=== PATIENT | female | born 1970 | race American Indian/Alaskan Native ===

== ENCOUNTER 2016-09-15 11:07 | Emergency (ER) | payer SELFPAY ==
[2016-09-15 12:51] LABS: Basophils % (Auto) 0.7 % (0.0-1.8); Hematocrit 40.5 % (30.3-42.9); Hemoglobin 13.5 gm/dl (10.1-14.3); Mean Corpuscular HGB Conc 33 % (30-34); Mean Corpuscular Hemoglobin 30 pg (28-32); Mean Corpuscular Volume 89 fl (79-97); Platelet Count 193 K/mm3 (140-440); Red Blood Count 4.55 M/mm3 (3.65-5.03); Red Cell Distribution Width 13.4 % (13.2-15.2); White Blood Count 6.3 K/mm3 (4.5-11.0)
[2016-09-15 13:06] LABS: Creatine Kinase MB 1.5 ng/mL (0.0-4.0)
[2016-09-15 13:08] LABS: Alanine Aminotransferase 13 units/L (7-56); Albumin 4.3 g/dL (3.9-5); Albumin/Globulin Ratio 1.3 %; Alkaline Phosphatase 90 units/L (35-129); Bilirubin,Total 0.4 mg/dL (0.1-1.2); Blood Urea Nitrogen 12 mg/dL (7-17); Calcium 8.5 mg/dL (8.4-10.2); Carbon Dioxide 28 mmol/L (22-30); Chloride 102.2 mmol/L (98-107); Creatine Kinase 129 units/L (30-135); Glucose 100 mg/dL (65-100); Lipase 18 units/L (13-60); Potassium 3.8 mmol/L (3.6-5.0); Sodium 143 mmol/L (137-145); Total Protein 7.5 g/dL (6.3-8.2)
[2016-09-15 13:15] LABS: Anion Gap 17 mmol/L
[2016-09-15 13:47] LABS: Bilirubin,Urine NEG (Negative); Blood,Urine NEG (Negative); Ketones,Urine NEG (Negative); Leukocyte Esterase,Urine NEG (Negative); Mucus,Urine FEW /HPF; Nitrite,Urine NEG (Negative); Protein,Urine <15 mg/dL mg/dL (Negative); Urobilinogen,Urine < 2.0 mg/dL (<2.0)
[2016-09-15] MEDS ORDERED: CATAPRES PO ONE (14:28)
--- NOTE | 2016-09-15 14:28 | Emergency Department Report ---
Chief Complaint: Chest Pain Stated Complaint: CHEST PAIN/SOB/DIZZINESS/ABD PAIN - HPI History of Present Illness: Patient with hx of HTN, CHF, epilepsy, acid reflux c/o sharp left-sided chest pain and mid-upper abdmonial pain x couple of days. Reports headaches, nausea, vomiting, dizziness, and light-headedness. Reports hysterectomy 2002. - Exam Vital Signs: Vital Signs 09/15/16 11:30 Temperature 97.2 F L Pulse Rate 78 Respiratory 14 Rate Blood Pressure 209/134 O2 Sat by Pulse 97 Oximetry Physical Exam: General: Chronically debilitated-appearing. NAD. MSE screening note: Focused history and physical exam performed. Due to findings the following was ordered: ED Disposition for MSE Condition: Stable
[2016-09-15] MEDS ORDERED: NITROSTAT SL PRN (17:31)
[2016-09-15] MEDS ORDERED: PEPCID IV ONE (17:31)
[2016-09-15] MEDS ORDERED: ALUM-MAG HYDROX-SIMETH 200-200-20MG/5ML PO ONE (17:31)
--- NOTE | 2016-09-15 17:32 | Emergency Department Report ---
[id number] CHEST PAIN/SOB/DIZZINESS/ABD PAIN Time Seen by Provider: 09/15/16 17:09 Source: patient, RN notes reviewed Mode of arrival: Ambulatory Limitations: No Limitations - History of Present Illness Initial comments: This is a 46-year-old female, whom I have evaluated in the past. Her make up girl is Dr. Smith. Past medical history includes nonischemic cardiomyopathy, hypertension, high cholesterol, seizure disorder. Patient had an echocardiogram in November 2015, which demonstrated an ejection fraction of 40-45%, mildly decreased systolic left ventricular function. 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 Of note, patient has had multiple evaluations in this hospital for hypertension , chest pain, shortness of breath and near syncope. The patient presents today with her typical constellation of symptoms. She complains of central and left-sided chest pain, that radiates to the left upper extremity. There is nausea, shortness of breath, and generalized weakness. Symptoms have been present since the morning. She also complains of epigastric and right upper quadrant pain. It is associated with nausea. There is no lower abdominal pain. No irritative and obstructive urinary symptoms. Patient also complains of dizziness which she describes as sensation of room spinning. There is no sudden or severe thunderclap headache. There is no leg pain. There is no leg swelling. No recent trips greater than 4 hours. No recent hospital admissions. Does not take control tablets. -: Gradual Location: chest, abdomen Radiation: extremity Quality: burning, aching Consistency: intermittent Improves with: rest Worsens with: movement Associated Symptoms: chest pain, loss of appetite, malaise, nausea/vomiting, shortness of breath, weakness - Related Data Previous Rx's Medication Instructions Recorded Last Taken Type ALBUTEROL Inhaler [ProAir HFA 2 puff IH QID PRN #1 inhalation 11/17/15 Unknown Rx Inhaler] Aspirin [Aspirin BABY CHEW TAB] 81 mg PO QDAY #30 tab.chew 11/17/15 Unknown Rx Beclomethasone Dipropionate [Qvar 1 inhalation IH BID PRN #1 11/17/15 Unknown Rx 80MCG] aer.w.adap Butalb/Acetamin/Caff 50-325-40 1 tab PO Q8H PRN #20 tablet 11/17/15 Unknown Rx [Fioricet] Divalproex ER [Depakote ER] 1,000 mg PO QDAY #60 tablet 11/17/15 Unknown Rx Rosuvastatin (Nf) [Crestor] 20 mg PO QHS #30 tablet 11/17/15 Unknown Rx Spironolactone [Aldactone] 25 mg PO QDAY #30 tablet 11/17/15 Unknown Rx hydrALAZINE [Apresoline TAB] 100 mg PO Q8HR #90 tablet 11/17/15 Unknown Rx Carvedilol [Coreg] 6.25 mg PO BID #60 tablet 09/15/16 Unknown Rx Famotidine [Pepcid] 20 mg PO QDAY #20 tablet 09/15/16 Unknown Rx Ondansetron [Zofran Odt] 4 mg PO QID PRN #20 tab.rapdis 09/15/16 Unknown Rx Allergies Allergy/AdvReac Type Severity Reaction Status Date / Time Iodinated Contrast Media - Allergy Rash Verified 11/14/15 22:10 IV Dye lisinopril Allergy Swelling Verified 11/14/15 22:10 morphine Allergy Rash Verified 11/14/15 22:10 ED Review of Systems ROS: Stated complaint: CHEST PAIN/SOB/DIZZINESS/ABD PAIN Other details as noted in HPI Constitutional: malaise Eyes: denies: eye discharge ENT: denies: epistaxis Respiratory: see HPI Cardiovascular: chest pain Gastrointestinal: abdominal pain Genitourinary: denies: urgency, dysuria Skin: denies: lesions Neurological: headache Psychiatric: anxiety ED Past Medical Hx - Past Medical History Hx Hypertension: Yes Hx Heart Attack/AMI: No Hx Congestive Heart Failure: Yes Hx Diabetes: No Hx Deep Vein Thrombosis: No Hx Pulmonary Embolism: No Hx GERD: Yes Hx Sickle Cell Disease: No Hx Headaches / Migraines: Yes Hx Seizures: Yes Hx Asthma: Yes Hx COPD: Yes Hx Tuberculosis: No Hx Dementia: No Hx HIV: No - Surgical History Hx Coronary Stent: No Hx Open Heart Surgery: No Hx Pacemaker: No Hx Internal Defibrillator: No Hx Cholecystectomy: No Hx Appendectomy: No Hx Breast Surgery: Yes (Breast reduction) Additional Surgical History: hyst - Social History Smoking Status: Never Smoker Substance Use Type: None - Medications Home Medications: Home Medications Medication Instructions Recorded Confirmed Last Taken Type ALBUTEROL Inhaler [ProAir HFA 2 puff IH QID PRN #1 inhalation 11/17/15 Unknown Rx Inhaler] Aspirin [Aspirin BABY CHEW TAB] 81 mg PO QDAY #30 tab.chew 11/17/15 Unknown Rx Beclomethasone Dipropionate [Qvar 1 inhalation IH BID PRN #1 11/17/15 Unknown Rx 80MCG] aer.w.adap Butalb/Acetamin/Caff 50-325-40 1 tab PO Q8H PRN #20 tablet 11/17/15 Unknown Rx [Fioricet] Divalproex ER [Depakote ER] 1,000 mg PO QDAY #60 tablet 11/17/15 Unknown Rx Rosuvastatin (Nf) [Crestor] 20 mg PO QHS #30 tablet 11/17/15 Unknown Rx Spironolactone [Aldactone] 25 mg PO QDAY #30 tablet 11/17/15 Unknown Rx hydrALAZINE [Apresoline TAB] 100 mg PO Q8HR #90 tablet 11/17/15 Unknown Rx Carvedilol [Coreg] 6.25 mg PO BID #60 tablet 09/15/16 Unknown Rx Famotidine [Pepcid] 20 mg PO QDAY #20 tablet 09/15/16 Unknown Rx Ondansetron [Zofran Odt] 4 mg PO QID PRN #20 tab.rapdis 09/15/16 Unknown Rx ED Physical Exam - General Limitations: No Limitations General appearance: alert, in no apparent distress - Head Head exam: Present: atraumatic, normocephalic - Eye Eye exam: Present: normal appearance, PERRL, EOMI. Absent: nystagmus - ENT ENT exam: Present: normal exam, normal orophraynx, mucous membranes moist, normal external ear exam - Neck Neck exam: Present: normal inspection, full ROM. Absent: tenderness, meningismus - Respiratory Respiratory exam: Present: normal lung sounds bilaterally. Absent: respiratory distress, wheezes, rales, rhonchi, stridor, chest wall tenderness - Cardiovascular Cardiovascular Exam: Present: regular rate, normal rhythm, normal heart sounds. Absent: bradycardia, tachycardia, irregular rhythm, systolic murmur, diastolic murmur, rubs, gallop - GI/Abdominal GI/Abdominal exam: Present: soft, tenderness, normal bowel sounds, other (there is epigastric and right upper quadrant tenderness, there is no rebound, guarding or peritoneal signs.). Absent: distended, guarding, rebound, rigid, pulsatile mass - Extremities Exam Extremities exam: Present: normal inspection, full ROM, normal capillary refill. Absent: tenderness, pedal edema, joint swelling, calf tenderness - Back Exam Back exam: Present: normal inspection, full ROM. Absent: tenderness, CVA tenderness (R), CVA tenderness (L), muscle spasm, paraspinal tenderness, vertebral tenderness - Neurological Exam Neurological exam: Present: alert, oriented X3, normal gait (there is no pass pointing. Normal [id number]. Negative pronator drift. Normal gait.), other (Extraocular movements intact. Tongue midline. No facial droop. Facial sensation intact to light touch in the V1, V2, V3 distribution bilaterally. 5 and 5 strength in 4 extremities.. Sensation is intact to light touch in 4 extremities.). Absent: motor sensory deficit - Psychiatric Psychiatric exam: Present: anxious - Skin Skin exam: Present: warm, dry, intact, normal color. Absent: rash ED Course Vital Signs 09/15/16 09/15/16 09/15/16 11:30 17:39 17:57 Temperature 97.2 F L Pulse Rate 78 87 Respiratory 14 23 20 Rate Blood Pressure 209/134 Blood Pressure [Right] O2 Sat by Pulse 97 98 Oximetry 09/15/16 09/15/16 09/15/16 18:00 18:05 18:09 Temperature Pulse Rate 82 94 H 87 Respiratory 20 Rate Blood Pressure 227/134 227/134 227/134 Blood Pressure [Right] O2 Sat by Pulse 98 Oximetry 09/15/16 09/15/16 19:07 20:11 Temperature 98.2 F 98.1 F Pulse Rate 84 91 H Respiratory 18 16 Rate Blood Pressure 180/111 Blood Pressure 180/111 175/103 [Right] O2 Sat by Pulse 100 100 Oximetry - Reevaluation(s) Reevaluation #1: 09/15/16 18:09 Differential diagnosis: Hypertensive urgency/emergency, peripheral vertigo, intracranial hemorrhage, acute coronary syndrome, noncompliance with medications , GERD, gastritis, biliary colic Assessment and plan: 46-year-old female with known nonischemic cardiomyopathy, negative nuclear stress test in 2014, low probability nuclear medicine study last year when I evaluated her, with her typical constellation of chest pain, nausea, vomiting, dizziness, hypertension. There are no pulmonary embolus or DVT risk factors, the patient is low risk by well's criteria, and she is perc negative. She is actively vomiting, currently her blood pressure is 240 systolic. She will be given Zofran, hydralazine, as he did not to glycerin. Noncontrast CAT scan of the head is ordered. Right upper quadrant ultrasound is ordered. Laboratory studies reviewed and are unremarkable. We will reassess once or imaging studies have resulted, and once her therapies have taken effect. Reevaluation #2: 09/15/16 20:05 I have discussed the case with the covering make up girl for patient's private make up girl, Dr. Claudio. He recommends discharge and outpatient cardiology follow-up. Patient has presented to this hospital multiple times for similar complaints. She's had recent echocardiograms, negative nuclear stress test, negative troponin, low probability nuclear medicine study. Patient's blood pressure is improved, her right upper quadrant ultrasound demonstrates no acute disease that would require emergent surgical intervention , her noncontrast CAT scan of the head is negative, and she is tolerating ice chips. Her carvedilol will be refilled. ED Medical Decision Making - Lab Data Result diagrams: 09/15/16 12:25 09/15/16 12:25 Vital Signs 09/15/16 09/15/16 09/15/16 11:30 17:57 18:05 Temperature 97.2 F L Pulse Rate 78 87 94 H Respiratory 14 20 Rate Blood Pressure 209/134 227/134 O2 Sat by Pulse 97 98 Oximetry 09/15/16 18:09 Temperature Pulse Rate 87 Respiratory Rate Blood Pressure 227/134 O2 Sat by Pulse Oximetry Lab Results 09/15/16 09/15/16 09/15/16 Range/Units 12:25 12:25 12:25 WBC 6.3 (4.5-11.0) K/mm3 RBC 4.55 (3.65-5.03) M/mm3 Hgb 13.5 (10.1-14.3) gm/dl Hct 40.5 (30.3-42.9) % MCV 89 (79-97) fl MCH 30 (28-32) pg MCHC 33 (30-34) % RDW 13.4 (13.2-15.2) % Plt Count 193 (140-440) K/mm3 Lymph % (Auto) 33.9 (13.4-35.0) % [place] % (Auto) 6.2 (0.0-7.3) % Eos % (Auto) 3.0 (0.0-4.3) % Baso % (Auto) 0.7 (0.0-1.8) % Lymph # 2.1 (1.2-5.4) K/mm3 [place] # 0.4 (0.0-0.8) K/mm3 Eos # 0.2 (0.0-0.4) K/mm3 Baso # 0.0 (0.0-0.1) K/mm3 Seg Neutrophils % 56.2 (40.0-70.0) % Seg Neutrophils # 3.5 (1.8-7.7) K/mm3 Sodium 143 (137-145) mmol/L Potassium 3.8 (3.6-5.0) mmol/L Chloride 102.2 (98-107) mmol/L Carbon Dioxide 28 (22-30) mmol/L Anion Gap 17 mmol/L BUN 12 (7-17) mg/dL Creatinine 0.8 (0.7-1.2) mg/dL Estimated GFR > 60 ml/min BUN/Creatinine Ratio 15.00 % Glucose 100 (65-100) mg/dL Calcium 8.5 (8.4-10.2) mg/dL Total Bilirubin 0.4 (0.1-1.2) mg/dL AST 15 (5-40) units/L ALT 13 (7-56) units/L Alkaline Phosphatase 90 (35-129) units/L Total Creatine Kinase 129 (30-135) units/L CK-MB (CK-2) 1.5 (0.0-4.0) ng/mL CK-MB (CK-2) Rel Index 1.1 (0-4) Troponin T < 0.010 (0.00-0.029) ng/mL Total Protein 7.5 (6.3-8.2) g/dL Albumin 4.3 (3.9-5) g/dL Albumin/Globulin Ratio 1.3 % Lipase 18 (13-60) units/L HCG, Qual Negative (Negative) Urine Color (Yellow) Urine Turbidity (Clear) Urine pH (5.0-7.0) Ur Specific [place] (1.003-1.030) Urine Protein (Negative) mg/dL Urine Glucose (UA) (Negative) mg/dL Urine Ketones (Negative) mg/dL Urine Blood (Negative) Urine Nitrite (Negative) Urine Bilirubin (Negative) Urine Urobilinogen (<2.0) mg/dL Ur Leukocyte Esterase (Negative) Urine WBC (Auto) (0.0-6.0) /HPF Urine RBC (Auto) (0.0-6.0) /HPF U Epithel Cells (Auto) (0-13.0) /HPF Urine Mucus /HPF 09/15/16 09/15/16 Range/Units 13:00 16:20 WBC (4.5-11.0) K/mm3 RBC (3.65-5.03) M/mm3 Hgb (10.1-14.3) gm/dl Hct (30.3-42.9) % MCV (79-97) fl MCH (28-32) pg MCHC (30-34) % RDW (13.2-15.2) % Plt Count (140-440) K/mm3 Lymph % (Auto) (13.4-35.0) % [place] % (Auto) (0.0-7.3) % Eos % (Auto) (0.0-4.3) % Baso % (Auto) (0.0-1.8) % Lymph # (1.2-5.4) K/mm3 [place] # (0.0-0.8) K/mm3 Eos # (0.0-0.4) K/mm3 Baso # (0.0-0.1) K/mm3 Seg Neutrophils % (40.0-70.0) % Seg Neutrophils # (1.8-7.7) K/mm3 Sodium (137-145) mmol/L Potassium (3.6-5.0) mmol/L Chloride (98-107) mmol/L Carbon Dioxide (22-30) mmol/L Anion Gap mmol/L BUN (7-17) mg/dL Creatinine (0.7-1.2) mg/dL Estimated GFR ml/min BUN/Creatinine Ratio % Glucose (65-100) mg/dL Calcium (8.4-10.2) mg/dL Total Bilirubin (0.1-1.2) mg/dL AST (5-40) units/L ALT (7-56) units/L Alkaline Phosphatase (35-129) units/L Total Creatine Kinase (30-135) units/L CK-MB (CK-2) (0.0-4.0) ng/mL CK-MB (CK-2) Rel Index (0-4) Troponin T < 0.010 (0.00-0.029) ng/mL Total Protein (6.3-8.2) g/dL Albumin (3.9-5) g/dL Albumin/Globulin Ratio % Lipase (13-60) units/L HCG, Qual (Negative) Urine Color Yellow (Yellow) Urine Turbidity Clear (Clear) Urine pH 8.0 H (5.0-7.0) Ur Specific [place] 1.016 (1.003-1.030) Urine Protein <15 mg/dl (Negative) mg/dL Urine Glucose (UA) Neg (Negative) mg/dL Urine Ketones Neg (Negative) mg/dL Urine Blood Neg (Negative) Urine Nitrite Neg (Negative) Urine Bilirubin Neg (Negative) Urine Urobilinogen < 2.0 (<2.0) mg/dL Ur Leukocyte Esterase Neg (Negative) Urine WBC (Auto) 1.0 (0.0-6.0) /HPF Urine RBC (Auto) 1.0 (0.0-6.0) /HPF U Epithel Cells (Auto) 1.0 (0-13.0) /HPF Urine Mucus Few /HPF - EKG Data 09/15/16 18:12 Normal sinus, 82 bpm, prolonged QTC at 476 ms, borderline left ventricular hypertrophy, T-wave inversion V5 and V6, atrial enlargement, not morphologically consistent with STEMI. When compared to old EKG, appears essentially unchanged. - Radiology Data Radiology results: report reviewed, image reviewed interpreted by me: xr chest: Cardiomegaly, no acute disease. Ultrasound demonstrates no evidence of cholecystitis. Echogenic liver suggests hepatocellular disease, most likely steatosis. Noncontrast CAT scan of the head is negative Critical care attestation.: If time is entered above; I have spent that time in minutes in the direct care of this critically ill patient, excluding procedure time. ED Disposition Clinical Impression: Elevated blood pressure, Abdominal pain Disposition: DISCHARGED TO HOME OR SELFCARE Is pt being admited?: No Does the pt Need Aspirin: No Condition: Good Instructions: Acute Abdominal Pain (ED), Hypertension (ED) Additional Instructions: Continue current outpatient medications. I have given you a refill for your carvedilol. Follow-up with her make up girl within the next 2-3 days. It is very important to closely follow up with her outpatient primary care doctor or make up girl for further management/evaluation/treatment of your hypertension/ elevated blood pressure. Long-term complications of elevated blood pressure include stroke, heart attack, disability, , paralysis, permanent loss of quality of life. I contacted the make up girl covering for your private make up girl, and he reported that he should contact the office in the morning to arrange outpatient follow-up. Return to the ER right away with new pain, worsening pain, migration of pain, fevers or chills, intractable nausea or vomiting, inability to tolerate liquid feeds. Avoid heavy and spicy foods. Prescriptions: Carvedilol [Coreg] 6.25 mg PO BID #60 tablet Famotidine [Pepcid] 20 mg PO QDAY #20 tablet Ondansetron [Zofran Odt] 4 mg PO QID PRN #20 tab.rapdis PRN Reason: Nausea Referrals: KRYSTAL SMITH MD [Primary Care Provider] - 3-5 Days TONI LOUIS MD [Staff Physician] - 3-5 Days
[2016-09-15] MEDS ORDERED: APRESOLINE ONE (18:00)
[2016-09-15] MEDS ORDERED: ZOFRAN IV ONE (18:05)
[2016-09-15] MEDS ORDERED: APRESOLINE IV ONE (18:05)
--- NOTE | 2016-09-15 18:55 | Ultrasound Report ---
FINAL REPORT EXAM: US ABDOMEN LIMITED HISTORY: ruq pain TECHNIQUE: Ultrasound examination of the abdomen PRIORS: None. FINDINGS: The visualized portion of the following structures reveal: Nonspecific increased echogenicity of liver parenchyma may reflect fatty infiltration. No visualized focal liver lesion. No definite liver enlargement on this exam. No evidence of gallbladder calculus or pericholecystic fluid. No evidence of gallbladder wall thickening. Normal diameter CBD. No evidence of pancreas mass in the limited visualized portion. No definite focal abnormality in the right kidney. No hydronephrosis. No evidence of renal calculus. No focal renal lesion. Normal caliber IVC. No evidence of aortic aneurysm. No evidence of ascites. IMPRESSION: Echogenic liver suggesting hepatocellular disease, commonly steatosis
--- NOTE | 2016-09-15 19:29 | Cat Scan Report ---
FINAL REPORT PROCEDURE: CT HEAD/BRAIN WO CON TECHNIQUE: Computerized tomography of the head was performed without contrast material. HISTORY: Dizziness. Hypertension. COMPARISON: No prior studies are available for comparison. FINDINGS: Brain: Brain density appears normal. No evidence of intracranial hemorrhage. No parenchymal hemorrhage, mass lesions or mass effect are seen. No abnormal extraxial fluid collects or masses are seen. Ventricles: Ventricles are normal size and are midline. Bone Windows: No evidence of skull fracture. Paranasal sinuses: Clear Mastoid air cells: Clear IMPRESSION: Negative examination
[2016-09-15 20:15] VITALS: BP 175/103
[2016-09-15] MEDS ORDERED: TYLENOL PO ONE (20:51)
--- NOTE | 2016-09-16 08:02 | XRay Report ---
PORTABLE CHEST: An AP portable view of the chest demonstrates a normal cardiac contour considering the limits of this technique. The lungs are clear with no evidence of infiltrate, fluid or failure. No change compared to the prior study of April 29, 2016. IMPRESSION: Normal portable chest.
== END 2016-09-15 21:00 | disposition home or self-care (01) ==
LOC: ED 11:07
DX: I10 Essential (primary) hypertension (principal); R10.11 Right upper quadrant pain; I50.9 Heart failure, unspecified; K21.9 Gastro-esophageal reflux disease without esophagitis; G43.909 Migraine, unspecified, not intractable, without status migrainosus; R56.9 Unspecified convulsions; J45.909 Unspecified asthma, uncomplicated; J44.9 Chronic obstructive pulmonary disease, unspecified; Z90.710 Acquired absence of both cervix and uterus; Z79.82 Long term (current) use of aspirin; Z88.6 Allergy status to analgesic agent; Z91.041 Radiographic dye allergy status
CPT/HCPCS: 36415; 70450; 71010; 76705; 80053; 81001; 82550; 82553; 83690; 83880; 84484; 84703; 85025; 96374; 96375; 99285; J0360; J2405; 93005; 93010

== ENCOUNTER 2017-02-07 11:47 | Emergency (ER) | payer MEDICAID ==
[2017-02-07 12:08] VITALS: BP 189/133
[2017-02-07] MEDS ORDERED: APRESOLINE PO ONE (12:13)
[2017-02-07] MEDS ORDERED: COREG PO ONE (12:13)
[2017-02-07 12:37] LABS: Basophils % (Auto) 0.7 % (0.0-1.8); Eosinophils % (Auto) 3.1 % (0.0-4.3); Hematocrit 39.3 % (30.3-42.9); Hemoglobin 12.9 gm/dl (10.1-14.3); Mean Corpuscular HGB Conc 33 % (30-34); Mean Corpuscular Hemoglobin 29 pg (28-32); Mean Corpuscular Volume 90 fl (79-97); Platelet Count 165 K/mm3 (140-440); Red Blood Count 4.37 M/mm3 (3.65-5.03); Red Cell Distribution Width 13.5 % (13.2-15.2); White Blood Count 6.8 K/mm3 (4.5-11.0)
[2017-02-07 12:41] LABS: Anion Gap 17 mmol/L; BUN/Creatinine Ratio 18.33; Blood Urea Nitrogen 11 mg/dL (7-17); Calcium 8.4 mg/dL (8.4-10.2); Carbon Dioxide 24 mmol/L (22-30); Chloride 102.5 mmol/L (98-107); Glucose 127 mg/dL (65-100); Potassium 4.2 mmol/L (3.6-5.0); Sodium 139 mmol/L (137-145)
--- NOTE | 2017-02-07 12:49 | XRay Report ---
CHEST 2 VIEWS INDICATION: Shortness of breath, chest pain, cough. COMPARISON: 09/15/2016. FINDINGS: PA and lateral chest radiographs demonstrate normal cardiomediastinal silhouette. Clear lungs. Intact bones. CONCLUSION: No acute disease in the chest. Thank you for the opportunity to participate in this patient's care.
[2017-02-07 15:26] LABS: Bilirubin,Urine NEG (Negative); Blood,Urine NEG (Negative); Ketones,Urine NEG (Negative); Leukocyte Esterase,Urine NEG (Negative); Mucus,Urine FEW /HPF; Nitrite,Urine NEG (Negative); Urobilinogen,Urine < 2.0 mg/dL (<2.0)
== END 2017-02-07 21:00 | disposition left against medical advice (07) ==
LOC: ED 11:47
DX: R07.9 Chest pain, unspecified (principal); Z53.21 Procedure and treatment not carried out due to patient leaving prior to being seen by health care provider
CPT/HCPCS: 36415; 71020; 80048; 81001; 83880; 84484; 85025; 93005; 93010

== ENCOUNTER 2017-11-17 11:03 | Outpatient (CLI) | payer MEDICAID ==
--- NOTE | 2017-11-17 15:40 | Ultrasound Report ---
ULTRASOUND ABDOMEN COMPLETE: TECHNIQUE: Transabdominal ultrasound with color Doppler interrogation. HISTORY: abdominal pain. COMPARISON: none. FINDINGS: LIVER: The liver is echogenic and attenuates the ultrasound beam consistent with fatty infiltration. No focal liver lesion is identified. BILIARY SYSTEM: A small amount of sludge is identified in the gallbladder. No evidence for shadowing gallstones, wall thickening or pericholecystic fluid. The CBD measures 4.8 mm. PANCREAS: Normal. SPLEEN: Normal. KIDNEYS: Normal. AORTA/IVC: Normal. ASCITES: None. IMPRESSION: Fatty infiltration of the liver. Small amount of sludge in the gallbladder. No evidence for acute cholecystitis.
== END 2017-11-17 11:04 | disposition home or self-care (01) ==
LOC: US 11:03
PROVIDERS: ATTEND General Practice
DX: K76.0 Fatty (change of) liver, not elsewhere classified (principal)
CPT/HCPCS: 76700

== ENCOUNTER 2018-11-28 11:19 | Inpatient (IN) | payer MEDICAID ==
[2018-11-28] MEDS ORDERED: ASPIRIN PO ONE (11:44)
--- NOTE | 2018-11-28 11:47 | Emergency Department Report ---
Chief Complaint: Chest Pain Stated Complaint: CHEST PAIN/NAUSEA/LEFT KNEE PAIN Time Seen by Provider: 11/28/18 11:42 - HPI History of Present Illness: This is a 48 y.o. female that presents with chest pain that is radiating to LUE. Patient reports symptoms started 2 weeks ago and she went to her PCP at [facility] and told to f/u in ER if symptoms return. PMH: COPD, CHF, HTN, & Asthma - Exam Vital Signs: Vital Signs 11/28/18 11:22 Temperature 97.1 F L Pulse Rate 71 Respiratory 17 Rate Blood Pressure 182/117 [Left] O2 Sat by Pulse 95 Oximetry MSE screening note: Focused history and physical exam performed. Due to findings the following was ordered: Labs, EKG, & CXR ED Disposition for MSE Condition: Stable
[2018-11-28 12:15] LABS: Basophils % (Auto) 0.9 % (0.0-1.8); Eosinophils # (Auto) 0.2 K/mm3 (0.0-0.4); Eosinophils % (Auto) 4.2 % (0.0-4.3); Hematocrit 38.6 % (30.3-42.9); Hemoglobin 13.2 gm/dl (10.1-14.3); Lymphocytes # (Auto) 1.9 K/mm3 (1.2-5.4); Lymphocytes % (Auto) 36.6 % (13.4-35.0); Mean Corpuscular HGB Conc 34 % (30-34); Mean Corpuscular Volume 90 fl (79-97); Monocytes # (Auto) 0.3 K/mm3 (0.0-0.8); Monocytes % (Auto) 6.3 % (0.0-7.3); Platelet Count 158 K/mm3 (140-440); Red Blood Count 4.28 M/mm3 (3.65-5.03); Red Cell Distribution Width 13.4 % (13.2-15.2)
--- NOTE | 2018-11-28 12:21 | XRay Report ---
AP CHEST: HISTORY: chest pain AP view of the chest demonstrates a normal mediastinal and cardiac contour with clear lungs and normal bony and soft tissue structures. IMPRESSION: Unremarkable AP chest.
[2018-11-28] MEDS ORDERED: PERCOCET 5/325 PO ONE (12:26)
[2018-11-28 12:29] LABS: BUN/Creatinine Ratio 19; Blood Urea Nitrogen 17 mg/dL (7-17); Calcium 9.2 mg/dL (8.4-10.2); Hemolysis Index 66
[2018-11-28] MEDS ORDERED: APRESOLINE IV ONE (12:33)
[2018-11-28] MEDS ORDERED: ZOFRAN IV ONE (12:36)
--- NOTE | 2018-11-28 12:37 | Emergency Department Report ---
ED Chest Pain HPI - General Chief Complaint: Chest Pain Stated Complaint: CHEST PAIN/NAUSEA/LEFT KNEE PAIN Time Seen by Provider: 11/28/18 11:42 Source: patient Mode of arrival: Ambulatory Limitations: No Limitations - History of Present Illness Initial Comments: 48-year-old -[place] female presents to the emergency department with complaint of chest pain, shortness of breath, palpitations, lower extremity swelling, left knee pain. The chest pain is midsternal and nonradiating and feels like a squeezing/fullness sensation. The patient does have bilateral lower extremity swelling which she says has been improving slightly but has been going on for the past week. She also has a large amount of pain to the posterior portion of the left knee but denies any trauma or injury. The chest pain has been going on for the past few weeks but has been getting progressively worse and more intense. She says it lasts for about 2-3 minutes at a time. Patient saw her primary care physician at the [facility] 2 weeks ago for the same chest pain but says that there was no medication or intervention done. She has a past medical history of COPD, CHF, migraine headaches, hypertension, seizures. Her yard stocker is Dr. Low. No recent travel or sick contacts at home. She denies any tobacco or illicit drug use or abuse. Severity scale (0 -10): 7 - Related Data Home Medications Medication Instructions Recorded Confirmed Last Taken Carvedilol [Coreg] 6.25 mg PO BID 09/19/17 11/28/18 09/19/17 Divalproex Sodium [Depakote] 1,000 mg PO TID 09/19/17 11/28/18 Unknown levETIRAcetam [Keppra] 500 mg PO TID 09/19/17 11/28/18 09/19/17 FLUoxetine HCL [FLUoxetine] 20 mg PO DAILY 04/19/18 11/28/18 Unknown Aspirin [Adult Aspirin] 81 mg PO QDAY 07/31/18 11/28/18 Unknown Atenolol/Chlorthalidone 1 each PO QDAY 07/31/18 11/28/18 Unknown [Atenolol-Chlorthalidone 100-25] Furosemide [Lasix] 20 mg PO DAILY 07/31/18 11/28/18 Unknown Potassium Chloride [K-Dur] 20 meq PO QDAY 07/31/18 11/28/18 Unknown Spironolactone [Aldactone] 50 mg PO QDAY 07/31/18 11/28/18 Unknown hydrALAZINE [Apresoline] 25 mg PO TID 07/31/18 11/28/18 Unknown Doxazosin Mesylate [Cardura] 2 mg PO DAILY 11/28/18 11/28/18 Unknown Ferrous Sulfate [Feosol] 325 mg PO QDAY 11/28/18 11/28/18 Unknown Losartan/Hydrochlorothiazide 1 each PO DAILY 11/28/18 11/28/18 Unknown [Losartan-Hctz 100-25 mg Tab] Montelukast [Singulair] 10 mg PO QPM 11/28/18 11/28/18 Unknown NIFEdipine [Nifedipine ER] 90 mg PO DAILY 11/28/18 11/28/18 Unknown clonazePAM [Clonazepam] 0.5 mg PO BID 11/28/18 11/28/18 Unknown Previous Rx's Medication Instructions Recorded Last Taken Type cloNIDine [Catapres] 0.2 mg PO BID #60 tablet 04/20/18 Unknown Rx ALBUTEROL Inhaler (OR & NICU) 2 puff IH Q4HR PRN #1 inhalation 07/31/18 Unknown Rx [ProAir HFA Inhaler] Allergies Allergy/AdvReac Type Severity Reaction Status Date / Time Iodinated Contrast- Oral and Allergy Rash Verified 11/14/15 22:10 IV Dye [Iodinated Contrast Media - IV Dye] lisinopril Allergy Swelling Verified 11/14/15 22:10 morphine Allergy Rash Verified 11/14/15 22:10 Heart Score - HEART Score History: Moderately suspicious EKG: Non-specific Age: 45-65 Risk factors: 1-2 risk factors Troponin: < normal limit HEART Score: 4 - Critical Actions Critical Actions: 4-6 pts:12-16.6% risk of adverse cardiac event. Should be admitted ED Review of Systems ROS: Stated complaint: CHEST PAIN/NAUSEA/LEFT KNEE PAIN Other details as noted in HPI Comment: All other systems reviewed and negative Constitutional: diaphoresis. denies: fever Eyes: denies: eye pain, vision change ENT: denies: ear pain, throat pain Respiratory: shortness of breath. denies: cough Cardiovascular: chest pain, palpitations, edema Gastrointestinal: nausea. denies: abdominal pain, vomiting Genitourinary: denies: dysuria, discharge Musculoskeletal: arthralgia. denies: back pain Skin: denies: rash, lesions Neurological: denies: weakness, numbness ED Past Medical Hx - Past Medical History Hx Hypertension: Yes Hx Heart Attack/AMI: No Hx Congestive Heart Failure: Yes Hx Diabetes: No Hx Deep Vein Thrombosis: No Hx Pulmonary Embolism: No Hx GERD: Yes Hx Sickle Cell Disease: No Hx Headaches / Migraines: Yes Hx Seizures: Yes Hx Asthma: Yes Hx COPD: Yes Hx Tuberculosis: No Hx Dementia: No Hx HIV: No - Surgical History Hx Coronary Stent: No Hx Open Heart Surgery: No Hx Pacemaker: No Hx Internal Defibrillator: No Hx Cholecystectomy: No Hx Appendectomy: No Hx Breast Surgery: Yes (Breast reduction) Additional Surgical History: hyst - Social History Smoking Status: Never Smoker Substance Use Type: None - Medications Home Medications: Home Medications Medication Instructions Recorded Confirmed Last Taken Type Carvedilol [Coreg] 6.25 mg PO BID 09/19/17 11/28/18 09/19/17 History Divalproex Sodium [Depakote] 1,000 mg PO TID 09/19/17 11/28/18 Unknown History levETIRAcetam [Keppra] 500 mg PO TID 09/19/17 11/28/18 09/19/17 History FLUoxetine HCL [FLUoxetine] 20 mg PO DAILY 04/19/18 11/28/18 Unknown History cloNIDine [Catapres] 0.2 mg PO BID #60 tablet 04/20/18 11/28/18 Unknown Rx ALBUTEROL Inhaler (OR & NICU) 2 puff IH Q4HR PRN #1 inhalation 07/31/18 11/28/18 Unknown Rx [ProAir HFA Inhaler] Aspirin [Adult Aspirin] 81 mg PO QDAY 07/31/18 11/28/18 Unknown History Atenolol/Chlorthalidone 1 each PO QDAY 07/31/18 11/28/18 Unknown History [Atenolol-Chlorthalidone 100-25] Furosemide [Lasix] 20 mg PO DAILY 07/31/18 11/28/18 Unknown History Potassium Chloride [K-Dur] 20 meq PO QDAY 07/31/18 11/28/18 Unknown History Spironolactone [Aldactone] 50 mg PO QDAY 07/31/18 11/28/18 Unknown History hydrALAZINE [Apresoline] 25 mg PO TID 07/31/18 11/28/18 Unknown History Doxazosin Mesylate [Cardura] 2 mg PO DAILY 11/28/18 11/28/18 Unknown History Ferrous Sulfate [Feosol] 325 mg PO QDAY 11/28/18 11/28/18 Unknown History Losartan/Hydrochlorothiazide 1 each PO DAILY 11/28/18 11/28/18 Unknown History [Losartan-Hctz 100-25 mg Tab] Montelukast [Singulair] 10 mg PO QPM 11/28/18 11/28/18 Unknown History NIFEdipine [Nifedipine ER] 90 mg PO DAILY 11/28/18 11/28/18 Unknown History clonazePAM [Clonazepam] 0.5 mg PO BID 11/28/18 11/28/18 Unknown History ED Physical Exam - General Limitations: No Limitations - Other Other exam information: GENERAL: The patient is well-developed well-nourished. HEENT: Normocephalic. Atraumatic. Patient has moist mucous membranes. EYES: Extraocular motions are intact. Pupils are equal and reactive to light bilaterally. NECK: Supple. Trachea is midline. CHEST/LUNGS: Clear to auscultation. There is no respiratory distress noted. HEART/CARDIOVASCULAR: Regular. There is no tachycardia. There is no obvious murmur. ABDOMEN: Abdomen is soft, nontender. Patient has normal bowel sounds. Obese habitus. SKIN: Bilateral nonpitting swelling of the lower extremities. NEURO: The patient is awake, alert, and oriented. The patient is cooperative. The patient has no focal neurologic deficits. The patient has normal speech. MUSCULOSKELETAL: There is tenderness to palpation to the medial and posterior left knee but no signs of any deformity. There is no evidence of acute injury. ED Course Vital Signs 11/28/18 11/28/18 11/28/18 11:22 11:42 12:14 Temperature 97.1 F L Pulse Rate 71 Respiratory 17 Rate Blood Pressure 170/107 Blood Pressure 182/117 [Left] O2 Sat by Pulse 95 100 Oximetry 11/28/18 11/28/18 11/28/18 12:15 12:24 12:31 Temperature Pulse Rate 63 Respiratory 16 15 Rate Blood Pressure 171/97 168/92 Blood Pressure [Left] O2 Sat by Pulse 97 98 Oximetry 11/28/18 11/28/18 11/28/18 12:34 12:45 13:00 Temperature 98.8 F Pulse Rate 66 Respiratory 16 18 Rate Blood Pressure 168/92 Blood Pressure [Left] O2 Sat by Pulse 100 Oximetry 11/28/18 11/28/18 11/28/18 13:01 13:15 13:31 Temperature Pulse Rate 62 61 Respiratory 22 17 16 Rate Blood Pressure 168/92 168/92 Blood Pressure [Left] O2 Sat by Pulse 97 99 Oximetry 11/28/18 11/28/18 11/28/18 14:17 14:30 15:01 Temperature Pulse Rate 68 63 64 Respiratory 19 15 13 Rate Blood Pressure 168/92 166/94 128/81 Blood Pressure [Left] O2 Sat by Pulse 98 96 94 Oximetry 11/28/18 11/28/18 11/28/18 15:31 16:00 16:30 Temperature Pulse Rate 66 59 L 61 Respiratory 16 16 Rate Blood Pressure 142/75 154/92 168/99 Blood Pressure [Left] O2 Sat by Pulse 95 96 94 Oximetry 11/28/18 18:03 Temperature Pulse Rate Respiratory Rate Blood Pressure 138/90 Blood Pressure [Left] O2 Sat by Pulse 95 Oximetry DEVIN score - Devin Score Age > 65: (0) No Aspirin use within the Past 7 Days: (1) Yes 3 or more CAD Risk Factors: (0) No 2 or more Angina events in past 24 hrs: (1) Yes Known CAD with more than 50% Stenosis: (0) No Elevated Cardiac Markers: (0) No ST Deviation Greater than 0.5mm: (0) No DEVIN Score: 2 ED Medical Decision Making - Lab Data Result diagrams: 11/28/18 11:53 11/28/18 11:54 - EKG Data -: EKG Interpreted by Me EKG shows normal: sinus rhythm, axis (left axis deviation), intervals, QRS compl exes (LVH), ST-T waves (nonspecific T-wave changes) Rate: normal - EKG Data When compared to previous EKG there are: no significant change Interpretation: unchanged when compared t (04/22/18) - Radiology Data Radiology results: report reviewed, image reviewed interpreted by me: Chest x-ray does not show any pneumothorax, pleural effusion, pneumonia or obvious focal consolidation. PROCEDURE: VL VENOUS DUPLEX LE BILAT TECHNIQUE: Duplex Doppler ultrasound of the veins of the bilateral lower extremities was performed HISTORY: LE swelling, left posterior leg/knee pain COMPARISONS: None. FINDINGS: The veins of the right lower extremity are patent, compressible, and demonstrate normal waveforms and augmentation. The veins of the left lower extremity are patent, compressible, and demonstrate normal waveforms and augmentation. IMPRESSION: No evidence of deep venous thrombosis of the bilateral lower extremities. This document is electronically signed by Lucia Jack MD., November 28 2018 03: 25:58 PM ET Transcribed By: WESTON Dictated By: LUCIA JACK MD Electronically Authenticated By: LUCIA JACK MD Signed Date/Time: 11/28/18 1528 LUNG SCAN, VENTILATION AND PERFUSION: History: Short of breath, elevated d-dimer. Technique: 5mci of Tc99m MAA was infused for the perfusion images. 15mci XE 133 gas was inhaled for the ventilatory images. Correlation is made with a chest x-ray dated 11/28/18. Findings: Inhalation of Xenon gas demonstrates a normal distribution of the activity throughout both lungs. The wash out phases show no focal retention of activity. After injection of Technetium 99m macroaggregated albumin gamma camera imaging of the lungs in multiple projections demonstrates normal pulmonary contours with a homogeneous distribution of activity. No focal areas of perfusion deficiency are identified. IMPRESSION: Low probability for pulmonary embolus. Transcribed By: DONAL Dictated By: JOE CARROLL JR, MD Electronically Authenticated By: JOE CARROLL JR, MD Signed Date/Time: 11/28/18 7320 - Medical Decision Making This patient presents to the emergency department with complaint of some chest pain, shortness of breath, palpitations, lower extremity swelling. EKG does not show any signs of ST elevation UT. Chest x-ray did not show any focal consolidation, pneumothorax, pneumonia, pleural effusions or any other acute process. Labs were mostly unremarkable except for an elevated d-dimer level. For this reason, and secondary to her iodine contrast allergy, a VQ scan was done that did not show any signs of pulmonary embolism. She also had bilateral lower extremity venous Dopplers that did not show any signs of any DVT. Patient says it has been a few years since she had any type of stress test or full cardiac workup and she continues to have some chest discomfort. For this reason the patient will be admitted to hospital for further evaluation and treatment was accepted for admission by the hospitalist, Dr. Arellano. - Differential Diagnosis UT, PE, CHF, Bakers Cyst, DVT Critical Care Time: No Critical care attestation.: If time is entered above; I have spent that time in minutes in the direct care of this critically ill patient, excluding procedure time. ED Disposition Clinical Impression: Acute chest pain, Left knee pain, Lower extremity edema Cardiomyopathy Qualifiers: Cardiomyopathy type: unspecified Qualified Code(s): I42.9 - Cardiomyopathy, unspecified Disposition: OP ADMIT IP TO THIS HOSP Is pt being admited?: Yes Condition: Fair Time of Disposition: 15:28
--- NOTE | 2018-11-28 14:54 | Nuclear Medicine Report ---
LUNG SCAN, VENTILATION AND PERFUSION: History: Short of breath, elevated d-dimer. Technique: 5mci of Tc99m MAA was infused for the perfusion images. 15mci XE 133 gas was inhaled for the ventilatory images. Correlation is made with a chest x-ray dated 11/28/18. Findings: Inhalation of Xenon gas demonstrates a normal distribution of the activity throughout both lungs. The wash out phases show no focal retention of activity. After injection of Technetium 99m macroaggregated albumin gamma camera imaging of the lungs in multiple projections demonstrates normal pulmonary contours with a homogeneous distribution of activity. No focal areas of perfusion deficiency are identified. IMPRESSION: Low probability for pulmonary embolus.
--- NOTE | 2018-11-28 15:28 | Vascular Lab Report ---
PROCEDURE: VL VENOUS DUPLEX LE BILAT TECHNIQUE: Duplex Doppler ultrasound of the veins of the bilateral lower extremities was performed HISTORY: LE swelling, left posterior leg/knee pain COMPARISONS: None. FINDINGS: The veins of the right lower extremity are patent, compressible, and demonstrate normal waveforms and augmentation. The veins of the left lower extremity are patent, compressible, and demonstrate normal waveforms and augmentation. IMPRESSION: No evidence of deep venous thrombosis of the bilateral lower extremities. This document is electronically signed by Lucia Barraza MD., November 28 2018 03:25:58 PM ET
[2018-11-28] MEDS ORDERED: DILAUDID IV ONE (15:31)
[2018-11-28] MEDS ORDERED: DILAUDID ONE (16:04)
[2018-11-28] MEDS ORDERED: BENADRYL IV PRN (18:10)
[2018-11-28] MEDS ORDERED: BENADRYL ONE (18:34)
[2018-11-28] MEDS ORDERED: ZOFRAN IV PRN (21:36)
[2018-11-28] MEDS ORDERED: PROAIR IH PRN (22:56)
[2018-11-28] MEDS ORDERED: TYLENOL PO PRN (23:00)
[2018-11-28] MEDS ORDERED: SODIUM CHLORIDE FLUSH SYRINGE 10 ML IV PRN (23:00)
[2018-11-28] MEDS ORDERED: DILAUDID IV PRN (23:00)
[2018-11-28] MEDS ORDERED: PROVENTIL IH PRN (23:04)
--- NOTE | 2018-11-28 23:15 | History and Physical Report ---
History of Present Illness Date of examination: 11/28/18 Date of admission: 11/28/18 15:29 Chief complaint: Chest pain for 3 weeks History of present illness: 48-year-old -[place] female with multiple medical problems including hypertension, seizure disorder, depression, and anemia and asthma comes to the emergency room for recurrent chest pain which has been going on for last couple of weeks associated with palpitations and shortness of breath. Patient also has bilateral swelling of the lower extremities. No orthopnea. No recent stress test or cardiac catheter done. Chest pain is intermittent and lasts for 2-3 minutes. Pain is dull and about 6 on a scale of 1-10. No diaphoresis. No fever or chills. No recent travel. Past Medical History Hypertension: Yes Congestive Heart Failure: Yes GERD: Yes Headaches / Migraines: Yes Seizures: Yes Asthma: Yes COPD: Yes Surgical History Breast Surgery: Yes (Breast reduction) Hysterectomy Social History Smoking Status: Never Smoker Substance Use Type: None Family history Htn Medications and Allergies Allergies Allergy/AdvReac Type Severity Reaction Status Date / Time Iodinated Contrast- Oral and Allergy Rash Verified 11/14/15 22:10 IV Dye [Iodinated Contrast Media - IV Dye] lisinopril Allergy Swelling Verified 11/14/15 22:10 morphine Allergy Rash Verified 11/14/15 22:10 Home Medications Medication Instructions Recorded Confirmed Last Taken Type Carvedilol [Coreg] 6.25 mg PO BID 09/19/17 11/28/18 09/19/17 History Divalproex Sodium [Depakote] 1,000 mg PO TID 09/19/17 11/28/18 Unknown History levETIRAcetam [Keppra] 500 mg PO TID 09/19/17 11/28/18 09/19/17 History FLUoxetine HCL [FLUoxetine] 20 mg PO DAILY 04/19/18 11/28/18 Unknown History cloNIDine [Catapres] 0.2 mg PO BID #60 tablet 04/20/18 11/28/18 Unknown Rx ALBUTEROL Inhaler (OR & NICU) 2 puff IH Q4HR PRN #1 inhalation 07/31/18 11/28/18 Unknown Rx [ProAir HFA Inhaler] Aspirin [Adult Aspirin] 81 mg PO QDAY 07/31/18 11/28/18 Unknown History Atenolol/Chlorthalidone 1 each PO QDAY 07/31/18 11/28/18 Unknown History [Atenolol-Chlorthalidone 100-25] Furosemide [Lasix] 20 mg PO DAILY 07/31/18 11/28/18 Unknown History Potassium Chloride [K-Dur] 20 meq PO QDAY 07/31/18 11/28/18 Unknown History Spironolactone [Aldactone] 50 mg PO QDAY 07/31/18 11/28/18 Unknown History hydrALAZINE [Apresoline] 25 mg PO TID 07/31/18 11/28/18 Unknown History Doxazosin Mesylate [Cardura] 2 mg PO DAILY 11/28/18 11/28/18 Unknown History Ferrous Sulfate [Feosol] 325 mg PO QDAY 11/28/18 11/28/18 Unknown History Losartan/Hydrochlorothiazide 1 each PO DAILY 11/28/18 11/28/18 Unknown History [Losartan-Hctz 100-25 mg Tab] Montelukast [Singulair] 10 mg PO QPM 11/28/18 11/28/18 Unknown History NIFEdipine [Nifedipine ER] 90 mg PO DAILY 11/28/18 11/28/18 Unknown History clonazePAM [Clonazepam] 0.5 mg PO BID 11/28/18 11/28/18 Unknown History Active Meds: Active Medications Acetaminophen (Tylenol) 650 mg PO Q4H PRN PRN Reason: Pain MILD(1-3)/Fever >100.5/MEZA Albuterol (Proventil) 2.5 mg IH Q4HRT PRN PRN Reason: Shortness Of Breath Aspirin (Halfprin Ec) 81 mg PO QDAY MARYA Carvedilol (Coreg) 6.25 mg PO BID MARYA Clonazepam (Klonopin) 0.5 mg PO BID MARYA Clonidine HCl (Catapres) 0.2 mg PO BID@0800,1700 MARYA Diphenhydramine HCl (Benadryl) 25 mg IV Q6H PRN PRN Reason: Itching Last Admin: 11/28/18 18:39 Dose: 25 mg Documented by: Divalproex Sodium (Depakote Dr) 1,000 mg PO TID MARYA Famotidine (Pepcid) 20 mg PO BID MARYA Ferrous Sulfate (Feosol) 325 mg PO QDAY MARYA Fluoxetine HCl (Prozac) 20 mg PO DAILY MARYA Furosemide (Lasix) 20 mg PO DAILY COUNTS INCLUDE 234 BEDS AT THE [facility] Hydralazine HCl (Apresoline) 25 mg PO TID COUNTS INCLUDE 234 BEDS AT THE [facility] Hydromorphone HCl (Dilaudid) 0.5 mg IV Q3H PRN PRN Reason: Pain , Severe (7-10) Levetiracetam (Keppra) 500 mg PO TID COUNTS INCLUDE 234 BEDS AT THE [facility] Miscellaneous Medication (Atenolol/Chlorthalidone [Atenolol-Chlorthalidone 100- 25]) 1 each PO QDAY COUNTS INCLUDE 234 BEDS AT THE [facility] Miscellaneous Medication (Doxazosin Mesylate [Cardura]) 2 mg PO DAILY COUNTS INCLUDE 234 BEDS AT THE [facility] Miscellaneous Medication (Losartan/Hydrochlorothiazide [Losartan-Hctz 100-25 Mg Tab]) 1 each PO DAILY COUNTS INCLUDE 234 BEDS AT THE [facility] Montelukast Sodium (Singulair) 10 mg PO QPM COUNTS INCLUDE 234 BEDS AT THE [facility] Nifedipine (Procardia Xl) 90 mg PO DAILY COUNTS INCLUDE 234 BEDS AT THE [facility] Ondansetron HCl (Zofran) 4 mg IV Q4H PRN PRN Reason: Nausea And Vomiting Last Admin: 11/28/18 22:08 Dose: 4 mg Documented by: Ondansetron HCl (Zofran) 4 mg IV Q8H PRN PRN Reason: Nausea And Vomiting Oxycodone/Acetaminophen (Percocet 5/325) 1 tab PO Q6H PRN PRN Reason: Pain, Moderate (4-6) Potassium Chloride (K-Dur) 10 meq PO QDAY COUNTS INCLUDE 234 BEDS AT THE [facility] Sodium Chloride (Sodium Chloride Flush Syringe 10 Ml) 10 ml IV BID COUNTS INCLUDE 234 BEDS AT THE [facility] Sodium Chloride (Sodium Chloride Flush Syringe 10 Ml) 10 ml IV PRN PRN PRN Reason: LINE FLUSH Spironolactone (Aldactone) 50 mg PO QDAY COUNTS INCLUDE 234 BEDS AT THE [facility] Exam - Physical Exam Narrative exam: Lying in bed comfortably - Constitutional Vitals: Temp Pulse Resp BP Pulse Ox 97.5 F L 75 16 122/82 99 11/28/18 20:40 11/28/18 20:41 11/28/18 20:40 11/28/18 20:40 11/28/18 20:41 General appearance: Present: no acute distress, well-nourished - EENT Eyes: Present: PERRL ENT: hearing intact, clear oral mucosa - Neck Neck: Present: supple, normal ROM - Respiratory Respiratory effort: normal Respiratory: bilateral: CTA - Cardiovascular Heart rate: 65 Rhythm: regular Heart Sounds: Present: S1 & S2. Absent: rub, click - Extremities Extremities: pulses symmetrical, No edema Extremity abnormal: edema (2+ pedal edema) Peripheral Pulses: within normal limits - Abdominal General gastrointestinal: Present: soft, non-tender, non-distended, normal bowel sounds Female genitourinary: Present: normal - Rectal Rectal Exam: deferred - Integumentary Integumentary: Present: clear, warm, dry - Musculoskeletal Musculoskeletal: gait normal, strength equal bilaterally - Psychiatric Psychiatric: appropriate mood/affect, intact judgment & insight - Neurologic Neurologic: CNII-XII intact, moves all extremities - Allied Health Allied health notes reviewed: nursing, case management Results - Labs CBC & Chem 7: 11/28/18 11:53 11/28/18 11:54 Labs: Laboratory Last Values WBC 5.2 K/mm3 (4.5-11.0) 11/28/18 11:53 RBC 4.28 M/mm3 (3.65-5.03) 11/28/18 11:53 Hgb 13.2 gm/dl (10.1-14.3) 11/28/18 11:53 Hct 38.6 % (30.3-42.9) 11/28/18 11:53 MCV 90 fl (79-97) 11/28/18 11:53 MCH 31 pg (28-32) 11/28/18 11:53 MCHC 34 % (30-34) 11/28/18 11:53 RDW 13.4 % (13.2-15.2) 11/28/18 11:53 Plt Count 158 K/mm3 (140-440) 11/28/18 11:53 Lymph % (Auto) 36.6 % (13.4-35.0) H 11/28/18 11:53 Villalba % (Auto) 6.3 % (0.0-7.3) 11/28/18 11:53 Eos % (Auto) 4.2 % (0.0-4.3) 11/28/18 11:53 Baso % (Auto) 0.9 % (0.0-1.8) 11/28/18 11:53 Lymph # 1.9 K/mm3 (1.2-5.4) 11/28/18 11:53 Villalba # 0.3 K/mm3 (0.0-0.8) 11/28/18 11:53 Eos # 0.2 K/mm3 (0.0-0.4) 11/28/18 11:53 Baso # 0.0 K/mm3 (0.0-0.1) 11/28/18 11:53 Seg Neutrophils % 52.0 % (40.0-70.0) 11/28/18 11:53 Seg Neutrophils # 2.7 K/mm3 (1.8-7.7) 11/28/18 11:53 D-Dimer 275.50 ng/mlDDU (0-234) H 11/28/18 12:10 Sodium 140 mmol/L (137-145) 11/28/18 11:54 Potassium 4.1 mmol/L (3.6-5.0) 11/28/18 11:54 Chloride 97.4 mmol/L (98-107) L 11/28/18 11:54 Carbon Dioxide 29 mmol/L (22-30) 11/28/18 11:54 Anion Gap 18 mmol/L 11/28/18 11:54 BUN 17 mg/dL (7-17) 11/28/18 11:54 Creatinine 0.9 mg/dL (0.7-1.2) 11/28/18 11:54 Estimated GFR > 60 ml/min 11/28/18 11:54 BUN/Creatinine Ratio 19 % 11/28/18 11:54 Glucose 109 mg/dL (65-100) H 11/28/18 11:54 Calcium 9.2 mg/dL (8.4-10.2) 11/28/18 11:54 Troponin T < 0.010 ng/mL (0.00-0.029) 11/28/18 19:17 NT-Pro-B Natriuret Pep 242.9 pg/mL (0-450) 11/28/18 11:54 Valproic Acid 59.6 ug/mL (50-100) 11/28/18 12:27 - Imaging and Cardiology EKG: report reviewed (normal sinus rhythm heart rate of 65 per minute LVH by voltage criteria nonspecific T-wave abnormalities) Imaging and Cardiology: Venous duplex scan Lower extremities IMPRESSION: No evidence of deep venous thrombosis of the bilateral lower extremities. Chest x-ray IMPRESSION: Unremarkable AP chest. Assessment and Plan Advance Directives: Yes (full code) VTE prophylaxis?: Chemical Plan of care discussed with patient/family: Yes - Patient Problems (1) Acute exacerbation of CHF (congestive heart failure) Current Visit: Yes Status: Acute Qualifiers: Heart failure type: combined systolic and diastolic Qualified Code(s): I50.43 - Acute on chronic combined systolic (congestive) and diastolic (congestive) heart failure Plan to address problem: IV Lasix Daily weights Daily intake and output Echocardiogram for ejection fraction (2) Acute chest pain Current Visit: Yes Status: Acute Plan to address problem: Chest pain rule out [place] Chest pain protocol Serial troponins Lexiscan in the morning (3) Lower extremity edema Current Visit: Yes Status: Acute Plan to address problem: DVT ruled out Echocardiogram for pulmonary hypertension Lasix in the meantime (4) Seizure disorder Current Visit: Yes Status: Chronic Plan to address problem: Continue Keppra (5) Hypertension Current Visit: Yes Status: Chronic Qualifiers: Hypertension type: essential hypertension Qualified Code(s): I10 - Essential (primary) hypertension Plan to address problem: Continue antihypertensives (6) Asthma Current Visit: Yes Status: Chronic Qualifiers: Asthma persistence: unspecified Plan to address problem: Continue Singulair (7) Generalized anxiety disorder Current Visit: Yes Status: Chronic Plan to address problem: Continue clonazepam (8) Anemia Current Visit: Yes Status: Chronic Qualifiers: Anemia type: unspecified type Qualified Code(s): D64.9 - Anemia, unspecified Plan to address problem: Continue iron sulfate (9) DVT prophylaxis Current Visit: Yes Status: Acute Plan to address problem: Patient initiated on Lovenox and GI prophylaxis
[2018-11-29] MEDS: COREG PO SCH ×3 (00:34→22:21)
[2018-11-29] MEDS: K-DUR PO SCH ×2 (00:35→12:40)
[2018-11-29] MEDS: PERCOCET 5/325 PO PRN ×3 (00:35→16:57)
[2018-11-29] MEDS: CATAPRES PO SCH ×3 (00:36→16:53)
[2018-11-29] MEDS: LASIX IV SCH ×2 (06:54→18:14)
[2018-11-29 07:15] LABS: Basophils % (Auto) 0.5 % (0.0-1.8); Eosinophils # (Auto) 0.2 K/mm3 (0.0-0.4); Hematocrit 35.5 % (30.3-42.9); Hemoglobin 12.1 gm/dl (10.1-14.3); Lymphocytes # (Auto) 1.9 K/mm3 (1.2-5.4); Lymphocytes % (Auto) 37.9 % (13.4-35.0); Mean Corpuscular HGB Conc 34 % (30-34); Mean Corpuscular Volume 90 fl (79-97); Monocytes # (Auto) 0.4 K/mm3 (0.0-0.8); Platelet Count 149 K/mm3 (140-440); Red Blood Count 3.94 M/mm3 (3.65-5.03); Red Cell Distribution Width 13.4 % (13.2-15.2)
[2018-11-29 07:35] LABS: Alanine Aminotransferase 15 units/L (7-56); Albumin 3.6 g/dL (3.9-5); BUN/Creatinine Ratio 17; Blood Urea Nitrogen 17 mg/dL (7-17); Calcium 8.2 mg/dL (8.4-10.2); Hemolysis Index 44
--- NOTE | 2018-11-29 09:24 | Progress Note ---
Assessment and Plan Assessment and plan: Chest pain. Stress test tomorrow 11/30/18. Stress test done today because recent nuclear medicine test. XR knee Left knee pain Enthessophytes left knee Seizure disorder Cont Keppra hypertension Monitoer BP Cardiomyopathy, Cardiology following Full code status For stress test tomorrow. History Interval history: Chest pain left knee pain Hospitalist Physical - Physical exam Narrative exam: GEN: Not in acute distress, lying in bed, obese HEENT: Normocephalic, atraumatic, Neck: supple, No JVD heart: S1 and S2 reg, no murmurs, rubs or gallop Lungs: Decreased breath sounds bilaterally, rhonchi bilateral, wheeze Abd:soft, non tender, non distended, normal bowel sounds Ext: No edema,no clubbing, no cyanosis, tender left knee Neuro:Awake,alert,oriented X 3, no focal signs, moves all ext Psych: normal mood - Constitutional Vitals: Temp Pulse Resp BP Pulse Ox 98.1 F 71 18 113/72 95 11/29/18 07:54 11/29/18 07:54 11/29/18 07:54 11/29/18 07:54 11/29/18 07:54 General appearance: Present: no acute distress Results - Labs CBC & Chem 7: 11/29/18 06:51 11/29/18 06:51 Labs: Laboratory Last Values WBC 5.1 K/mm3 (4.5-11.0) 11/29/18 06:51 RBC 3.94 M/mm3 (3.65-5.03) 11/29/18 06:51 Hgb 12.1 gm/dl (10.1-14.3) 11/29/18 06:51 Hct 35.5 % (30.3-42.9) 11/29/18 06:51 MCV 90 fl (79-97) 11/29/18 06:51 MCH 31 pg (28-32) 11/29/18 06:51 MCHC 34 % (30-34) 11/29/18 06:51 RDW 13.4 % (13.2-15.2) 11/29/18 06:51 Plt Count 149 K/mm3 (140-440) 11/29/18 06:51 Lymph % (Auto) 37.9 % (13.4-35.0) H 11/29/18 06:51 Faulk % (Auto) 7.0 % (0.0-7.3) 11/29/18 06:51 Eos % (Auto) 4.0 % (0.0-4.3) 11/29/18 06:51 Baso % (Auto) 0.5 % (0.0-1.8) 11/29/18 06:51 Lymph # 1.9 K/mm3 (1.2-5.4) 11/29/18 06:51 Faulk # 0.4 K/mm3 (0.0-0.8) 11/29/18 06:51 Eos # 0.2 K/mm3 (0.0-0.4) 11/29/18 06:51 Baso # 0.0 K/mm3 (0.0-0.1) 11/29/18 06:51 Seg Neutrophils % 50.6 % (40.0-70.0) 11/29/18 06:51 Seg Neutrophils # 2.6 K/mm3 (1.8-7.7) 11/29/18 06:51 D-Dimer 275.50 ng/mlDDU (0-234) H 11/28/18 12:10 Sodium 137 mmol/L (137-145) 11/29/18 06:51 Potassium 3.7 mmol/L (3.6-5.0) 11/29/18 06:51 Chloride 96.5 mmol/L (98-107) L 11/29/18 06:51 Carbon Dioxide 30 mmol/L (22-30) 11/29/18 06:51 Anion Gap 14 mmol/L 11/29/18 06:51 BUN 17 mg/dL (7-17) 11/29/18 06:51 Creatinine 1.0 mg/dL (0.7-1.2) 11/29/18 06:51 Estimated GFR > 60 ml/min 11/29/18 06:51 BUN/Creatinine Ratio 17 % 11/29/18 06:51 Glucose 117 mg/dL (65-100) H 11/29/18 06:51 Hemoglobin A1c 5.8 % (4-6) 11/28/18 23:47 Calcium 8.2 mg/dL (8.4-10.2) L 11/29/18 06:51 Total Bilirubin 0.50 mg/dL (0.1-1.2) 11/29/18 06:51 AST 18 units/L (5-40) 11/29/18 06:51 ALT 15 units/L (7-56) 11/29/18 06:51 Alkaline Phosphatase 50 units/L (35-129) 11/29/18 06:51 Troponin T < 0.010 ng/mL (0.00-0.029) 11/29/18 06:51 NT-Pro-B Natriuret Pep 242.9 pg/mL (0-450) 11/28/18 11:54 Total Protein 6.2 g/dL (6.3-8.2) L 11/29/18 06:51 Albumin 3.6 g/dL (3.9-5) L 11/29/18 06:51 Albumin/Globulin Ratio 1.4 % 11/29/18 06:51 Valproic Acid 59.6 ug/mL (50-100) 11/28/18 12:27 Active Medications - Current Medications Current Medications: Generic Name Dose Route Start Last Admin Trade Name Freq PRN Reason Stop Dose Admin Acetaminophen 650 mg 11/28/18 23:00 Tylenol PO Q4H PRN Pain MILD(1-3)/Fever >100.5/MEZA Albuterol 2.5 mg 11/28/18 23:04 Proventil IH Q4HRT PRN Shortness Of Breath Aspirin 81 mg 11/29/18 10:00 Halfprin Ec PO QDAY MARYA Carvedilol 6.25 mg 11/28/18 23:00 11/29/18 00:34 Coreg PO 6.25 mg BID MARYA Administration Clonazepam 0.5 mg 11/28/18 23:00 11/29/18 00:35 Klonopin PO 0.5 mg BID MARYA Administration Clonidine HCl 0.2 mg 11/28/18 23:00 11/29/18 00:36 Catapres PO 0.2 mg BID@0800,1700 MARYA Administration Diphenhydramine HCl 25 mg 11/28/18 18:10 11/28/18 18:39 Benadryl IV 25 mg Q6H PRN Administration Itching Divalproex Sodium 1,000 mg 11/29/18 08:[address] PO TID MARYA Doxazosin Mesylate 2 mg 11/29/18 22:00 Cardura PO QHS [facility] Famotidine 20 mg 11/29/18 10:00 Pepcid PO BID [facility] Ferrous Sulfate 325 mg 11/29/18 10:00 Feosol PO QDAY [facility] Fluoxetine HCl 20 mg 11/29/18 10:00 Prozac PO DAILY [facility] Furosemide 40 mg 11/29/18 06:00 11/29/18 06:54 Lasix IV 40 mg 0600,1800 [facility] Administration Hydralazine HCl 25 mg 11/29/18 08:00 Apresoline PO TID [facility] Hydromorphone HCl 0.5 mg 11/28/18 23:00 Dilaudid IV Q3H PRN Pain , Severe (7-10) Levetiracetam 500 mg 11/29/18 08:00 Keppra PO TID [facility] Losartan Potassium 100 mg 11/29/18 10:00 Cozaar PO QDAY [facility] Miscellaneous Medication 1 each 11/29/18 10:00 Losartan/Hydrochlorothiazide [Losartan-Hctz 100-25 Mg Tab] PO DAILY [facility] Montelukast Sodium 10 mg 11/29/18 18:00 Singulair PO QPM [facility] Nifedipine 90 mg 11/29/18 10:00 Procardia Xl PO DAILY [facility] Ondansetron HCl 4 mg 11/28/18 23:00 Zofran IV Q8H PRN Nausea And Vomiting Oxycodone/Acetaminophen 1 tab 11/28/18 23:00 11/29/18 00:35 Percocet 5/325 PO 1 tab Q6H PRN Administration Pain, Moderate (4-6) Potassium Chloride 10 meq 11/29/18 00:00 11/29/18 00:35 K-Dur PO 10 meq Q12H [facility] Administration Sodium Chloride 10 ml 11/29/18 10:00 Sodium Chloride Flush Syringe 10 Ml IV BID MARYA Sodium Chloride 10 ml 11/28/18 23:00 11/29/18 06:54 Sodium Chloride Flush Syringe 10 Ml IV 10 ml PRN PRN Administration LINE FLUSH Spironolactone 50 mg 11/29/18 10:00 Aldactone PO QDAY [facility]
[2018-11-29] MEDS ORDERED: ATENOLOL PO SCH (10:00)
[2018-11-29] MEDS ORDERED: NON-FORMULARY (Losartan/Hydrochlorothiazide [Losartan-Hctz 100-25 Mg Tab] 1 EACH) PO SCH (10:00)
[2018-11-29] MEDS ORDERED: LASIX PO SCH (10:00)
[2018-11-29] MEDS ORDERED: CHLORTHALIDONE PO SCH (10:00)
[2018-11-29] MEDS ORDERED: K-DUR PO SCH (10:00)
[2018-11-29] MEDS: COZAAR PO SCH (10:13)
[2018-11-29] MEDS: FEOSOL PO SCH (10:13)
[2018-11-29] MEDS: KEPPRA PO SCH ×3 (10:14→22:15)
[2018-11-29] MEDS: HALFPRIN EC PO SCH (10:17)
[2018-11-29] MEDS: PEPCID PO SCH ×2 (10:17→22:15)
[2018-11-29] MEDS: APRESOLINE PO SCH ×3 (10:17→22:17)
[2018-11-29] MEDS: PROCARDIA XL PO SCH (10:17)
[2018-11-29] MEDS: ALDACTONE PO SCH (10:17)
[2018-11-29] MEDS: PROzac PO SCH (10:17)
[2018-11-29] MEDS: SODIUM CHLORIDE FLUSH SYRINGE 10 ML IV SCH ×2 (10:18→22:16)
--- NOTE | 2018-11-29 10:19 | XRay Report ---
LEFT KNEE, 3 views: History: Left knee pain. The bony architecture is intact without evidence of fracture or dislocation. There is a moderate size enthesophyte projecting from the superior patella. No significant soft tissue abnormality is seen. IMPRESSION: Enthesophyte from the superior patella. Otherwise, unremarkable left knee films.
--- NOTE | 2018-11-29 12:15 | Consultation ---
History of Present Illness Consult date: 11/29/18 Consult reason: chest pain History of present illness: Patient is a 48 year old woman with difficult to control hypertension and dilated nonischemic cardiomyopathy. In 2014 she had a thallium stress test that reports no ischemia but a decrease left ventricular ejection fraction. Her latest echocardiogram documents an improved left ventricular ejection fraction 45%. Patient presented with atypical chest pain. Patient reports pain woke her from sleep, associated with palpitations and shortness of breath. Ventilation scan reports a low probability for pulmonary embolism. Cardiac enzymes are normal. An ECG shows sinus rhythm, LVH with repolarization abnormalities. Medications and Allergies Allergies Allergy/AdvReac Type Severity Reaction Status Date / Time Iodinated Contrast- Oral and Allergy Rash Verified 11/14/15 22:10 IV Dye [Iodinated Contrast Media - IV Dye] lisinopril Allergy Swelling Verified 11/14/15 22:10 morphine Allergy Rash Verified 11/14/15 22:10 Home Medications Medication Instructions Recorded Confirmed Last Taken Type Carvedilol [Coreg] 6.25 mg PO BID 09/19/17 11/28/18 09/19/17 History Divalproex Sodium [Depakote] 1,000 mg PO TID 09/19/17 11/28/18 Unknown History levETIRAcetam [Keppra] 500 mg PO TID 09/19/17 11/28/18 09/19/17 History FLUoxetine HCL [FLUoxetine] 20 mg PO DAILY 04/19/18 11/28/18 Unknown History cloNIDine [Catapres] 0.2 mg PO BID #60 tablet 04/20/18 11/28/18 Unknown Rx ALBUTEROL Inhaler (OR & NICU) 2 puff IH Q4HR PRN #1 inhalation 07/31/18 11/28/18 Unknown Rx [ProAir HFA Inhaler] Aspirin [Adult Aspirin] 81 mg PO QDAY 07/31/18 11/28/18 Unknown History Atenolol/Chlorthalidone 1 each PO QDAY 07/31/18 11/28/18 Unknown History [Atenolol-Chlorthalidone 100-25] Furosemide [Lasix] 20 mg PO DAILY 07/31/18 11/28/18 Unknown History Potassium Chloride [K-Dur] 20 meq PO QDAY 07/31/18 11/28/18 Unknown History Spironolactone [Aldactone] 50 mg PO QDAY 07/31/18 11/28/18 Unknown History hydrALAZINE [Apresoline] 25 mg PO TID 07/31/18 11/28/18 Unknown History Doxazosin Mesylate [Cardura] 2 mg PO DAILY 11/28/18 11/28/18 Unknown History Ferrous Sulfate [Feosol] 325 mg PO QDAY 11/28/18 11/28/18 Unknown History Losartan/Hydrochlorothiazide 1 each PO DAILY 11/28/18 11/28/18 Unknown History [Losartan-Hctz 100-25 mg Tab] Montelukast [Singulair] 10 mg PO QPM 11/28/18 11/28/18 Unknown History NIFEdipine [Nifedipine ER] 90 mg PO DAILY 11/28/18 11/28/18 Unknown History clonazePAM [Clonazepam] 0.5 mg PO BID 11/28/18 11/28/18 Unknown History Active Meds: Active Medications Acetaminophen (Tylenol) 650 mg PO Q4H PRN PRN Reason: Pain MILD(1-3)/Fever >100.5/MEZA Albuterol (Proventil) 2.5 mg IH Q4HRT PRN PRN Reason: Shortness Of Breath Aspirin (Halfprin Ec) 81 mg PO QDAY [facility] Last Admin: 11/29/18 10:17 Dose: 81 mg Documented by: Carvedilol (Coreg) 6.25 mg PO BID [facility] Last Admin: 11/29/18 10:14 Dose: 6.25 mg Documented by: Clonazepam (Klonopin) 0.5 mg PO BID [facility] Last Admin: 11/29/18 10:13 Dose: 0.5 mg Documented by: Clonidine HCl (Catapres) 0.2 mg PO BID@0800,1700 [facility] Last Admin: 11/29/18 10:14 Dose: 0.2 mg Documented by: Diphenhydramine HCl (Benadryl) 25 mg IV Q6H PRN PRN Reason: Itching Last Admin: 11/28/18 18:39 Dose: 25 mg Documented by: Divalproex Sodium (Depakote Dr) 1,000 mg PO TID [facility] Last Admin: 11/29/18 10:17 Dose: 1,000 mg Documented by: Doxazosin Mesylate (Cardura) 2 mg PO QHS [facility] Famotidine (Pepcid) 20 mg PO BID [facility] Last Admin: 11/29/18 10:17 Dose: 20 mg Documented by: Ferrous Sulfate (Feosol) 325 mg PO QDAY [facility] Last Admin: 11/29/18 10:13 Dose: 325 mg Documented by: Fluoxetine HCl (Prozac) 20 mg PO DAILY [facility] Last Admin: 11/29/18 10:17 Dose: 20 mg Documented by: Furosemide (Lasix) 40 mg IV 0600,1800 [facility] Last Admin: 11/29/18 06:54 Dose: 40 mg Documented by: Hydralazine HCl (Apresoline) 25 mg PO TID [facility] Last Admin: 11/29/18 10:17 Dose: 25 mg Documented by: Hydromorphone HCl (Dilaudid) 0.5 mg IV Q3H PRN PRN Reason: Pain , Severe (7-10) Levetiracetam (Keppra) 500 mg PO TID [facility] Last Admin: 11/29/18 10:14 Dose: 500 mg Documented by: Losartan Potassium (Cozaar) 100 mg PO QDAY [facility] Last Admin: 11/29/18 10:13 Dose: 100 mg Documented by: Miscellaneous Medication (Losartan/Hydrochlorothiazide [Losartan-Hctz 100-25 Mg Tab]) 1 each PO DAILY [facility] Montelukast Sodium (Singulair) 10 mg PO QPM [facility] Nifedipine (Procardia Xl) 90 mg PO DAILY [facility] Last Admin: 11/29/18 10:17 Dose: 90 mg Documented by: Ondansetron HCl (Zofran) 4 mg IV Q8H PRN PRN Reason: Nausea And Vomiting Oxycodone/Acetaminophen (Percocet 5/325) 1 tab PO Q6H PRN PRN Reason: Pain, Moderate (4-6) Last Admin: 11/29/18 10:16 Dose: 1 tab Documented by: Potassium Chloride (K-Dur) 10 meq PO Q12H [facility] Last Admin: 11/29/18 00:35 Dose: 10 meq Documented by: Sodium Chloride (Sodium Chloride Flush Syringe 10 Ml) 10 ml IV BID [facility] Last Admin: 11/29/18 10:18 Dose: 10 ml Documented by: Sodium Chloride (Sodium Chloride Flush Syringe 10 Ml) 10 ml IV PRN PRN PRN Reason: LINE FLUSH Last Admin: 11/29/18 06:54 Dose: 10 ml Documented by: Spironolactone (Aldactone) 50 mg PO QDAY MARYA Last Admin: 11/29/18 10:17 Dose: 50 mg Documented by: Physical Examination Vital Signs Temp Pulse Resp BP Pulse Ox 97.1 F L 71 17 182/117 95 11/28/18 11:22 11/28/18 11:22 11/28/18 11:22 11/28/18 11:22 11/28/18 11:22 General appearance: no acute distress HEENT: Positive: PERRL Neck: Positive: trachea midline Cardiac: Positive: Reg Rate and Rhythm Lungs: Positive: Decreased Breath Sounds Neuro: Positive: Grossly Intact Extremities: Present: edema Results 11/29/18 06:51 11/29/18 06:51 Cardiac Enzymes 11/29/18 Range/Units 06:51 AST 18 (5-40) units/L CBC 11/28/18 11/29/18 Range/Units 11:53 06:51 WBC 5.2 5.1 (4.5-11.0) K/mm3 RBC 4.28 3.94 (3.65-5.03) M/mm3 Hgb 13.2 12.1 (10.1-14.3) gm/dl Hct 38.6 35.5 (30.3-42.9) % Plt Count 158 149 (140-440) K/mm3 Lymph # 1.9 1.9 (1.2-5.4) K/mm3 [place] # 0.3 0.4 (0.0-0.8) K/mm3 Eos # 0.2 0.2 (0.0-0.4) K/mm3 Baso # 0.0 0.0 (0.0-0.1) K/mm3 Comprehensive Metabolic Panel 11/28/18 11/29/18 Range/Units 11:54 06:51 Sodium 140 137 (137-145) mmol/L Potassium 4.1 3.7 (3.6-5.0) mmol/L Chloride 97.4 L 96.5 L (98-107) mmol/L Carbon Dioxide 29 30 (22-30) mmol/L BUN 17 17 (7-17) mg/dL Creatinine 0.9 1.0 (0.7-1.2) mg/dL Glucose 109 H 117 H (65-100) mg/dL Calcium 9.2 8.2 L (8.4-10.2) mg/dL AST 18 (5-40) units/L ALT 15 (7-56) units/L Alkaline Phosphatase 50 (35-129) units/L Total Protein 6.2 L (6.3-8.2) g/dL Albumin 3.6 L (3.9-5) g/dL Assessment and Plan Chest pain low probability for PE on V/Q scan Nonischemic cardiomyopathy EF improved to 45% Hypertension Patient is planned to have a thallium stress test tomorrow morning.
[2018-11-29] MEDS: HCTZ PO SCH (16:52)
[2018-11-29] MEDS: SINGULAIR PO SCH (18:22)
[2018-11-29] MEDS: ZOFRAN IV PRN (22:16)
[2018-11-29] MEDS: CARDURA PO SCH (22:20)
[2018-11-30] MEDS: K-DUR PO SCH ×3 (00:58→23:25)
[2018-11-30] MEDS: LASIX IV SCH ×2 (06:15→19:46)
[2018-11-30] MEDS: CATAPRES PO SCH ×2 (08:31→19:46)
[2018-11-30] MEDS: KEPPRA PO SCH ×2 (08:31→14:34)
[2018-11-30] MEDS: APRESOLINE PO SCH ×3 (08:31→23:27)
[2018-11-30] MEDS ORDERED: XYLOCAINE 1% 20 mL ONE (10:22)
[2018-11-30] MEDS ORDERED: LEXISCAN IV ONE (11:56)
[2018-11-30] MEDS: PERCOCET 5/325 PO PRN (14:13)
[2018-11-30] MEDS: ZOFRAN IV PRN (14:13)
[2018-11-30] MEDS: SODIUM CHLORIDE FLUSH SYRINGE 10 ML IV SCH ×2 (14:14→23:26)
[2018-11-30] MEDS: FEOSOL PO SCH (14:34)
[2018-11-30] MEDS: PEPCID PO SCH ×2 (14:34→23:43)
[2018-11-30] MEDS: PROzac PO SCH (14:34)
[2018-11-30] MEDS: HALFPRIN EC PO SCH (14:35)
[2018-11-30] MEDS: ALDACTONE PO SCH (14:35)
--- NOTE | 2018-11-30 15:56 | Discharge Summary ---
Providers - Providers Date of Admission: 11/28/18 15:29 Date of discharge: 11/30/18 Attending physician: TONI ZAMORA 11/29/18 08:01 Consult to Physician [CONS] Routine Comment: Consulting Provider: LINDSEY GALLO Physician Instructions: Reason For Exam: Chest pain, Cardiomyopathy, CHF Primary care physician: [facility] MD JOHNY Hospitalization Condition: Fair Disposition: -01 TO HOME OR SELFCARE Exam - Constitutional Vitals: Temp Pulse Resp BP Pulse Ox 98.3 F 90 20 123/77 93 11/30/18 07:31 11/30/18 07:31 11/30/18 07:31 11/30/18 12:27 11/30/18 07:31 Plan Activity: advance as tolerated Diet: low fat, low cholesterol, low salt Additional Instructions: 1.Follow up with PCP or [facility] in 1 week [facility]-5 [facility] Prescriptions: Aspirin [Adult Aspirin] 81 mg PO QDAY #30 tablet. hydrALAZINE [Apresoline TAB] 25 mg PO TID #90 tablet clonazePAM [Clonazepam] 0.5 mg PO BID #20 tablet Carvedilol [Coreg] 6.25 mg PO BID #60 tablet Losartan [Cozaar] 100 mg PO QDAY #30 tablet Divalproex [Depakote Dr] 1,000 mg PO TID #90 tablet levETIRAcetam [Keppra TAB] 1,000 mg PO BID #60 tab NIFEdipine [Nifedipine ER] 90 mg PO DAILY #30 tablet.er Famotidine [Pepcid] 20 mg PO BID #60 tablet Montelukast [Singulair] 10 mg PO QPM #30 tablet Lacosamide [Vimpat] 200 mg PO Q12HR #60 tablet
--- NOTE | 2018-11-30 17:26 | Progress Note ---
Assessment and Plan Assessment and plan: Breakthrough seizures Give Keppra 500mg iv x 1, since she just got 500mg few hrs ago Ativan iv prn seizures Chest pain. Stress test done today 11/30/18 report pending XR knee Left knee pain Enthessophytes left knee Seizure disorder Cont Keppra Hypertension Monitor BP Cardiomyopathy, Cardiology following Full code status Stress test done report pending History Interval history: Chest pain left knee pain Stress test done report pending called by Nurse patient had seizures Hospitalist Physical - Physical exam Narrative exam: GEN: Not in acute distress, lying in bed, obese HEENT: Normocephalic, atraumatic, Neck: supple, No JVD heart: S1 and S2 reg, no murmurs, rubs or gallop Lungs: Decreased breath sounds bilaterally, rhonchi bilateral, wheeze Abd:soft, non tender, non distended, normal bowel sounds Ext: No edema,no clubbing, no cyanosis, tender left knee Neuro: Sedated, post ictal - Constitutional Vitals: Temp Pulse Resp BP Pulse Ox 97.6 F 86 18 123/81 97 11/30/18 16:21 11/30/18 14:23 11/30/18 16:21 11/30/18 16:21 11/30/18 14:23 General appearance: Present: no acute distress Results - Labs CBC & Chem 7: 11/29/18 06:51 11/29/18 06:51 Labs: Laboratory Last Values WBC 5.1 K/mm3 (4.5-11.0) 11/29/18 06:51 RBC 3.94 M/mm3 (3.65-5.03) 11/29/18 06:51 Hgb 12.1 gm/dl (10.1-14.3) 11/29/18 06:51 Hct 35.5 % (30.3-42.9) 11/29/18 06:51 MCV 90 fl (79-97) 11/29/18 06:51 MCH 31 pg (28-32) 11/29/18 06:51 MCHC 34 % (30-34) 11/29/18 06:51 RDW 13.4 % (13.2-15.2) 11/29/18 06:51 Plt Count 149 K/mm3 (140-440) 11/29/18 06:51 Lymph % (Auto) 37.9 % (13.4-35.0) H 11/29/18 06:51 [place] % (Auto) 7.0 % (0.0-7.3) 11/29/18 06:51 Eos % (Auto) 4.0 % (0.0-4.3) 11/29/18 06:51 Baso % (Auto) 0.5 % (0.0-1.8) 11/29/18 06:51 Lymph # 1.9 K/mm3 (1.2-5.4) 11/29/18 06:51 [place] # 0.4 K/mm3 (0.0-0.8) 11/29/18 06:51 Eos # 0.2 K/mm3 (0.0-0.4) 11/29/18 06:51 Baso # 0.0 K/mm3 (0.0-0.1) 11/29/18 06:51 Seg Neutrophils % 50.6 % (40.0-70.0) 11/29/18 06:51 Seg Neutrophils # 2.6 K/mm3 (1.8-7.7) 11/29/18 06:51 D-Dimer 275.50 ng/mlDDU (0-234) H 11/28/18 12:10 Sodium 137 mmol/L (137-145) 11/29/18 06:51 Potassium 3.7 mmol/L (3.6-5.0) 11/29/18 06:51 Chloride 96.5 mmol/L (98-107) L 11/29/18 06:51 Carbon Dioxide 30 mmol/L (22-30) 11/29/18 06:51 Anion Gap 14 mmol/L 11/29/18 06:51 BUN 17 mg/dL (7-17) 11/29/18 06:51 Creatinine 1.0 mg/dL (0.7-1.2) 11/29/18 06:51 Estimated GFR > 60 ml/min 11/29/18 06:51 BUN/Creatinine Ratio 17 % 11/29/18 06:51 Glucose 117 mg/dL (65-100) H 11/29/18 06:51 Hemoglobin A1c 5.8 % (4-6) 11/28/18 23:47 Calcium 8.2 mg/dL (8.4-10.2) L 11/29/18 06:51 Total Bilirubin 0.50 mg/dL (0.1-1.2) 11/29/18 06:51 AST 18 units/L (5-40) 11/29/18 06:51 ALT 15 units/L (7-56) 11/29/18 06:51 Alkaline Phosphatase 50 units/L (35-129) 11/29/18 06:51 Troponin T < 0.010 ng/mL (0.00-0.029) 11/29/18 06:51 NT-Pro-B Natriuret Pep 242.9 pg/mL (0-450) 11/28/18 11:54 Total Protein 6.2 g/dL (6.3-8.2) L 11/29/18 06:51 Albumin 3.6 g/dL (3.9-5) L 11/29/18 06:51 Albumin/Globulin Ratio 1.4 % 11/29/18 06:51 Valproic Acid 59.6 ug/mL (50-100) 11/28/18 12:27 Active Medications - Current Medications Current Medications: Generic Name Dose Route Start Last Admin Trade Name Freq PRN Reason Stop Dose Admin Acetaminophen 650 mg 11/28/18 23:00 Tylenol PO Q4H PRN Pain MILD(1-3)/Fever >100.5/MEZA Albuterol 2.5 mg 11/28/18 23:04 Proventil IH Q4HRT PRN Shortness Of Breath Aspirin 81 mg 11/29/18 10:00 11/30/18 14:35 Halfprin Ec PO 81 mg QDAY MARYA Administration Carvedilol 6.25 mg 11/28/18 23:00 11/29/18 22:21 Coreg PO Not Given BID MARYA Clonazepam 0.5 mg 11/28/18 23:00 11/29/18 22:15 Klonopin PO 0.5 mg BID MARYA Administration Clonidine HCl 0.2 mg 11/28/18 23:00 11/30/18 08:31 Catapres PO Not Given BID@0800,1700 MARYA Diphenhydramine HCl 25 mg 11/28/18 18:10 11/28/18 18:39 Benadryl IV 25 mg Q6H PRN Administration Itching Divalproex Sodium 1,000 mg 11/29/18 08:00 11/30/18 08:[address] PO Not Given TID COUNT INCLUDES THE [facility] Doxazosin Mesylate 2 mg 11/29/18 22:00 11/29/18 22:20 Cardura PO Not Given QHS COUNT INCLUDES THE [facility] Famotidine 20 mg 11/29/18 10:00 11/30/18 14:34 Pepcid PO 20 mg BID MARYA Administration Ferrous Sulfate 325 mg 11/29/18 10:00 11/30/18 14:34 Feosol PO 325 mg QDAY MARYA Administration Fluoxetine HCl 20 mg 11/29/18 10:00 11/30/18 14:34 Prozac PO 20 mg DAILY MARYA Administration Furosemide 40 mg 11/29/18 06:00 11/30/18 06:15 Lasix IV Not Given 0600,1800 COUNT INCLUDES THE [facility] Hydralazine HCl 25 mg 11/29/18 08:00 11/30/18 08:31 Apresoline PO Not Given TID COUNT INCLUDES THE [facility] Hydrochlorothiazide 25 mg 11/29/18 13:00 11/29/18 16:52 Hctz PO Not Given QDAY COUNT INCLUDES THE [facility] Hydromorphone HCl 0.5 mg 11/28/18 23:00 Dilaudid IV Q3H PRN Pain , Severe (7-10) Levetiracetam 500 mg 11/29/18 08:00 11/30/18 14:34 Keppra PO 500 mg TID COUNT INCLUDES THE [facility] Administration Losartan Potassium 100 mg 11/29/18 10:00 11/29/18 10:13 Cozaar PO 100 mg QDAY COUNT INCLUDES THE [facility] Administration Montelukast Sodium 10 mg 11/29/18 18:00 11/29/18 18:22 Singulair PO 10 mg QPM MARYA Administration Nifedipine 90 mg 11/29/18 10:00 11/29/18 10:17 Procardia Xl PO 90 mg DAILY MARYA Administration Ondansetron HCl 4 mg 11/28/18 23:00 11/30/18 14:13 Zofran IV 4 mg Q8H PRN Administration Nausea And Vomiting Oxycodone/Acetaminophen 1 tab 11/28/18 23:00 11/30/18 14:13 Percocet 5/325 PO 1 tab Q6H PRN Administration Pain, Moderate (4-6) Potassium Chloride 10 meq 11/29/18 00:00 11/30/18 14:35 K-Dur PO 10 meq Q12H MARYA Administration Sodium Chloride 10 ml 11/29/18 10:00 11/30/18 14:14 Sodium Chloride Flush Syringe 10 Ml IV 10 ml BID MARYA Administration Sodium Chloride 10 ml 11/28/18 23:00 11/29/18 06:54 Sodium Chloride Flush Syringe 10 Ml IV 10 ml PRN PRN Administration LINE FLUSH Spironolactone 50 mg 11/29/18 10:00 11/30/18 14:35 Aldactone PO 50 mg QDAY MARYA Administration
[2018-11-30] MEDS ORDERED: ATIVAN IV STA (17:33)
[2018-11-30] MEDS ORDERED: KEPPRA 500 MG/NS 0.82% 100 ML 500 MG/100 ML BAG IV ONE ×2 (18:00→18:30)
--- NOTE | 2018-11-30 18:14 | Event Note ---
Date: 11/30/18 Called by Nurse that patient had seizures. Ativan ordered, given. I went and evaluated. she is sedated, no seizures currently. vitals stable. Cancel intended discharge. patient had more seizures. Transfer to ICU.
[2018-11-30] MEDS: ATIVAN IV PRN ×3 (18:16→20:20)
[2018-11-30] MEDS ORDERED: KEPPRA IV ONE (19:00)
[2018-11-30] MEDS ORDERED: NACL 0.9% IV ONE (19:00)
[2018-11-30] MEDS: COZAAR PO SCH (19:44)
[2018-11-30] MEDS: COREG PO SCH ×2 (19:44→23:25)
[2018-11-30] MEDS: HCTZ PO SCH (19:44)
[2018-11-30] MEDS: PROCARDIA XL PO SCH (19:45)
[2018-11-30] MEDS: SINGULAIR PO SCH (19:47)
--- NOTE | 2018-11-30 20:42 | Treadmill Report ---
THALLIUM STRESS TEST LEFT VENTRICLE: Left ventricular chamber size is at the upper limits of normal. Perfusion study demonstrates fairly homogeneous uptake of the tracer in all segments, no significant defects identified. Gated analysis suggests [id number] left ventricular systolic dysfunction with ejection fraction calculated at 39%. CONCLUSION: No demonstrable ischemia on thallium perfusion imaging, recommend clinical correlation and echocardiographic reassessment of left ventricular systolic function. [facility]# [id number] [place]/NTS
[2018-11-30] MEDS: DepaCON 1,000 MG in NACL 0.9% 100 ML IV SCH (20:51)
--- NOTE | 2018-11-30 20:56 | Event Note ---
Date: 11/30/18 Lexiscan thallium stress test done today was no ischemia on perfusion imaging. The ventricle ejection fraction was topically to 39%. Medical therapy is recommended including afterload agents and optimal blood pressure control.
[2018-11-30] MEDS: VIMPAT 200 MG in NACL 0.9% 100 ML IV SCH (23:25)
[2018-11-30] MEDS: CARDURA PO SCH (23:43)
[2018-12-01 05:32] LABS: Hematocrit 38.2 % (30.3-42.9); Hemoglobin 12.9 gm/dl (10.1-14.3); Mean Corpuscular HGB Conc 34 % (30-34); Mean Corpuscular Volume 91 fl (79-97); Red Blood Count 4.19 M/mm3 (3.65-5.03); Red Cell Distribution Width 13.5 % (13.2-15.2)
[2018-12-01 05:43] LABS: Platelet Count 139 K/mm3 (140-440)
[2018-12-01] MEDS: DepaCON 1,000 MG in NACL 0.9% 100 ML IV SCH ×3 (05:58→23:09)
[2018-12-01] MEDS: KEPPRA 1,000 MG/NS 0.75% 100ML 1,000 MG/100 ML BAG IV SCH ×3 (05:58→22:21)
[2018-12-01 06:00] LABS: BUN/Creatinine Ratio 16; Blood Urea Nitrogen 16 mg/dL (7-17); Calcium 8.3 mg/dL (8.4-10.2); Hemolysis Index 43
[2018-12-01] MEDS: ATIVAN IV PRN (07:58)
--- NOTE | 2018-12-01 09:36 | Progress Note ---
Assessment and Plan Assessment and plan: Breakthrough seizures Continue Keppra 100Omg iv bid Cont Deopacon 1000mg iv tid Ativan iv prn seizures Neurology consulted Seizure precautions Chest pain, non cardiac due to GERD Stress test neg XR knee Left knee pain Enthessophytes left knee Seizure disorder Hypertension Monitor BP Cardiomyopathy, Cardiology following Full code status History Interval history: Patient initially admitted for chest pain stress test is negative, However repeated seizures yesterday therefore transferred to [facility] Two seizures this morning Hospitalist Physical - Physical exam Narrative exam: GEN: Not in acute distress, lying in bed, obese HEENT: Normocephalic, atraumatic, Neck: supple, No JVD heart: S1 and S2 reg, no murmurs, rubs or gallop Lungs: Decreased breath sounds bilaterally, rhonchi bilateral, wheeze Abd:soft, non tender, non distended, normal bowel sounds Ext: No edema,no clubbing, no cyanosis, tender left knee Neuro: Sedated, post ictal Psych:cannot evaluate - Constitutional Vitals: Temp Pulse Resp BP Pulse Ox 98 F 88 17 102/72 95 12/01/18 04:00 12/01/18 06:30 12/01/18 06:30 12/01/18 06:30 12/01/18 06:30 General appearance: Present: no acute distress Results - Labs CBC & Chem 7: 12/01/18 04:49 12/01/18 04:49 Labs: Laboratory Last Values WBC 5.9 K/mm3 (4.5-11.0) 12/01/18 04:49 RBC 4.19 M/mm3 (3.65-5.03) 12/01/18 04:49 Hgb 12.9 gm/dl (10.1-14.3) 12/01/18 04:49 Hct 38.2 % (30.3-42.9) 12/01/18 04:49 MCV 91 fl (79-97) 12/01/18 04:49 MCH 31 pg (28-32) 12/01/18 04:49 MCHC 34 % (30-34) 12/01/18 04:49 RDW 13.5 % (13.2-15.2) 12/01/18 04:49 Plt Count 139 K/mm3 (140-440) L 12/01/18 04:49 Lymph % (Auto) 37.9 % (13.4-35.0) H 11/29/18 06:51 [place] % (Auto) 7.0 % (0.0-7.3) 11/29/18 06:51 Eos % (Auto) 4.0 % (0.0-4.3) 11/29/18 06:51 Baso % (Auto) 0.5 % (0.0-1.8) 11/29/18 06:51 Lymph # 1.9 K/mm3 (1.2-5.4) 11/29/18 06:51 [place] # 0.4 K/mm3 (0.0-0.8) 11/29/18 06:51 Eos # 0.2 K/mm3 (0.0-0.4) 11/29/18 06:51 Baso # 0.0 K/mm3 (0.0-0.1) 11/29/18 06:51 Seg Neutrophils % 50.6 % (40.0-70.0) 11/29/18 06:51 Seg Neutrophils # 2.6 K/mm3 (1.8-7.7) 11/29/18 06:51 D-Dimer 275.50 ng/mlDDU (0-234) H 11/28/18 12:10 Sodium 141 mmol/L (137-145) 12/01/18 04:49 Potassium 4.1 mmol/L (3.6-5.0) 12/01/18 04:49 Chloride 98.3 mmol/L (98-107) 12/01/18 04:49 Carbon Dioxide 29 mmol/L (22-30) 12/01/18 04:49 Anion Gap 18 mmol/L 12/01/18 04:49 BUN 16 mg/dL (7-17) 12/01/18 04:49 Creatinine 1.0 mg/dL (0.7-1.2) 12/01/18 04:49 Estimated GFR > 60 ml/min 12/01/18 04:49 BUN/Creatinine Ratio 16 % 12/01/18 04:49 Glucose 115 mg/dL (65-100) H 12/01/18 04:49 POC Glucose 101 (70-105) 12/01/18 06:08 Hemoglobin A1c 5.8 % (4-6) 11/28/18 23:47 Calcium 8.3 mg/dL (8.4-10.2) L 12/01/18 04:49 Total Bilirubin 0.50 mg/dL (0.1-1.2) 11/29/18 06:51 AST 18 units/L (5-40) 11/29/18 06:51 ALT 15 units/L (7-56) 11/29/18 06:51 Alkaline Phosphatase 50 units/L (35-129) 11/29/18 06:51 Troponin T < 0.010 ng/mL (0.00-0.029) 11/29/18 06:51 NT-Pro-B Natriuret Pep 242.9 pg/mL (0-450) 11/28/18 11:54 Total Protein 6.2 g/dL (6.3-8.2) L 11/29/18 06:51 Albumin 3.6 g/dL (3.9-5) L 11/29/18 06:51 Albumin/Globulin Ratio 1.4 % 11/29/18 06:51 Valproic Acid 63.1 ug/mL (50-100) 11/30/18 19:45 Active Medications - Current Medications Current Medications: Generic Name Dose Route Start Last Admin Trade Name Freq PRN Reason Stop Dose Admin Albuterol 2.5 mg 11/28/18 23:04 Proventil IH Q4HRT PRN Shortness Of Breath Aspirin 81 mg 11/29/18 10:00 11/30/18 14:35 Halfprin Ec PO 81 mg QDAY MARYA Administration Carvedilol 6.25 mg 11/28/18 23:00 11/30/18 23:25 Coreg PO 6.25 mg BID MARYA Administration Clonazepam 0.5 mg 11/28/18 23:00 11/30/18 23:27 Klonopin PO 0.5 mg BID MARYA Administration Diphenhydramine HCl 25 mg 11/28/18 18:10 11/28/18 18:39 Benadryl IV 25 mg Q6H PRN Administration Itching Hydralazine HCl 25 mg 11/29/18 08:00 11/30/18 23:27 Apresoline PO Not Given TID MARYA Levetiracetam 1,000 mg in 100 mls @ 400 mls/hr 12/01/18 06:00 12/01/18 06:54 Keppra 1,000 Mg/Ns 0.75% 100ml IV Infused Q12HR MARYA Infusion Valproate Sodium 1,000 mg/ 110 mls @ 100 mls/hr 11/30/18 20:00 12/01/18 05:58 Sodium Chloride IV 100 mls/hr Q8HR MARYA Administration Dextrose/Sodium Chloride 1,000 mls @ 42 mls/hr 11/30/18 20:00 D5ns IV DIRECT MARYA Lacosamide 200 mg/ Sodium 120 mls @ 100 mls/hr 11/30/18 21:00 12/01/18 01:13 Chloride IV Infused Q12H MARYA Infusion Lorazepam 1 mg 11/30/18 17:32 12/01/18 07:58 Ativan IV 1 mg Q1H PRN Administration Seizures Losartan Potassium 100 mg 11/29/18 10:00 11/30/18 19:44 Cozaar PO Not Given QDAY MARYA Montelukast Sodium 10 mg 11/29/18 18:00 11/30/18 19:47 Singulair PO Not Given QPM MARYA Nifedipine 90 mg 11/29/18 10:00 11/30/18 19:45 Procardia Xl PO Not Given DAILY MARYA Ondansetron HCl 4 mg 11/28/18 23:00 11/30/18 14:13 Zofran IV 4 mg Q8H PRN Administration Nausea And Vomiting Potassium Chloride 10 meq 11/29/18 00:00 11/30/18 23:25 K-Dur PO 10 meq Q12H MARYA Administration Sodium Chloride 10 ml 11/29/18 10:00 11/30/18 23:26 Sodium Chloride Flush Syringe 10 Ml IV 10 ml BID MARYA Administration Sodium Chloride 10 ml 11/28/18 23:00 11/29/18 06:54 Sodium Chloride Flush Syringe 10 Ml IV 10 ml PRN PRN Administration LINE FLUSH
[2018-12-01] MEDS: APRESOLINE PO SCH ×3 (11:03→21:09)
[2018-12-01] MEDS: COZAAR PO SCH (11:17)
[2018-12-01] MEDS: HALFPRIN EC PO SCH (11:18)
[2018-12-01] MEDS: COREG PO SCH ×2 (11:18→21:08)
[2018-12-01] MEDS: PROCARDIA XL PO SCH (11:18)
[2018-12-01] MEDS: K-DUR PO SCH (11:30)
[2018-12-01] MEDS: SODIUM CHLORIDE FLUSH SYRINGE 10 ML IV SCH ×2 (11:30→22:20)
--- NOTE | 2018-12-01 11:35 | Progress Note ---
Assessment and Plan Chest pain low probability for PE on V/Q scan No ischemia by MPI Nonischemic cardiomyopathy EF improved to 45% EF by MPI this admission 39% Hypertension Seizure disorder Recommendations: No further cardiac work-up is needed Continue guideline directed medical therapy Subjective Date of service: 12/01/18 Principal diagnosis: Chest Pain Interval history: Patient denies chest pain or shortness of breath No cardiac events overnight Objective Vital Signs Temp Pulse Resp BP Pulse Ox 12/01/18 06:30 88 17 102/72 95 12/01/18 06:00 95 H 22 102/72 95 12/01/18 05:30 91 H 17 112/72 96 12/01/18 05:00 86 15 117/75 97 12/01/18 04:30 87 16 112/72 93 12/01/18 04:00 98 F 92 H 19 112/72 92 12/01/18 03:30 91 H 17 133/85 97 12/01/18 03:00 90 19 146/89 99 12/01/18 02:30 88 18 146/89 99 12/01/18 02:00 88 18 146/89 98 12/01/18 01:30 92 H 18 138/98 97 12/01/18 01:00 90 18 138/98 96 12/01/18 00:30 89 18 128/89 96 12/01/18 00:00 90 13 127/82 98 11/30/18 23:30 91 H 17 127/82 93 11/30/18 23:00 96 H 21 130/84 91 11/30/18 22:36 96 H 94 11/30/18 21:00 84 11/30/18 19:31 98.4 F 102 H 18 118/64 93 11/30/18 16:21 97.6 F 18 123/81 11/30/18 14:23 98.2 F 86 17 123/77 97 11/30/18 12:27 123/77 11/30/18 12:26 123/79 11/30/18 12:25 115/77 11/30/18 12:24 131/82 11/30/18 12:22 120/78 - Physical Examination HEENT: Positive: PERRL Neck: Positive: trachea midline Cardiac: Positive: Reg Rate and Rhythm Lungs: Positive: Normal Exam Neuro: Positive: Grossly Intact Extremities: Present: edema - Labs and Meds CBC 12/01/18 Range/Units 04:49 WBC 5.9 (4.5-11.0) K/mm3 RBC 4.19 (3.65-5.03) M/mm3 Hgb 12.9 (10.1-14.3) gm/dl Hct 38.2 (30.3-42.9) % Plt Count 139 L (140-440) K/mm3 Comprehensive Metabolic Panel 12/01/18 Range/Units 04:49 Sodium 141 (137-145) mmol/L Potassium 4.1 (3.6-5.0) mmol/L Chloride 98.3 (98-107) mmol/L Carbon Dioxide 29 (22-30) mmol/L BUN 16 (7-17) mg/dL Creatinine 1.0 (0.7-1.2) mg/dL Glucose 115 H (65-100) mg/dL Calcium 8.3 L (8.4-10.2) mg/dL - Imaging and Cardiology EKG: report reviewed (normal sinus rhythm heart rate of 65 per minute LVH by voltage criteria nonspecific T-wave abnormalities)
--- NOTE | 2018-12-01 13:06 | Progress Note ---
Subjective Date of service: 12/01/18 Principal diagnosis: Chest Pain Interval history: CHQRT REVIEWED AND NOTES CONSULTED WILL ASSESS MATETRS FURTHER AND FOLLOW UP DID REVIEW SOME IAMGING STUDIES Objective - Vital Sign Vital Signs - 12hr 12/01/18 12/01/18 12/01/18 01:30 02:00 02:30 Temperature Pulse Rate 92 H 88 88 Respiratory 18 18 18 Rate Blood Pressure 138/98 146/89 146/89 O2 Sat by Pulse 97 98 99 Oximetry 12/01/18 12/01/18 12/01/18 03:00 03:30 04:00 Temperature 98 F Pulse Rate 90 91 H 92 H Respiratory 19 17 19 Rate Blood Pressure 146/89 133/85 112/72 O2 Sat by Pulse 99 97 92 Oximetry 12/01/18 12/01/18 12/01/18 04:30 05:00 05:30 Temperature Pulse Rate 87 86 91 H Respiratory 16 15 17 Rate Blood Pressure 112/72 117/75 112/72 O2 Sat by Pulse 93 97 96 Oximetry 12/01/18 12/01/18 06:00 06:30 Temperature Pulse Rate 95 H 88 Respiratory 22 17 Rate Blood Pressure 102/72 102/72 O2 Sat by Pulse 95 95 Oximetry - Laboratory Findings CBC and BMP: 12/01/18 04:49 12/01/18 04:49 Abnormal Lab Findings: Abnormal Labs 11/28/18 11/28/18 11/28/18 11:53 11:54 12:10 Plt Count Lymph % (Auto) 36.6 H D-Dimer 275.50 H Chloride 97.4 L Glucose 109 H POC Glucose Calcium Total Protein Albumin 11/29/18 11/29/18 12/01/18 06:51 06:51 03:22 Plt Count Lymph % (Auto) 37.9 H D-Dimer Chloride 96.5 L Glucose 117 H POC Glucose 127 H Calcium 8.2 L Total Protein 6.2 L Albumin 3.6 L 12/01/18 12/01/18 04:49 04:49 Plt Count 139 L Lymph % (Auto) D-Dimer Chloride Glucose 115 H POC Glucose Calcium 8.3 L Total Protein Albumin
[2018-12-01] MEDS: VIMPAT 200 MG in NACL 0.9% 100 ML IV SCH (13:30)
[2018-12-01] MEDS: D5NS 1,000 ML IV SCH (15:58)
[2018-12-01] MEDS: SINGULAIR PO SCH (20:00)
[2018-12-01] MEDS: TYLENOL PO PRN (23:12)
[2018-12-02] MEDS: K-DUR PO SCH ×3 (00:13→23:31)
[2018-12-02] MEDS: VIMPAT 200 MG in NACL 0.9% 100 ML IV SCH ×3 (00:14→21:26)
[2018-12-02] MEDS: ATIVAN IV PRN ×3 (05:17→18:59)
[2018-12-02] MEDS ORDERED: ATIVAN IV ONE (05:33)
[2018-12-02] MEDS: DepaCON 1,000 MG in NACL 0.9% 100 ML IV SCH ×3 (06:17→23:25)
[2018-12-02] MEDS: APRESOLINE PO SCH ×3 (08:33→20:41)
[2018-12-02] MEDS: SODIUM CHLORIDE FLUSH SYRINGE 10 ML IV SCH ×2 (10:20→21:31)
[2018-12-02] MEDS: COZAAR PO SCH (10:23)
[2018-12-02] MEDS: PROCARDIA XL PO SCH (10:23)
[2018-12-02] MEDS: KEPPRA 1,000 MG/NS 0.75% 100ML 1,000 MG/100 ML BAG IV SCH ×2 (10:23→22:57)
[2018-12-02] MEDS: COREG PO SCH ×2 (10:24→21:26)
[2018-12-02] MEDS: HALFPRIN EC PO SCH (10:24)
--- NOTE | 2018-12-02 10:39 | Progress Note ---
Assessment and Plan Assessment and plan: Breakthrough seizures Continue Keppra 100O mg iv bid Continue Depacon 1000 mg iv tid Ativan iv prn seizures Neurology following Seizure precautions Chest pain, non cardiac due to GERD Stress test neg XR knee Left knee pain Enthessophytes left knee Seizure disorder Hypertension Monitor BP Cardiomyopathy, Cardiology following Full code status History Interval history: Patient initially admitted for chest pain stress test is negative, However repeated seizures yesterday therefore transferred to [facility] Had two seizures overnight Hospitalist Physical - Physical exam Narrative exam: GEN: Not in acute distress, lying in bed, obese HEENT: Normocephalic, atraumatic, Neck: supple, No JVD heart: S1 and S2 reg, no murmurs, rubs or gallop Lungs: Decreased breath sounds bilaterally, rhonchi bilateral, wheeze Abd:soft, non tender, non distended, normal bowel sounds Ext: No edema,no clubbing, no cyanosis, tender left knee Neuro: Sedated, post ictal Psych:cannot evaluate - Constitutional Vitals: Temp Pulse Resp BP Pulse Ox 98.4 F 84 17 118/92 97 12/02/18 04:00 12/02/18 09:00 12/02/18 09:00 12/02/18 09:00 12/02/18 09:17 General appearance: Present: no acute distress Results - Labs CBC & Chem 7: 12/01/18 04:49 12/01/18 04:49 Labs: Laboratory Last Values WBC 5.9 K/mm3 (4.5-11.0) 12/01/18 04:49 RBC 4.19 M/mm3 (3.65-5.03) 12/01/18 04:49 Hgb 12.9 gm/dl (10.1-14.3) 12/01/18 04:49 Hct 38.2 % (30.3-42.9) 12/01/18 04:49 MCV 91 fl (79-97) 12/01/18 04:49 MCH 31 pg (28-32) 12/01/18 04:49 MCHC 34 % (30-34) 12/01/18 04:49 RDW 13.5 % (13.2-15.2) 12/01/18 04:49 Plt Count 139 K/mm3 (140-440) L 12/01/18 04:49 Lymph % (Auto) 37.9 % (13.4-35.0) H 11/29/18 06:51 [place] % (Auto) 7.0 % (0.0-7.3) 11/29/18 06:51 Eos % (Auto) 4.0 % (0.0-4.3) 11/29/18 06:51 Baso % (Auto) 0.5 % (0.0-1.8) 11/29/18 06:51 Lymph # 1.9 K/mm3 (1.2-5.4) 11/29/18 06:51 [place] # 0.4 K/mm3 (0.0-0.8) 11/29/18 06:51 Eos # 0.2 K/mm3 (0.0-0.4) 11/29/18 06:51 Baso # 0.0 K/mm3 (0.0-0.1) 11/29/18 06:51 Seg Neutrophils % 50.6 % (40.0-70.0) 11/29/18 06:51 Seg Neutrophils # 2.6 K/mm3 (1.8-7.7) 11/29/18 06:51 D-Dimer 275.50 ng/mlDDU (0-234) H 11/28/18 12:10 Sodium 141 mmol/L (137-145) 12/01/18 04:49 Potassium 4.1 mmol/L (3.6-5.0) 12/01/18 04:49 Chloride 98.3 mmol/L (98-107) 12/01/18 04:49 Carbon Dioxide 29 mmol/L (22-30) 12/01/18 04:49 Anion Gap 18 mmol/L 12/01/18 04:49 BUN 16 mg/dL (7-17) 12/01/18 04:49 Creatinine 1.0 mg/dL (0.7-1.2) 12/01/18 04:49 Estimated GFR > 60 ml/min 12/01/18 04:49 BUN/Creatinine Ratio 16 % 12/01/18 04:49 Glucose 115 mg/dL (65-100) H 12/01/18 04:49 POC Glucose 95 (70-105) 12/02/18 08:12 Hemoglobin A1c 5.8 % (4-6) 11/28/18 23:47 Calcium 8.3 mg/dL (8.4-10.2) L 12/01/18 04:49 Total Bilirubin 0.50 mg/dL (0.1-1.2) 11/29/18 06:51 AST 18 units/L (5-40) 11/29/18 06:51 ALT 15 units/L (7-56) 11/29/18 06:51 Alkaline Phosphatase 50 units/L (35-129) 11/29/18 06:51 Troponin T < 0.010 ng/mL (0.00-0.029) 11/29/18 06:51 NT-Pro-B Natriuret Pep 242.9 pg/mL (0-450) 11/28/18 11:54 Total Protein 6.2 g/dL (6.3-8.2) L 11/29/18 06:51 Albumin 3.6 g/dL (3.9-5) L 11/29/18 06:51 Albumin/Globulin Ratio 1.4 % 11/29/18 06:51 Valproic Acid 63.1 ug/mL (50-100) 11/30/18 19:45 Active Medications - Current Medications Current Medications: Generic Name Dose Route Start Last Admin Trade Name Freq PRN Reason Stop Dose Admin Acetaminophen 650 mg 12/01/18 22:43 12/01/18 23:12 Tylenol PO 650 mg Q4H PRN Administration Pain, Mild (1-3) Albuterol 2.5 mg 11/28/18 23:04 Proventil IH Q4HRT PRN Shortness Of Breath Aspirin 81 mg 11/29/18 10:00 12/02/18 10:24 Halfprin Ec PO 81 mg QDAY MARYA Administration Carvedilol 6.25 mg 11/28/18 23:00 12/02/18 10:24 Coreg PO 6.25 mg BID MARYA Administration Clonazepam 0.5 mg 11/28/18 23:00 12/02/18 10:23 Klonopin PO 0.5 mg BID MARYA Administration Diphenhydramine HCl 25 mg 11/28/18 18:10 11/28/18 18:39 Benadryl IV 25 mg Q6H PRN Administration Itching Hydralazine HCl 25 mg 11/29/18 08:00 12/02/18 08:33 Apresoline PO Not Given TID MARYA Levetiracetam 1,000 mg in 100 mls @ 400 mls/hr 12/01/18 06:00 12/02/18 10:23 Keppra 1,000 Mg/Ns 0.75% 100ml IV 400 mls/hr Q12HR MARYA Administration Valproate Sodium 1,000 mg/ 110 mls @ 100 mls/hr 11/30/18 20:00 12/02/18 06:17 Sodium Chloride IV 100 mls/hr Q8HR MARYA Administration Dextrose/Sodium Chloride 1,000 mls @ 42 mls/hr 11/30/18 20:00 12/01/18 15:58 D5ns IV 42 mls/hr DIRECT MRAYA Administration Lacosamide 200 mg/ Sodium 120 mls @ 100 mls/hr 11/30/18 21:00 12/02/18 10:20 Chloride IV 100 mls/hr Q12H MARYA Administration Lorazepam 1 mg 11/30/18 17:32 12/02/18 05:17 Ativan IV 1 mg Q1H PRN Administration Seizures Losartan Potassium 100 mg 11/29/18 10:00 12/02/18 10:23 Cozaar PO 100 mg QDAY MARYA Administration Montelukast Sodium 10 mg 11/29/18 18:00 12/01/18 20:00 Singulair PO Not Given QPM MARYA Nifedipine 90 mg 11/29/18 10:00 12/02/18 10:23 Procardia Xl PO 90 mg DAILY MARYA Administration Ondansetron HCl 4 mg 11/28/18 23:00 11/30/18 14:13 Zofran IV 4 mg Q8H PRN Administration Nausea And Vomiting Potassium Chloride 10 meq 11/29/18 00:00 12/02/18 00:13 K-Dur PO 10 meq Q12H MARYA Administration Sodium Chloride 10 ml 11/29/18 10:00 12/02/18 10:20 Sodium Chloride Flush Syringe 10 Ml IV 10 ml BID MARYA Administration Sodium Chloride 10 ml 11/28/18 23:00 11/29/18 06:54 Sodium Chloride Flush Syringe 10 Ml IV 10 ml PRN PRN Administration LINE FLUSH
[2018-12-02] MEDS: TYLENOL PO PRN (13:29)
--- NOTE | 2018-12-02 14:58 | Progress Note ---
Assessment and Plan - Patient Problems (1) Cardiomyopathy Current Visit: Yes Status: Chronic Qualifiers: Cardiomyopathy type: unspecified Qualified Code(s): I42.9 - Cardiomyopathy, unspecified Plan to address problem: Medical therapy for mild nonischemic cardiomyopathy. Subjective Date of service: 12/02/18 Principal diagnosis: Chest Pain Interval history: Patient is comfortable, no cardiac complaints, looks and feels better. Objective Vital Signs Temp Pulse Pulse Pulse Resp BP Pulse Ox 12/02/18 13:29 88 139/97 12/02/18 12:00 83 14 124/68 97 12/02/18 11:00 84 18 126/79 12/02/18 10:00 86 17 148/95 92 12/02/18 09:17 97 12/02/18 09:00 84 17 118/92 97 12/02/18 08:30 85 20 124/75 99 12/02/18 08:02 87 19 118/92 96 12/02/18 07:30 83 13 118/92 99 12/02/18 07:00 82 16 118/92 94 12/02/18 06:30 78 15 119/75 96 12/02/18 06:00 79 16 114/72 97 12/02/18 05:30 90 15 114/72 92 12/02/18 05:00 83 18 131/74 90 12/02/18 04:30 88 15 124/78 93 12/02/18 04:00 98.4 F 78 78 16 124/78 92 12/02/18 03:30 79 16 121/81 92 12/02/18 03:00 78 16 116/72 90 12/02/18 02:30 79 17 116/72 91 12/02/18 02:00 79 16 116/72 86 12/02/18 01:30 78 16 109/69 92 12/02/18 01:00 76 15 109/69 90 12/02/18 00:30 100/50 96 12/02/18 00:00 97.9 F 83 83 17 119/77 92 12/01/18 23:30 80 15 119/77 91 12/01/18 23:12 15 12/01/18 23:00 79 18 119/77 12/01/18 22:30 77 18 125/74 92 12/01/18 22:00 83 20 150/101 92 12/01/18 21:30 96 H 17 150/101 98 12/01/18 21:09 88 150/101 12/01/18 21:08 77 150/101 12/01/18 21:00 78 16 150/101 98 12/01/18 20:30 78 18 141/87 97 12/01/18 20:00 98.4 F 74 74 15 141/87 97 12/01/18 19:30 82 14 132/85 99 12/01/18 19:00 79 16 132/85 97 12/01/18 18:58 79 13 123/85 98 12/01/18 18:30 81 16 123/85 99 12/01/18 18:00 81 17 123/85 99 12/01/18 17:30 78 15 130/71 98 12/01/18 17:00 78 15 136/90 97 12/01/18 16:30 84 18 136/90 12/01/18 16:00 98.7 F 83 80 14 130/71 12/01/18 15:58 83 13 136/90 12/01/18 15:00 85 17 136/90 - Physical Examination General: No Apparent Distress HEENT: Positive: PERRL Neck: Positive: trachea midline Cardiac: Positive: Reg Rate and Rhythm Lungs: Positive: Decreased Breath Sounds Neuro: Positive: Grossly Intact Abdomen: Positive: Soft Skin: Positive: Clear Extremities: Absent: edema - Imaging and Cardiology EKG: report reviewed (normal sinus rhythm heart rate of 65 per minute LVH by voltage criteria nonspecific T-wave abnormalities)
[2018-12-02] MEDS: SINGULAIR PO SCH (17:36)
[2018-12-02] MEDS: D5NS 1,000 ML IV SCH (21:32)
[2018-12-03] MEDS: ATIVAN IV PRN ×2 (04:18→15:36)
[2018-12-03] MEDS: DepaCON 1,000 MG in NACL 0.9% 100 ML IV SCH ×3 (06:24→22:56)
--- NOTE | 2018-12-03 09:00 | Progress Note ---
Assessment and Plan Assessment and plan: Breakthrough seizures Continue Keppra 100O mg iv bid Continue Depacon 1000 mg iv tid Ativan iv prn seizures Neurology following Seizure precautions had 3 seizures past 24 hrs EEG tomorrow Chest pain, non cardiac due to GERD Stress test neg XR knee Left knee pain Enthessophytes left knee Seizure disorder Hypertension Monitor BP Cardiomyopathy, Cardiology following Full code status Patient still having seizures-not safe for dc home. History Interval history: Patient initially admitted for chest pain stress test is negative, However repeated seizures 12/01/18 yesterday therefore transferred to [facility] Had total 3 more seizures past 24 hrs Hospitalist Physical - Physical exam Narrative exam: GEN: Not in acute distress, lying in bed, morbidly obese HEENT: Normocephalic, atraumatic, Neck: supple, No JVD heart: S1 and S2 reg, no murmurs, rubs or gallop Lungs: Clear to auscultation bilat, no wheeze Abd:soft, non tender, non distended, normal bowel sounds Ext: No edema,no clubbing, no cyanosis, tender left knee Neuro: Awake,alert, oriented x 3, moves all ext Psych:cannot evaluate - Constitutional Vitals: Temp Pulse Resp BP Pulse Ox 98.1 F 86 17 132/93 96 12/03/18 08:00 12/03/18 08:00 12/03/18 08:00 12/03/18 08:00 12/03/18 08:00 General appearance: Present: no acute distress Results - Labs CBC & Chem 7: 12/01/18 04:49 12/01/18 04:49 Labs: Laboratory Last Values WBC 5.9 K/mm3 (4.5-11.0) 12/01/18 04:49 RBC 4.19 M/mm3 (3.65-5.03) 12/01/18 04:49 Hgb 12.9 gm/dl (10.1-14.3) 12/01/18 04:49 Hct 38.2 % (30.3-42.9) 12/01/18 04:49 MCV 91 fl (79-97) 12/01/18 04:49 MCH 31 pg (28-32) 12/01/18 04:49 MCHC 34 % (30-34) 12/01/18 04:49 RDW 13.5 % (13.2-15.2) 12/01/18 04:49 Plt Count 139 K/mm3 (140-440) L 12/01/18 04:49 Lymph % (Auto) 37.9 % (13.4-35.0) H 11/29/18 06:51 [place] % (Auto) 7.0 % (0.0-7.3) 11/29/18 06:51 Eos % (Auto) 4.0 % (0.0-4.3) 11/29/18 06:51 Baso % (Auto) 0.5 % (0.0-1.8) 11/29/18 06:51 Lymph # 1.9 K/mm3 (1.2-5.4) 11/29/18 06:51 [place] # 0.4 K/mm3 (0.0-0.8) 11/29/18 06:51 Eos # 0.2 K/mm3 (0.0-0.4) 11/29/18 06:51 Baso # 0.0 K/mm3 (0.0-0.1) 11/29/18 06:51 Seg Neutrophils % 50.6 % (40.0-70.0) 11/29/18 06:51 Seg Neutrophils # 2.6 K/mm3 (1.8-7.7) 11/29/18 06:51 D-Dimer 275.50 ng/mlDDU (0-234) H 11/28/18 12:10 Sodium 141 mmol/L (137-145) 12/01/18 04:49 Potassium 4.1 mmol/L (3.6-5.0) 12/01/18 04:49 Chloride 98.3 mmol/L (98-107) 12/01/18 04:49 Carbon Dioxide 29 mmol/L (22-30) 12/01/18 04:49 Anion Gap 18 mmol/L 12/01/18 04:49 BUN 16 mg/dL (7-17) 12/01/18 04:49 Creatinine 1.0 mg/dL (0.7-1.2) 12/01/18 04:49 Estimated GFR > 60 ml/min 12/01/18 04:49 BUN/Creatinine Ratio 16 % 12/01/18 04:49 Glucose 115 mg/dL (65-100) H 12/01/18 04:49 POC Glucose 123 (70-105) H 12/02/18 23:42 Hemoglobin A1c 5.8 % (4-6) 11/28/18 23:47 Calcium 8.3 mg/dL (8.4-10.2) L 12/01/18 04:49 Total Bilirubin 0.50 mg/dL (0.1-1.2) 11/29/18 06:51 AST 18 units/L (5-40) 11/29/18 06:51 ALT 15 units/L (7-56) 11/29/18 06:51 Alkaline Phosphatase 50 units/L (35-129) 11/29/18 06:51 Troponin T < 0.010 ng/mL (0.00-0.029) 11/29/18 06:51 NT-Pro-B Natriuret Pep 242.9 pg/mL (0-450) 11/28/18 11:54 Total Protein 6.2 g/dL (6.3-8.2) L 11/29/18 06:51 Albumin 3.6 g/dL (3.9-5) L 11/29/18 06:51 Albumin/Globulin Ratio 1.4 % 11/29/18 06:51 Valproic Acid 63.1 ug/mL (50-100) 11/30/18 19:45 Active Medications - Current Medications Current Medications: Generic Name Dose Route Start Last Admin Trade Name Freq PRN Reason Stop Dose Admin Acetaminophen 650 mg 12/01/18 22:43 12/02/18 13:29 Tylenol PO 650 mg Q4H PRN Administration Pain, Mild (1-3) Albuterol 2.5 mg 11/28/18 23:04 Proventil IH Q4HRT PRN Shortness Of Breath Aspirin 81 mg 11/29/18 10:00 12/02/18 10:24 Halfprin Ec PO 81 mg QDAY MARYA Administration Carvedilol 6.25 mg 11/28/18 23:00 12/02/18 21:26 Coreg PO 6.25 mg BID MARYA Administration Clonazepam 0.5 mg 11/28/18 23:00 12/02/18 21:26 Klonopin PO 0.5 mg BID MARYA Administration Diphenhydramine HCl 25 mg 11/28/18 18:10 11/28/18 18:39 Benadryl IV 25 mg Q6H PRN Administration Itching Hydralazine HCl 25 mg 11/29/18 08:00 12/02/18 20:41 Apresoline PO 25 mg TID MARYA Administration Levetiracetam 1,000 mg in 100 mls @ 400 mls/hr 12/01/18 06:00 12/02/18 22:57 Keppra 1,000 Mg/Ns 0.75% 100ml IV 400 mls/hr Q12HR MARYA Administration Valproate Sodium 1,000 mg/ 110 mls @ 100 mls/hr 11/30/18 20:00 12/03/18 06:24 Sodium Chloride IV 100 mls/hr Q8HR MARYA Administration Dextrose/Sodium Chloride 1,000 mls @ 42 mls/hr 11/30/18 20:00 12/02/18 21:32 D5ns IV 42 mls/hr DIRECT MARYA Administration Lacosamide 200 mg/ Sodium 120 mls @ 100 mls/hr 11/30/18 21:00 12/02/18 21:26 Chloride IV 100 mls/hr Q12H MARYA Administration Lorazepam 1 mg 11/30/18 17:32 12/03/18 04:18 Ativan IV 1 mg Q1H PRN Administration Seizures Losartan Potassium 100 mg 11/29/18 10:00 12/02/18 10:23 Cozaar PO 100 mg QDAY MARYA Administration Montelukast Sodium 10 mg 11/29/18 18:00 12/02/18 17:36 Singulair PO 10 mg QPM MARYA Administration Nifedipine 90 mg 11/29/18 10:00 12/02/18 10:23 Procardia Xl PO 90 mg DAILY MARYA Administration Ondansetron HCl 4 mg 11/28/18 23:00 11/30/18 14:13 Zofran IV 4 mg Q8H PRN Administration Nausea And Vomiting Potassium Chloride 10 meq 11/29/18 00:00 12/02/18 23:31 K-Dur PO 10 meq Q12H MARYA Administration Sodium Chloride 10 ml 11/29/18 10:00 12/02/18 21:31 Sodium Chloride Flush Syringe 10 Ml IV 10 ml BID MARYA Administration Sodium Chloride 10 ml 11/28/18 23:00 11/29/18 06:54 Sodium Chloride Flush Syringe 10 Ml IV 10 ml PRN PRN Administration LINE FLUSH
[2018-12-03] MEDS: COZAAR PO SCH (10:07)
[2018-12-03] MEDS: COREG PO SCH ×2 (10:07→22:56)
[2018-12-03] MEDS: PROCARDIA XL PO SCH (10:07)
[2018-12-03] MEDS: HALFPRIN EC PO SCH (10:08)
[2018-12-03] MEDS: SODIUM CHLORIDE FLUSH SYRINGE 10 ML IV SCH ×2 (10:08→22:59)
[2018-12-03] MEDS: VIMPAT 200 MG in NACL 0.9% 100 ML IV SCH ×2 (10:08→20:53)
[2018-12-03] MEDS: KEPPRA 1,000 MG/NS 0.75% 100ML 1,000 MG/100 ML BAG IV SCH ×2 (10:08→22:56)
[2018-12-03] MEDS: APRESOLINE PO SCH ×3 (10:09→20:54)
[2018-12-03] MEDS: K-DUR PO SCH (13:14)
--- NOTE | 2018-12-03 13:19 | Progress Note ---
Subjective Date of service: 12/03/18 Principal diagnosis: Chest Pain Interval history: advise Vimpat dosing current dose is therapeutic and recooemend continue same dose and get valproic acid level Objective - Vital Sign Vital Signs - 12hr 12/03/18 12/03/18 12/03/18 01:00 02:00 03:00 Temperature Pulse Rate 73 86 83 Respiratory 17 19 18 Rate Blood Pressure 105/64 108/63 O2 Sat by Pulse 95 94 92 Oximetry 12/03/18 12/03/18 12/03/18 04:00 05:00 06:00 Temperature 98.4 F Pulse Rate 82 87 80 Respiratory 16 13 16 Rate Blood Pressure 111/66 127/80 116/61 O2 Sat by Pulse 98 85 91 Oximetry 12/03/18 12/03/18 12/03/18 07:00 08:00 09:00 Temperature 98.1 F Pulse Rate 88 86 83 Respiratory 18 17 17 Rate Blood Pressure 115/73 132/93 142/95 O2 Sat by Pulse 91 96 96 Oximetry 12/03/18 12/03/18 12/03/18 10:00 10:07 10:09 Temperature Pulse Rate 85 92 H 90 Respiratory 18 Rate Blood Pressure 142/95 148/87 148/87 O2 Sat by Pulse 100 Oximetry 12/03/18 12/03/18 11:00 12:00 Temperature 98.0 F Pulse Rate 86 87 Respiratory 18 17 Rate Blood Pressure 138/94 138/94 O2 Sat by Pulse 96 89 Oximetry - Laboratory Findings CBC and BMP: 12/01/18 04:49 12/01/18 04:49 Abnormal Lab Findings: Abnormal Labs 11/28/18 11/28/18 11/28/18 11:53 11:54 12:10 Plt Count Lymph % (Auto) 36.6 H D-Dimer 275.50 H Chloride 97.4 L Glucose 109 H POC Glucose Calcium Total Protein Albumin 11/29/18 11/29/18 12/01/18 06:51 06:51 03:22 Plt Count Lymph % (Auto) 37.9 H D-Dimer Chloride 96.5 L Glucose 117 H POC Glucose 127 H Calcium 8.2 L Total Protein 6.2 L Albumin 3.6 L 12/01/18 12/01/18 12/02/18 04:49 04:49 23:42 Plt Count 139 L Lymph % (Auto) D-Dimer Chloride Glucose 115 H POC Glucose 123 H Calcium 8.3 L Total Protein Albumin
[2018-12-03] MEDS: SINGULAIR PO SCH (18:02)
[2018-12-03] MEDS: D5NS 1,000 ML IV SCH (20:55)
[2018-12-04] MEDS: K-DUR PO SCH ×2 (01:25→15:38)
[2018-12-04] MEDS: ATIVAN IV PRN (06:53)
[2018-12-04] MEDS: DepaCON 1,000 MG in NACL 0.9% 100 ML IV SCH ×2 (06:53→15:39)
--- NOTE | 2018-12-04 09:18 | Progress Note ---
Assessment and Plan Assessment and plan: patient is 48-year-old with hypertension, cardiomyopathy,seizure disorder, morbid obesity. She presented with chest pain. Stress test was done was negative. She was about to be discharged home when she developed breakthrough seizues. She was given Ativan. She had repeated seizures so was transferred to [facility]. Patient had been on Keppra and valproic acid at home. The Keppra dose was increased from 500 [id number] mg IV twice a day. valproic acid was continued same dose but given IV. Vimpat was added in ED. She was seen and evaluated by Dr. schwartz. She continues to have 2-3 seizures every day. She is scheduled for MRI and EEG today. Plan is to discharged home when seizure free for 24 hours. Seizure meds per neurology eval. Breakthrough seizures Continue Keppra 100O mg iv bid Continue Depacon 1000 mg iv tid Lacosamide Ativan iv prn seizures Neurology following Seizure precautions EEG today MRI Brain today Chest pain, non cardiac, due to GERD Stress test neg XR knee Left knee pain Enthessophytes left knee Seizure disorder Hypertension Monitor BP Cardiomyopathy, Cardiology following Full code status Patient still having seizures-not safe for dc home. May dc home if no seizures for 24hrs No driving for at least 6 mths History Interval history: Patient initially admitted for chest pain stress test is negative, However repeated seizures 12/01/18 therefore transferred to [facility] Seizures this morning 12/04 Hospitalist Physical - Physical exam Narrative exam: GEN: Not in acute distress, lying in bed, morbidly obese HEENT: Normocephalic, atraumatic, Neck: supple, No JVD heart: S1 and S2 reg, no murmurs, rubs or gallop Lungs: Clear to auscultation bilat, no wheeze Abd:soft, non tender, non distended, normal bowel sounds Ext: No edema,no clubbing, no cyanosis, tender left knee Neuro: Awake,alert, oriented x 3, moves all ext Psych:cannot evaluate - Constitutional Vitals: Temp Pulse Resp BP Pulse Ox 97.6 F 78 16 141/87 96 12/04/18 04:00 12/04/18 06:00 12/04/18 06:00 12/04/18 06:00 12/03/18 19:00 General appearance: Present: no acute distress Results - Labs CBC & Chem 7: 12/01/18 04:49 12/04/18 09:39 Labs: Laboratory Last Values WBC 5.9 K/mm3 (4.5-11.0) 12/01/18 04:49 RBC 4.19 M/mm3 (3.65-5.03) 12/01/18 04:49 Hgb 12.9 gm/dl (10.1-14.3) 12/01/18 04:49 Hct 38.2 % (30.3-42.9) 12/01/18 04:49 MCV 91 fl (79-97) 12/01/18 04:49 MCH 31 pg (28-32) 12/01/18 04:49 MCHC 34 % (30-34) 12/01/18 04:49 RDW 13.5 % (13.2-15.2) 12/01/18 04:49 Plt Count 139 K/mm3 (140-440) L 12/01/18 04:49 Lymph % (Auto) 37.9 % (13.4-35.0) H 11/29/18 06:51 [place] % (Auto) 7.0 % (0.0-7.3) 11/29/18 06:51 Eos % (Auto) 4.0 % (0.0-4.3) 11/29/18 06:51 Baso % (Auto) 0.5 % (0.0-1.8) 11/29/18 06:51 Lymph # 1.9 K/mm3 (1.2-5.4) 11/29/18 06:51 [place] # 0.4 K/mm3 (0.0-0.8) 11/29/18 06:51 Eos # 0.2 K/mm3 (0.0-0.4) 11/29/18 06:51 Baso # 0.0 K/mm3 (0.0-0.1) 11/29/18 06:51 Seg Neutrophils % 50.6 % (40.0-70.0) 11/29/18 06:51 Seg Neutrophils # 2.6 K/mm3 (1.8-7.7) 11/29/18 06:51 D-Dimer 275.50 ng/mlDDU (0-234) H 11/28/18 12:10 Sodium 141 mmol/L (137-145) 12/01/18 04:49 Potassium 4.1 mmol/L (3.6-5.0) 12/01/18 04:49 Chloride 98.3 mmol/L (98-107) 12/01/18 04:49 Carbon Dioxide 29 mmol/L (22-30) 12/01/18 04:49 Anion Gap 18 mmol/L 12/01/18 04:49 BUN 16 mg/dL (7-17) 12/01/18 04:49 Creatinine 1.0 mg/dL (0.7-1.2) 12/01/18 04:49 Estimated GFR > 60 ml/min 12/01/18 04:49 BUN/Creatinine Ratio 16 % 12/01/18 04:49 Glucose 115 mg/dL (65-100) H 12/01/18 04:49 POC Glucose 89 (70-105) 12/04/18 05:56 Hemoglobin A1c 5.8 % (4-6) 11/28/18 23:47 Calcium 8.3 mg/dL (8.4-10.2) L 12/01/18 04:49 Total Bilirubin 0.50 mg/dL (0.1-1.2) 11/29/18 06:51 AST 18 units/L (5-40) 11/29/18 06:51 ALT 15 units/L (7-56) 11/29/18 06:51 Alkaline Phosphatase 50 units/L (35-129) 11/29/18 06:51 Troponin T < 0.010 ng/mL (0.00-0.029) 11/29/18 06:51 NT-Pro-B Natriuret Pep 242.9 pg/mL (0-450) 11/28/18 11:54 Total Protein 6.2 g/dL (6.3-8.2) L 11/29/18 06:51 Albumin 3.6 g/dL (3.9-5) L 11/29/18 06:51 Albumin/Globulin Ratio 1.4 % 11/29/18 06:51 Valproic Acid 83.7 ug/mL (50-100) 12/03/18 14:27 Active Medications - Current Medications Current Medications: Generic Name Dose Route Start Last Admin Trade Name Freq PRN Reason Stop Dose Admin Acetaminophen 650 mg 12/01/18 22:43 12/02/18 13:29 Tylenol PO 650 mg Q4H PRN Administration Pain, Mild (1-3) Albuterol 2.5 mg 11/28/18 23:04 Proventil IH Q4HRT PRN Shortness Of Breath Aspirin 81 mg 11/29/18 10:00 12/03/18 10:08 Halfprin Ec PO 81 mg QDAY MARYA Administration Carvedilol 6.25 mg 11/28/18 23:00 12/03/18 22:56 Coreg PO 6.25 mg BID MARYA Administration Clonazepam 0.5 mg 11/28/18 23:00 12/03/18 22:56 Klonopin PO 0.5 mg BID MARYA Administration Diphenhydramine HCl 25 mg 11/28/18 18:10 11/28/18 18:39 Benadryl IV 25 mg Q6H PRN Administration Itching Hydralazine HCl 25 mg 11/29/18 08:00 12/03/18 20:54 Apresoline PO 25 mg TID MARYA Administration Levetiracetam 1,000 mg in 100 mls @ 400 mls/hr 12/01/18 06:00 12/03/18 22:56 Keppra 1,000 Mg/Ns 0.75% 100ml IV 400 mls/hr Q12HR MARYA Administration Valproate Sodium 1,000 mg/ 110 mls @ 100 mls/hr 11/30/18 20:00 12/04/18 06:53 Sodium Chloride IV 100 mls/hr Q8HR MARYA Administration Dextrose/Sodium Chloride 1,000 mls @ 42 mls/hr 11/30/18 20:00 12/03/18 20:55 D5ns IV 42 mls/hr DIRECT MARYA Administration Lacosamide 200 mg/ Sodium 120 mls @ 100 mls/hr 11/30/18 21:00 12/03/18 20:53 Chloride IV 100 mls/hr Q12H MARYA Administration Lorazepam 1 mg 11/30/18 17:32 12/04/18 06:53 Ativan IV 1 mg Q1H PRN Administration Seizures Losartan Potassium 100 mg 11/29/18 10:00 12/03/18 10:07 Cozaar PO 100 mg QDAY MARYA Administration Montelukast Sodium 10 mg 11/29/18 18:00 12/03/18 18:02 Singulair PO Not Given QPM MARYA Nifedipine 90 mg 11/29/18 10:00 12/03/18 10:07 Procardia Xl PO 90 mg DAILY MARYA Administration Ondansetron HCl 4 mg 11/28/18 23:00 11/30/18 14:13 Zofran IV 4 mg Q8H PRN Administration Nausea And Vomiting Potassium Chloride 10 meq 11/29/18 00:00 12/04/18 01:25 K-Dur PO Not Given Q12H MARYA Sodium Chloride 10 ml 11/29/18 10:00 12/03/18 22:59 Sodium Chloride Flush Syringe 10 Ml IV Not Given BID MARYA Sodium Chloride 10 ml 11/28/18 23:00 11/29/18 06:54 Sodium Chloride Flush Syringe 10 Ml IV 10 ml PRN PRN Administration LINE FLUSH
[2018-12-04] MEDS: VIMPAT 200 MG in NACL 0.9% 100 ML IV SCH ×2 (09:28→22:42)
[2018-12-04] MEDS: COREG PO SCH (09:28)
[2018-12-04] MEDS: HALFPRIN EC PO SCH (09:29)
[2018-12-04] MEDS: APRESOLINE PO SCH ×3 (09:29→22:36)
[2018-12-04] MEDS: COZAAR PO SCH (09:29)
[2018-12-04] MEDS: SODIUM CHLORIDE FLUSH SYRINGE 10 ML IV SCH ×2 (09:30→22:48)
[2018-12-04] MEDS: PROCARDIA XL PO SCH (09:30)
[2018-12-04] MEDS: KEPPRA 1,000 MG/NS 0.75% 100ML 1,000 MG/100 ML BAG IV SCH ×2 (09:30→22:43)
[2018-12-04 10:26] LABS: BUN/Creatinine Ratio 10; Blood Urea Nitrogen 8 mg/dL (7-17); Calcium 8.5 mg/dL (8.4-10.2); Hemolysis Index 7
[2018-12-04] MEDS: ZOFRAN IV PRN (15:25)
--- NOTE | 2018-12-04 17:16 | Progress Note ---
Subjective Date of service: 12/04/18 Principal diagnosis: Chest Pain Interval history: the valproic acid level is 83.7 which is therapeutic she is on therapeutic doses of the vimpat the combo of valroic and vimpat are generally very effective adise continue same meds as outlined Objective - Vital Sign Vital Signs - 12hr 12/04/18 12/04/18 12/04/18 06:00 07:00 08:00 Temperature 97.7 F Pulse Rate 78 87 93 H Pulse Rate [ 82 From Monitor] Respiratory 16 19 18 Rate Blood Pressure 141/87 142/84 124/64 O2 Sat by Pulse 98 Oximetry 12/04/18 12/04/18 12/04/18 09:00 09:28 09:29 Temperature Pulse Rate 86 93 H 93 H Pulse Rate [ From Monitor] Respiratory 16 Rate Blood Pressure 140/106 159/104 159/104 O2 Sat by Pulse Oximetry 12/04/18 12/04/18 12/04/18 10:00 11:00 12:00 Temperature 98.5 F Pulse Rate 90 84 82 Pulse Rate [ 80 From Monitor] Respiratory 16 18 17 Rate Blood Pressure 159/104 141/91 142/87 O2 Sat by Pulse 97 Oximetry 12/04/18 12/04/18 12/04/18 13:00 14:00 15:00 Temperature Pulse Rate 80 100 H 92 H Pulse Rate [ From Monitor] Respiratory 17 16 16 Rate Blood Pressure 142/87 126/84 127/86 O2 Sat by Pulse Oximetry 12/04/18 12/04/18 15:38 16:00 Temperature 97.8 F Pulse Rate 76 Pulse Rate [ From Monitor] Respiratory Rate Blood Pressure 131/83 O2 Sat by Pulse Oximetry - Laboratory Findings CBC and BMP: 12/01/18 04:49 12/04/18 09:39 Abnormal Lab Findings: Abnormal Labs 11/28/18 11/28/18 11/28/18 11:53 11:54 12:10 Plt Count Lymph % (Auto) 36.6 H D-Dimer 275.50 H Chloride 97.4 L Glucose 109 H POC Glucose Calcium Total Protein Albumin 11/29/18 11/29/18 12/01/18 06:51 06:51 03:22 Plt Count Lymph % (Auto) 37.9 H D-Dimer Chloride 96.5 L Glucose 117 H POC Glucose 127 H Calcium 8.2 L Total Protein 6.2 L Albumin 3.6 L 12/01/18 12/01/18 12/02/18 04:49 04:49 23:42 Plt Count 139 L Lymph % (Auto) D-Dimer Chloride Glucose 115 H POC Glucose 123 H Calcium 8.3 L Total Protein Albumin 12/03/18 12/04/18 12/04/18 18:26 09:39 10:06 Plt Count Lymph % (Auto) D-Dimer Chloride Glucose 112 H POC Glucose 68 L 127 H Calcium Total Protein Albumin
[2018-12-05] MEDS: DepaCON 1,000 MG in NACL 0.9% 100 ML IV SCH ×3 (05:37→16:22)
[2018-12-05] MEDS: ATIVAN IV PRN (06:07)
--- NOTE | 2018-12-05 08:48 | Magnetic Resonance Report ---
MRI OF THE BRAIN WITHOUT CONTRAST: HISTORY: Seizures PROCEDURE: Multiplanar, multisequence MR imaging of the brain without IV contrast was performed. FINDINGS: Compared to the CT head without contrast dated 09/15/16. The brain parenchyma signal intensity and its robles white interface are within normal limits on all sequences. No evidence for acute ischemia, hemorrhage or mass. No chronic infarct or extra-axial fluid collection. The midline structures are central. The basal cisterns are patent. Normal ventricular size. The medial temporal lobes are symmetric and unremarkable. The orbital cavities and sella turcica demonstrate no abnormality. The visualized paranasal sinuses are well aerated. There is partial opacification of the mastoid air cells with fluid, left greater than right. Middle ear contents are grossly normal. IMPRESSION: Normal MRI of the brain. Small fluid in the mastoid air cells of doubtful clinical significance.
[2018-12-05] MEDS: PROCARDIA XL PO SCH (09:00)
[2018-12-05] MEDS: APRESOLINE PO SCH ×3 (09:00→20:35)
[2018-12-05] MEDS: SODIUM CHLORIDE FLUSH SYRINGE 10 ML IV SCH ×2 (09:00→21:32)
[2018-12-05] MEDS: HALFPRIN EC PO SCH (09:00)
[2018-12-05] MEDS: COZAAR PO SCH (10:00)
[2018-12-05] MEDS: COREG PO SCH ×2 (10:00→21:31)
--- NOTE | 2018-12-05 10:01 | Progress Note ---
Subjective Date of service: 12/05/18 Principal diagnosis: Chest Pain Interval history: came by and spoke directly to the ... explained dx and course of therapy... 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 OK to be discharged Objective - Vital Sign Vital Signs - 12hr 12/04/18 12/04/18 12/04/18 22:36 22:39 23:00 Temperature Pulse Rate 93 H 91 H 96 H Pulse Rate [ From Monitor] Respiratory 23 Rate Blood Pressure 131/79 131/79 131/79 O2 Sat by Pulse Oximetry 12/05/18 12/05/18 12/05/18 00:00 01:00 02:00 Temperature 98.1 F Pulse Rate 87 96 H 89 Pulse Rate [ 83 From Monitor] Respiratory 20 19 18 Rate Blood Pressure 146/95 149/100 149/100 O2 Sat by Pulse 95 Oximetry 12/05/18 03:49 Temperature 98.3 F Pulse Rate Pulse Rate [ From Monitor] Respiratory Rate Blood Pressure O2 Sat by Pulse Oximetry - Laboratory Findings CBC and BMP: 12/01/18 04:49 12/04/18 09:39 Abnormal Lab Findings: Abnormal Labs 11/28/18 11/28/18 11/28/18 11:53 11:54 12:10 Plt Count Lymph % (Auto) 36.6 H D-Dimer 275.50 H Chloride 97.4 L Glucose 109 H POC Glucose Calcium Total Protein Albumin 11/29/18 11/29/18 12/01/18 06:51 06:51 03:22 Plt Count Lymph % (Auto) 37.9 H D-Dimer Chloride 96.5 L Glucose 117 H POC Glucose 127 H Calcium 8.2 L Total Protein 6.2 L Albumin 3.6 L 12/01/18 12/01/18 12/02/18 04:49 04:49 23:42 Plt Count 139 L Lymph % (Auto) D-Dimer Chloride Glucose 115 H POC Glucose 123 H Calcium 8.3 L Total Protein Albumin 12/03/18 12/04/18 12/04/18 18:26 09:39 10:06 Plt Count Lymph % (Auto) D-Dimer Chloride Glucose 112 H POC Glucose 68 L 127 H Calcium Total Protein Albumin 12/05/18 01:56 Plt Count Lymph % (Auto) D-Dimer Chloride Glucose POC Glucose 126 H Calcium Total Protein Albumin
--- NOTE | 2018-12-05 14:32 | Progress Note ---
Assessment and Plan Assessment and plan: Breakthrough seizures Continue Keppra 100O mg iv bid Continue Depacon 1000 mg iv tid Lacosamide Ativan iv prn seizures Neurology following Seizure precautions EEG today MRI Brain today Chest pain, non cardiac, due to GERD Stress test neg XR knee Left knee pain Enthessophytes left knee Seizure disorder Hypertension Monitor BP Cardiomyopathy, Cardiology following Full code status Patient still having seizures-not safe for dc home. May dc home if no seizures for 24hrs No driving for at least 6 mths History Interval history: patient is 48-year-old with hypertension, cardiomyopathy,seizure disorder, morbid obesity. She presented with chest pain. Stress test was done was negative. She was about to be discharged home when she developed breakthrough seizues. She was given Ativan. She had repeated seizures so was transferred to [facility]. Patient had been on Keppra and valproic acid at home. The Keppra dose was increased from 500 [id number] mg IV twice a day. valproic acid was continued same dose but given IV. Vimpat was added in ED. She was seen and evaluated by Dr. schwartz. She continues to have 2-3 seizures every day. She is scheduled for MRI and EEG today. Plan is to discharged home when seizure free for 24 hours. Seizure meds per neurology eval. No new issues overnight Hospitalist Physical - Constitutional Vitals: Temp Pulse Resp BP Pulse Ox 98.3 F 84 18 128/80 96 12/05/18 11:51 12/05/18 10:00 12/05/18 10:00 12/05/18 10:00 12/05/18 10:00 General appearance: Present: no acute distress - EENT Eyes: Present: PERRL, EOM intact ENT: hearing intact, clear oral mucosa, dentition normal - Neck Neck: Present: supple, normal ROM - Respiratory Respiratory effort: normal Respiratory: bilateral: CTA - Cardiovascular Rhythm: regular Heart Sounds: Present: S1 & S2. Absent: gallop, rub - Extremities Extremities: no ischemia, No edema, Full ROM - Abdominal General gastrointestinal: soft, non-tender, non-distended, normal bowel sounds - Integumentary Integumentary: Present: clear, warm, dry - Neurologic Neurologic: CNII-XII intact, moves all extremities Results - Labs CBC & Chem 7: 12/01/18 04:49 12/04/18 09:39 Labs: Laboratory Last Values WBC 5.9 K/mm3 (4.5-11.0) 12/01/18 04:49 RBC 4.19 M/mm3 (3.65-5.03) 12/01/18 04:49 Hgb 12.9 gm/dl (10.1-14.3) 12/01/18 04:49 Hct 38.2 % (30.3-42.9) 12/01/18 04:49 MCV 91 fl (79-97) 12/01/18 04:49 MCH 31 pg (28-32) 12/01/18 04:49 MCHC 34 % (30-34) 12/01/18 04:49 RDW 13.5 % (13.2-15.2) 12/01/18 04:49 Plt Count 139 K/mm3 (140-440) L 12/01/18 04:49 Lymph % (Auto) 37.9 % (13.4-35.0) H 11/29/18 06:51 [place] % (Auto) 7.0 % (0.0-7.3) 11/29/18 06:51 Eos % (Auto) 4.0 % (0.0-4.3) 11/29/18 06:51 Baso % (Auto) 0.5 % (0.0-1.8) 11/29/18 06:51 Lymph # 1.9 K/mm3 (1.2-5.4) 11/29/18 06:51 [place] # 0.4 K/mm3 (0.0-0.8) 11/29/18 06:51 Eos # 0.2 K/mm3 (0.0-0.4) 11/29/18 06:51 Baso # 0.0 K/mm3 (0.0-0.1) 11/29/18 06:51 Seg Neutrophils % 50.6 % (40.0-70.0) 11/29/18 06:51 Seg Neutrophils # 2.6 K/mm3 (1.8-7.7) 11/29/18 06:51 D-Dimer 275.50 ng/mlDDU (0-234) H 11/28/18 12:10 Sodium 144 mmol/L (137-145) 12/04/18 09:39 Potassium 4.0 mmol/L (3.6-5.0) 12/04/18 09:39 Chloride 104.4 mmol/L (98-107) 12/04/18 09:39 Carbon Dioxide 27 mmol/L (22-30) 12/04/18 09:39 Anion Gap 17 mmol/L 12/04/18 09:39 BUN 8 mg/dL (7-17) 12/04/18 09:39 Creatinine 0.8 mg/dL (0.7-1.2) 12/04/18 09:39 Estimated GFR > 60 ml/min 12/04/18 09:39 BUN/Creatinine Ratio 10 % 12/04/18 09:39 Glucose 112 mg/dL (65-100) H 12/04/18 09:39 POC Glucose 85 (70-105) 12/05/18 11:41 Hemoglobin A1c 5.8 % (4-6) 11/28/18 23:47 Calcium 8.5 mg/dL (8.4-10.2) 12/04/18 09:39 Total Bilirubin 0.50 mg/dL (0.1-1.2) 11/29/18 06:51 AST 18 units/L (5-40) 11/29/18 06:51 ALT 15 units/L (7-56) 11/29/18 06:51 Alkaline Phosphatase 50 units/L (35-129) 11/29/18 06:51 Troponin T < 0.010 ng/mL (0.00-0.029) 11/29/18 06:51 NT-Pro-B Natriuret Pep 242.9 pg/mL (0-450) 11/28/18 11:54 Total Protein 6.2 g/dL (6.3-8.2) L 11/29/18 06:51 Albumin 3.6 g/dL (3.9-5) L 11/29/18 06:51 Albumin/Globulin Ratio 1.4 % 11/29/18 06:51 Valproic Acid 83.7 ug/mL (50-100) 12/03/18 14:27 Active Medications - Current Medications Current Medications: Generic Name Dose Route Start Last Admin Trade Name Freq PRN Reason Stop Dose Admin Acetaminophen 650 mg 12/01/18 22:43 12/02/18 13:29 Tylenol PO 650 mg Q4H PRN Administration Pain, Mild (1-3) Albuterol 2.5 mg 11/28/18 23:04 Proventil IH Q4HRT PRN Shortness Of Breath Aspirin 81 mg 11/29/18 10:00 12/04/18 09:29 Halfprin Ec PO 81 mg QDAY MARYA Administration Carvedilol 6.25 mg 11/28/18 23:00 12/04/18 09:28 Coreg PO 6.25 mg BID MARYA Administration Clonazepam 0.5 mg 11/28/18 23:00 12/04/18 22:46 Klonopin PO 0.5 mg BID MARYA Administration Diphenhydramine HCl 25 mg 11/28/18 18:10 11/28/18 18:39 Benadryl IV 25 mg Q6H PRN Administration Itching Hydralazine HCl 25 mg 11/29/18 08:00 12/04/18 22:36 Apresoline PO 25 mg TID MARYA Administration Valproate Sodium 1,000 mg/ 110 mls @ 100 mls/hr 11/30/18 20:00 12/05/18 06:45 Sodium Chloride IV 100 mls/hr Q8HR MARYA Administration Dextrose/Sodium Chloride 1,000 mls @ 42 mls/hr 11/30/18 20:00 12/03/18 20:55 D5ns IV 42 mls/hr DIRECT MARYA Administration Lacosamide 200 mg 12/05/18 22:00 Vimpat PO Q12HR MARYA Levetiracetam 1,000 mg 12/05/18 22:00 Keppra PO BID MARYA Lorazepam 1 mg 11/30/18 17:32 12/05/18 06:07 Ativan IV 1 mg Q1H PRN Administration Seizures Losartan Potassium 100 mg 11/29/18 10:00 12/04/18 09:29 Cozaar PO 100 mg QDAY MARYA Administration Montelukast Sodium 10 mg 11/29/18 18:00 12/03/18 18:02 Singulair PO Not Given QPM MARYA Nifedipine 90 mg 11/29/18 10:00 12/04/18 09:30 Procardia Xl PO 90 mg DAILY MARYA Administration Ondansetron HCl 4 mg 11/28/18 23:00 12/04/18 15:25 Zofran IV 4 mg Q8H PRN Administration Nausea And Vomiting Potassium Chloride 10 meq 11/29/18 00:00 12/04/18 15:38 K-Dur PO 10 meq Q12H MARYA Administration Sodium Chloride 10 ml 11/29/18 10:00 12/04/18 22:48 Sodium Chloride Flush Syringe 10 Ml IV 10 ml BID MARYA Administration Sodium Chloride 10 ml 11/28/18 23:00 11/29/18 06:54 Sodium Chloride Flush Syringe 10 Ml IV 10 ml PRN PRN Administration LINE FLUSH Nutrition/Malnutrition Assess - Dietary Evaluation Nutrition/Malnutrition Findings: Nutrition Notes Start: 12/05/18 13:40 Freq: Status: Active Protocol: Document 12/05/18 13:40 EB (Rec: 12/05/18 13:49 EB [id number]) Co-Sign 12/05/18 13:40 LP Nutrition Notes Need for Assessment generated from: LOS Initial or Follow up Brief Note Current Diagnosis Hypertension Other Pertinent Diagnosis Depression, seizures, anemia Current Diet NPO Labs/Tests Reviewed Pertinent Medications Keppra Ativan Height 5 ft 4 in Weight 109 kg Usual Body Weight 105.233 kg [place] Body Weight (kg) 54.54 BMI 41.2 Intake Prior to Admission Good Weight Status Obese Subjective/Other Information Screened for LOS. Pt resting in room at time of visit. Pt currently NPO and has been since 11/28 due to seizure activity and MD ordered NPO status until pt goes 24 hours without seizure. Pt reports 2- 3 seizures a day since adm. Percent of energy/protein needs met: 0%/0% Burn Absent Trauma Absent Current % PO Negligible #1 Nutrition Diagnosis Inadequate oral intake Etiology NPO status As Evidenced by Signs and Symptoms no consumption of food since due to seizure activity Is patient on ventilator? No Is Patient Ambulatory and/or Out of Bed Yes REE-([facility] or-ambulatory/OOB) [ 2223.000 NUTR.MSJOOB] Kcal/Kg value to use for calculation 18 Approximate Energy Requirements Using 1962 kcal/Kg Calculation Used for Recommendations Kcal/kg Additional Notes PRO: 0.8-1 g/kg AdjBW of 81 kg (65-81 g/kg) Nutrition Intervention Change Diet Order: Advance diet when medically feasible Goal #1 Advance diet Follow-Up By: 12/06/18 Additional Comments f/u: diet advancement
[2018-12-05] MEDS: VIMPAT 200 MG in NACL 0.9% 100 ML IV SCH (16:20)
[2018-12-05] MEDS: KEPPRA 1,000 MG/NS 0.75% 100ML 1,000 MG/100 ML BAG IV SCH (16:21)
[2018-12-05] MEDS: K-DUR PO SCH ×2 (16:37→19:48)
[2018-12-05] MEDS: ZOFRAN IV PRN (17:55)
[2018-12-05] MEDS: SINGULAIR PO SCH (19:45)
[2018-12-05] MEDS: KEPPRA PO SCH (21:30)
[2018-12-05] MEDS: VIMPAT PO SCH (21:31)
[2018-12-05] MEDS: TYLENOL PO PRN (21:40)
[2018-12-06] MEDS: K-DUR PO SCH ×2 (01:07→13:12)
[2018-12-06] MEDS: ATIVAN IV PRN (01:30)
[2018-12-06] MEDS: APRESOLINE PO SCH ×2 (09:02→13:12)
[2018-12-06] MEDS: COREG PO SCH (09:04)
[2018-12-06] MEDS: HALFPRIN EC PO SCH (09:05)
[2018-12-06] MEDS: COZAAR PO SCH (09:05)
[2018-12-06] MEDS: SODIUM CHLORIDE FLUSH SYRINGE 10 ML IV SCH (09:06)
[2018-12-06] MEDS: VIMPAT PO SCH (09:06)
[2018-12-06] MEDS: PROCARDIA XL PO SCH (09:06)
--- NOTE | 2018-12-06 10:49 | Discharge Summary ---
Providers - Providers Date of Admission: 11/28/18 17:26 Date of discharge: 12/06/18 Attending physician: ЕЛЕНА CARD 11/29/18 08:01 Consult to Physician [CONS] Routine Comment: Consulting Provider: LINDSEY GALLO Physician Instructions: Reason For Exam: Chest pain, Cardiomyopathy, CHF 11/30/18 18:41 Consult to Physician [CONS] Routine Comment: Consulting Provider: NAGI DUGAN Physician Instructions: Reason For Exam: Seizures multiples 12/01/18 08:40 Consult to Physician [CONS] Routine Comment: Consulting Provider: GABI SCHWARTZ Physician Instructions: Reason For Exam: seizures [facility] Reason for admission: sz Condition: Fair Hospital course: Patient is 48-year-old with hypertension, cardiomyopathy,seizure disorder, morbid obesity who presented with chest pain. Stress test was done and found to be negative. Cardiology saw the patient in consultation and recommended medical therapy for mild nonischemic cardiomyopathy. Patient's cardiac status remained stable during hospitalization. Etiology of chest pain was secondary to GERD. She was about to be discharged home when she developed breakthrough seizures. She was given Ativan. She had repeated seizures so was transferred to [facility]. Patient had been on Keppra and valproic acid at home. The Keppra dose was increased from 500 [id number] mg IV twice a day. valproic acid was continued same dose but given IV. Vimpat was added in ED. She was seen and evaluated by Dr. schwartz. She continued to have 2-3 seizures every day. MRI completed was unremarkable and showed no acute findings. 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 Neurology felt patient could be discharged home. Patient had no further seizure activity for greater than 24 hours prior to discharge. Dedicated discharge time 32 minutes. Disposition: - TO HOME OR SELFCARE Time spent for discharge: 32 - Discharge Diagnoses (1) Acute chest pain Status: Acute (2) Anemia Status: Chronic Qualifiers: Anemia type: unspecified type Qualified Code(s): D64.9 - Anemia, unspecified (3) Cardiomyopathy Status: Chronic Qualifiers: Cardiomyopathy type: unspecified Qualified Code(s): I42.9 - Cardiomyopathy, unspecified (4) Generalized anxiety disorder Status: Chronic (5) Hypertension Status: Chronic Qualifiers: Hypertension type: essential hypertension Qualified Code(s): I10 - Essential (primary) hypertension (6) Seizure disorder Status: Chronic (7) Breakthrough seizure Status: Acute (8) GERD (gastroesophageal reflux disease) Status: Acute Qualifiers: Esophagitis presence: without esophagitis Qualified Code(s): K21.9 - Gastro-esophageal reflux disease without esophagitis Core Measure Documentation - Palliative Care Palliative Care/ Comfort Measures: Not Applicable - Core Measures Any of the following diagnoses?: none Exam - Constitutional Vitals: Temp Pulse Resp BP Pulse Ox 97.6 F 90 20 156/107 98 12/06/18 08:00 12/06/18 09:05 12/06/18 09:00 12/06/18 09:05 12/06/18 09:00 General appearance: Present: no acute distress, well-nourished - EENT Eyes: Present: PERRL ENT: hearing intact, clear oral mucosa - Neck Neck: Present: supple, normal ROM - Respiratory Respiratory effort: normal Respiratory: bilateral: CTA - Cardiovascular Heart Sounds: Present: S1 & S2. Absent: rub, click - Extremities Extremities: pulses symmetrical, No edema Peripheral Pulses: within normal limits - Abdominal General gastrointestinal: Present: soft, non-tender, non-distended, normal bowel sounds Female genitourinary: Present: normal - Integumentary Integumentary: Present: clear, warm, dry - Musculoskeletal Musculoskeletal: gait normal, strength equal bilaterally - Psychiatric Psychiatric: appropriate mood/affect, intact judgment & insight - Neurologic Neurologic: CNII-XII intact, moves all extremities Plan Activity: advance as tolerated, no driving until cleared by PCP Weight Bearing Status: Weight Bear as Tolerated Diet: regular Follow up with: KELLIE SIBLEY MD [Primary Care Provider] - 3-5 Days Prescriptions: Aspirin [Adult Aspirin] 81 mg PO QDAY #30 tablet. hydrALAZINE [Apresoline TAB] 25 mg PO TID #90 tablet clonazePAM [Clonazepam] 0.5 mg PO BID #20 tablet Carvedilol [Coreg] 6.25 mg PO BID #60 tablet Losartan [Cozaar] 100 mg PO QDAY #30 tablet Divalproex [Depakote Dr] 1,000 mg PO TID #90 tablet levETIRAcetam [Keppra TAB] 1,000 mg PO BID #60 tab NIFEdipine [Nifedipine ER] 90 mg PO DAILY #30 tablet.er Famotidine [Pepcid] 20 mg PO BID #60 tablet Montelukast [Singulair] 10 mg PO QPM #30 tablet Lacosamide [Vimpat] 200 mg PO Q12HR #60 tablet
[2018-12-06] MEDS: KEPPRA PO SCH (13:11)
[2018-12-06 13:13] VITALS: BP 122/88
== END 2018-12-06 13:39 | disposition home or self-care (01) | DRG 100 ==
LOC: ED 11:19 → 4A 15:29 → OBSVTOIN 17:26 → 4A 20:10 → IMCU 11-30 23:02
PROVIDERS: ADMIT Internal Medicine; ATTEND Hospitalist
DX: G40.409 Other generalized epilepsy and epileptic syndromes, not intractable, without status epilepticus (principal); I50.43 Acute on chronic combined systolic (congestive) and diastolic (congestive) heart failure; K21.9 Gastro-esophageal reflux disease without esophagitis; I11.0 Hypertensive heart disease with heart failure; J44.9 Chronic obstructive pulmonary disease, unspecified; G43.909 Migraine, unspecified, not intractable, without status migrainosus; I42.9 Cardiomyopathy, unspecified; I27.20 Pulmonary hypertension, unspecified; I42.0 Dilated cardiomyopathy; E66.01 Morbid (severe) obesity due to excess calories; D64.9 Anemia, unspecified; F41.1 Generalized anxiety disorder; Z68.41 Body mass index [BMI] 40.0-44.9, adult; Z90.710 Acquired absence of both cervix and uterus
CPT/HCPCS: 36415; 70551; 71045; 78452; 78582; 80048; 80053; 80164; 82962; 83036; 83880; 84484; 85025; 85027; 85379; 87116; 93005; 93010; 93017; 93970; 96374; 96375; G0378; A9502; A9540; A9558; C9254; J0360; J1170; J1200; J1940; J1953; J2060; J2405; J2785; J7042

== ENCOUNTER 2019-01-02 14:26 | Outpatient (CLI) | payer MEDICAID ==
--- NOTE | 2019-01-04 07:15 | Vascular Lab Report ---
PROCEDURE: US LEFT LOWER EXTREMITY VENOUS DUPLEX DOPPLER TECHNIQUE: Duplex Doppler ultrasound of the LEFT common and superficial femoral, popliteal, posterio r tibial, and proximal deep femoral and greater saphenous veins was attempted. Emery scale imaging wit h and without compression, spectral waveform analysis with and without augmentation, and color flow D oppler were employed. CPT 13591-ML HISTORY: Pain and swelling COMPARISONS: None . FINDINGS: Deep Venous Thrombus: None . Superficial Venous Thrombus: None . Venous valvular incompetence: None . Soft tissue abnormality: None . Other: None . IMPRESSION: No evidence of deep venous thrombosis . This document is electronically signed by Nahid Byrne MD., Jan 04 2019 07:13:04 AM ET
== END 2019-01-02 14:27 | disposition home or self-care (01) ==
LOC: VAS 14:26 → US 14:26 → VAS 14:27
PROVIDERS: ATTEND General Practice
DX: M79.662 Pain in left lower leg (principal); I11.0 Hypertensive heart disease with heart failure; I50.9 Heart failure, unspecified; E78.00 Pure hypercholesterolemia, unspecified; J44.9 Chronic obstructive pulmonary disease, unspecified; K21.9 Gastro-esophageal reflux disease without esophagitis; Z90.710 Acquired absence of both cervix and uterus

== ENCOUNTER 2019-07-14 16:19 | Emergency (ER) | payer MEDICAID ==
[2019-07-14] MEDS ORDERED: ASPIRIN 325 MG TAB PO ONE (16:44)
[2019-07-14] MEDS ORDERED: NITROGLYCERIN 0.4 MG TAB SUBL SL PRN (16:44)
--- NOTE | 2019-07-14 17:01 | XRay Report ---
CHEST 1 VIEW 07/14/2019 4:41 PM INDICATION / CLINICAL INFORMATION: Chest Pain. COMPARISON: None available. FINDINGS: SUPPORT DEVICES: None. HEART / MEDIASTINUM: No significant abnormality. LUNGS / PLEURA: No significant pulmonary or pleural abnormality. No pneumothorax. ADDITIONAL FINDINGS: No significant additional findings. IMPRESSION: 1. No acute findings. Signer Name: Musa Higuera MD Signed: 07/14/2019 4:56 PM Workstation Name: [id number]
[2019-07-14 17:05] LABS: Basophils % (Auto) 0.7 % (0.0-1.8); Eosinophils # (Auto) 0.2 K/mm3 (0.0-0.4); Eosinophils % (Auto) 2.7 % (0.0-4.3); Hematocrit 37.3 % (30.3-42.9); Hemoglobin 12.7 gm/dl (10.1-14.3); Mean Corpuscular HGB Conc 34 % (30-34); Mean Corpuscular Volume 92 fl (79-97); Monocytes # (Auto) 0.5 K/mm3 (0.0-0.8); Monocytes % (Auto) 8.3 % (0.0-7.3); Platelet Count 171 K/mm3 (140-440); Red Blood Count 4.04 M/mm3 (3.65-5.03); Red Cell Distribution Width 13.9 % (13.2-15.2)
[2019-07-14] MEDS: ONDANSETRON 4 MG/2 ML INJ IV ONE ×3 (17:10→18:23)
[2019-07-14 17:27] LABS: INR 1.01 (0.87-1.13)
[2019-07-14 17:28] LABS: BUN/Creatinine Ratio 18; Blood Urea Nitrogen 14 mg/dL (7-17); Calcium 8.9 mg/dL (8.4-10.2); Hemolysis Index 14; Partial Thromboplastin Time 29.2 Sec. (24.2-36.6)
[2019-07-14 20:25] VITALS: BP 171/99
--- NOTE | 2019-07-14 20:36 | Emergency Department Report ---
ED Chest Pain HPI - General Chief Complaint: Chest Pain Stated Complaint: CHEST PAIN Time Seen by Provider: 07/14/19 16:43 Source: patient Mode of arrival: Ambulatory Limitations: No Limitations - History of Present Illness Initial Comments: Patient is a 49-year-old female with poorly controlled hypertension who is presenting with chest discomfort. Patient states the chest pain as a tight sensation and is present at rest. She states been worsening throughout the week. Patient states is worse in the morning when she wakes up and is associa fam with some nausea and mild shortness of breath. patient states that she has been eating less because food makes her nauseous. Patient also states she has a mild dry cough but does not feels that she has any other cold symptoms. Cough is nonproductive. Patient had a thallium stress test earlier this year which showed mild to moderate left ventricular systolic dysfunction with EF of 40% but there are no ischemic changes at that time. Patient states is no exertional component to her chest discomfort. Patient is on multiple blood pressure medications and states she is compliant with these and also is compliant with a low-sodium diet. Severity scale (0 -10): 8 - Related Data Home Medications Medication Instructions Recorded Confirmed Last Taken Divalproex Sodium [Depakote] 1,000 mg PO TID 09/19/17 11/28/18 Unknown FLUoxetine HCL [FLUoxetine] 20 mg PO DAILY 04/19/18 11/28/18 Unknown Furosemide [Lasix] 20 mg PO DAILY 07/31/18 11/28/18 Unknown Potassium Chloride [K-Dur] 20 meq PO QDAY 07/31/18 11/28/18 Unknown Spironolactone [Aldactone] 50 mg PO QDAY 07/31/18 11/28/18 Unknown Doxazosin Mesylate [Cardura] 2 mg PO DAILY 11/28/18 11/28/18 Unknown Ferrous Sulfate [Feosol 325 MG tab] 325 mg PO QDAY 11/28/18 11/28/18 Unknown Losartan/Hydrochlorothiazide 1 each PO DAILY 11/28/18 11/28/18 Unknown [Losartan-Hctz 100-25 mg Tab] Previous Rx's Medication Instructions Recorded Last Taken Type cloNIDine [Catapres] 0.2 mg PO BID #60 tablet 04/20/18 Unknown Rx ALBUTEROL Inhaler (OR & NICU) 2 puff IH Q4HR PRN #1 inhalation 07/31/18 Unknown Rx [ProAir HFA Inhaler] Famotidine [Pepcid] 20 mg PO BID #60 tablet 11/30/18 Unknown Rx Aspirin [Adult Aspirin] 81 mg PO QDAY #30 tablet.dr 12/06/18 Unknown Rx Carvedilol [Coreg] 6.25 mg PO BID #60 tablet 12/06/[address] [Chad Dr] 1,000 mg PO TID #90 tablet 12/06/18 Unknown Rx Lacosamide [Vimpat] 200 mg PO Q12HR #60 tablet 12/06/18 Unknown Rx Losartan [Cozaar] 100 mg PO QDAY #30 tablet 12/06/18 Unknown Rx Montelukast [Singulair] 10 mg PO QPM #30 tablet 12/06/18 Unknown Rx NIFEdipine [Nifedipine ER] 90 mg PO DAILY #30 tablet.er 12/06/18 Unknown Rx clonazePAM [Clonazepam] 0.5 mg PO BID #20 tablet 12/06/18 Unknown Rx hydrALAZINE [Apresoline TAB] 25 mg PO TID #90 tablet 12/06/18 Unknown Rx levETIRAcetam [Keppra TAB] 1,000 mg PO BID #60 tab 12/06/18 Unknown Rx Nitroglycerin (Nf) [Nitrostat] 0.3 mg SL PRN #20 tablet 07/14/19 Unknown Rx Ondansetron [Zofran Odt] 4 mg PO Q8HR #10 tab.rapdis 07/14/19 Unknown Rx Pantoprazole [Protonix] 40 mg PO QDAY #30 tablet 07/14/19 Unknown Rx Allergies Allergy/AdvReac Type Severity Reaction Status Date / Time Iodinated Contrast Media Allergy Rash Verified 11/14/15 22:10 [Iodinated Contrast Media - IV Dye] lisinopril Allergy Swelling Verified 11/14/15 22:10 morphine Allergy Rash Verified 11/14/15 22:10 Heart Score - HEART Score History: Slightly suspicious EKG: Non-specific Age: 45-65 Risk factors: 1-2 risk factors Troponin: < normal limit HEART Score: 3 ED Review of Systems ROS: Stated complaint: CHEST PAIN Other details as noted in HPI Comment: All other systems reviewed and negative ED Past Medical Hx - Past Medical History Hx Hypertension: Yes Hx Heart Attack/AMI: No Hx Congestive Heart Failure: Yes Hx Diabetes: No Hx Deep Vein Thrombosis: No Hx Pulmonary Embolism: No Hx GERD: Yes Hx Sickle Cell Disease: No Hx Headaches / Migraines: Yes Hx Seizures: Yes Hx Asthma: Yes Hx COPD: Yes Hx Tuberculosis: No Hx Dementia: No Hx HIV: No - Surgical History Hx Coronary Stent: No Hx Open Heart Surgery: No Hx Pacemaker: No Hx Internal Defibrillator: No Hx Cholecystectomy: No Hx Appendectomy: No Hx Breast Surgery: Yes (Breast reduction) Additional Surgical History: hyst - Social History Smoking Status: Never Smoker Substance Use Type: None - Medications Home Medications: Home Medications Medication Instructions Recorded Confirmed Last Taken Type Divalproex Sodium [Depakote] 1,000 mg PO TID 09/19/17 11/28/18 Unknown History FLUoxetine HCL [FLUoxetine] 20 mg PO DAILY 04/19/18 11/28/18 Unknown History cloNIDine [Catapres] 0.2 mg PO BID #60 tablet 04/20/18 11/28/18 Unknown Rx ALBUTEROL Inhaler (OR & NICU) 2 puff IH Q4HR PRN #1 inhalation 07/31/18 11/28/18 Unknown Rx [ProAir HFA Inhaler] Furosemide [Lasix] 20 mg PO DAILY 07/31/18 11/28/18 Unknown History Potassium Chloride [K-Dur] 20 meq PO QDAY 07/31/18 11/28/18 Unknown History Spironolactone [Aldactone] 50 mg PO QDAY 07/31/18 11/28/18 Unknown History Doxazosin Mesylate [Cardura] 2 mg PO DAILY 11/28/18 11/28/18 Unknown History Ferrous Sulfate [Feosol 325 MG tab] 325 mg PO QDAY 11/28/18 11/28/18 Unknown History Losartan/Hydrochlorothiazide 1 each PO DAILY 11/28/18 11/28/18 Unknown History [Losartan-Hctz 100-25 mg Tab] Famotidine [Pepcid] 20 mg PO BID #60 tablet 11/30/18 Unknown Rx Aspirin [Adult Aspirin] 81 mg PO QDAY #30 tablet. 12/06/18 Unknown Rx Carvedilol [Coreg] 6.25 mg PO BID #60 tablet 12/06/18 Unknown Rx Divalproex [Chad Haynes] 1,000 mg PO TID #90 tablet 12/06/18 Unknown Rx Lacosamide [Vimpat] 200 mg PO Q12HR #60 tablet 12/06/18 Unknown Rx Losartan [Cozaar] 100 mg PO QDAY #30 tablet 12/06/18 Unknown Rx Montelukast [Singulair] 10 mg PO QPM #30 tablet 12/06/18 Unknown Rx NIFEdipine [Nifedipine ER] 90 mg PO DAILY #30 tablet.er 12/06/18 Unknown Rx clonazePAM [Clonazepam] 0.5 mg PO BID #20 tablet 12/06/18 Unknown Rx hydrALAZINE [Apresoline TAB] 25 mg PO TID #90 tablet 12/06/18 Unknown Rx levETIRAcetam [Keppra TAB] 1,000 mg PO BID #60 tab 12/06/18 Unknown Rx Nitroglycerin (Nf) [Nitrostat] 0.3 mg SL PRN #20 tablet 07/14/19 Unknown Rx Ondansetron [Zofran Odt] 4 mg PO Q8HR #10 tab.rapdis 07/14/19 Unknown Rx Pantoprazole [Protonix] 40 mg PO QDAY #30 tablet 07/14/19 Unknown Rx ED Physical Exam - General Limitations: No Limitations General appearance: alert, in no apparent distress - Head Head exam: Present: atraumatic, normocephalic - Eye Eye exam: Present: normal appearance, PERRL, EOMI - ENT ENT exam: Present: mucous membranes moist - Neck Neck exam: Present: normal inspection - Respiratory Respiratory exam: Present: normal lung sounds bilaterally. Absent: respiratory distress, wheezes, rales, rhonchi - Cardiovascular Cardiovascular Exam: Present: regular rate, normal rhythm, normal heart sounds. Absent: systolic murmur, diastolic murmur, rubs, gallop - GI/Abdominal GI/Abdominal exam: Present: soft, normal bowel sounds. Absent: distended, tenderness, guarding, rebound - Extremities Exam Extremities exam: Present: normal inspection - Back Exam Back exam: Present: normal inspection - Neurological Exam Neurological exam: Present: alert, oriented X3 - Psychiatric Psychiatric exam: Present: normal affect, normal mood - Skin Skin exam: Present: warm, dry, intact, normal color. Absent: rash ED Course Vital Signs 07/14/19 07/14/19 07/14/19 16:24 17:10 17:33 Temperature 98.2 F Pulse Rate 82 71 84 Respiratory 18 16 Rate Blood Pressure 214/141 168/109 Blood Pressure 155/89 [Left] O2 Sat by Pulse 97 96 Oximetry 07/14/19 07/14/19 18:13 20:22 Temperature 97.9 F Pulse Rate 97 H 78 Respiratory 16 18 Rate Blood Pressure Blood Pressure 149/92 171/99 [Left] O2 Sat by Pulse 94 96 Oximetry DEVIN score - Devin Score Age > 65: (0) No Aspirin use within the Past 7 Days: (1) Yes 3 or more CAD Risk Factors: (0) No 2 or more Angina events in past 24 hrs: (1) Yes Known CAD with more than 50% Stenosis: (0) No Elevated Cardiac Markers: (0) No ST Deviation Greater than 0.5mm: (0) No DEVIN Score: 2 ED Medical Decision Making - Lab Data Result diagrams: 07/14/19 16:52 07/14/19 16:52 Lab Results 07/14/19 07/14/19 07/14/19 Range/Units 16:52 16:52 16:52 WBC 5.9 (4.5-11.0) K/mm3 RBC 4.04 (3.65-5.03) M/mm3 Hgb 12.7 (10.1-14.3) gm/dl Hct 37.3 (30.3-42.9) % MCV 92 (79-97) fl MCH 31 (28-32) pg MCHC 34 (30-34) % RDW 13.9 (13.2-15.2) % Plt Count 171 (140-440) K/mm3 Lymph % (Auto) 34.0 (13.4-35.0) % [place] % (Auto) 8.3 H (0.0-7.3) % Eos % (Auto) 2.7 (0.0-4.3) % Baso % (Auto) 0.7 (0.0-1.8) % Lymph # 2.0 (1.2-5.4) K/mm3 [place] # 0.5 (0.0-0.8) K/mm3 Eos # 0.2 (0.0-0.4) K/mm3 Baso # 0.0 (0.0-0.1) K/mm3 Seg Neutrophils % 54.3 (40.0-70.0) % Seg Neutrophils # 3.2 (1.8-7.7) K/mm3 PT 13.2 (12.2-14.9) Sec. INR 1.01 (0.87-1.13) APTT 29.2 (24.2-36.6) Sec. Sodium 140 (137-145) mmol/L Potassium 4.4 (3.6-5.0) mmol/L Chloride 102.6 (98-107) mmol/L Carbon Dioxide 26 (22-30) mmol/L Anion Gap 16 mmol/L BUN 14 (7-17) mg/dL Creatinine 0.8 (0.7-1.2) mg/dL Estimated GFR > 60 ml/min BUN/Creatinine Ratio 18 % Glucose 93 (65-100) mg/dL Calcium 8.9 (8.4-10.2) mg/dL Troponin T < 0.010 (0.00-0.029) ng/mL NT-Pro-B Natriuret Pep (0-450) pg/mL 07/14/19 07/14/19 Range/Units 16:52 18:49 WBC (4.5-11.0) K/mm3 RBC (3.65-5.03) M/mm3 Hgb (10.1-14.3) gm/dl Hct (30.3-42.9) % MCV (79-97) fl MCH (28-32) pg MCHC (30-34) % RDW (13.2-15.2) % Plt Count (140-440) K/mm3 Lymph % (Auto) (13.4-35.0) % [place] % (Auto) (0.0-7.3) % Eos % (Auto) (0.0-4.3) % Baso % (Auto) (0.0-1.8) % Lymph # (1.2-5.4) K/mm3 [place] # (0.0-0.8) K/mm3 Eos # (0.0-0.4) K/mm3 Baso # (0.0-0.1) K/mm3 Seg Neutrophils % (40.0-70.0) % Seg Neutrophils # (1.8-7.7) K/mm3 PT (12.2-14.9) Sec. INR (0.87-1.13) APTT (24.2-36.6) Sec. Sodium (137-145) mmol/L Potassium (3.6-5.0) mmol/L Chloride (98-107) mmol/L Carbon Dioxide (22-30) mmol/L Anion Gap mmol/L BUN (7-17) mg/dL Creatinine (0.7-1.2) mg/dL Estimated GFR ml/min BUN/Creatinine Ratio % Glucose (65-100) mg/dL Calcium (8.4-10.2) mg/dL Troponin T < 0.010 (0.00-0.029) ng/mL NT-Pro-B Natriuret Pep 286.2 (0-450) pg/mL - EKG Data -: EKG Interpreted by Tx - EKG Data 07/14/19 20:38 EKG shows sinus rhythm rate of 71 normal axis normal mental. There is evidence of LVH. Patient has T-wave inversions in lateral leads but no ST segment elevation or depressions. Time of interpretation is 1630 - Radiology Data CHEST 1 VIEW 07/14/2019 4:41 PM INDICATION / CLINICAL INFORMATION: Chest Pain. COMPARISON: None available. FINDINGS: SUPPORT DEVICES: None. HEART / MEDIASTINUM: No significant abnormality. LUNGS / PLEURA: No significant pulmonary or pleural abnormality. No pneumothorax. ADDITIONAL FINDINGS: No sign ificant additional findings. IMPRESSION: 1. No acute findings. Signer Name: Musa Higuera MD Signed: 07/14/2019 4:56 PM Workstation Name: [id number] - Medical Decision Making Patient's had 2 negative troponins here in the emergency department as well as a recent stress test which was negative. Patient is stating that she has chest discomfort but also nausea which is worse in the mornings. The patient likely with GERD however with her blood pressure being so significantly elevated patient still should follow up with her supply chain design manager. Patient states she'll follow-up suite. Patient was started on medications for GERD as well. Patient states she's been drinking Pepto-Bismol all week and will give medications for symptomatic relief. Critical care attestation.: If time is entered above; I have spent that time in minutes in the direct care of this critically ill patient, excluding procedure time. ED Disposition Clinical Impression: Atypical chest pain, Nausea, GERD (gastroesophageal reflux disease) Disposition: - TO HOME OR SELFCARE Is pt being admited?: No Does the pt Need Aspirin: No Condition: Stable Instructions: Chest Pain (ED), Gastroesophageal Reflux Disease (ED) Referrals: HAKAN SMITH MD [Staff Physician] - 3-5 Days [facility] [Provider Group] - 3-5 Days Time of Disposition: 20:41
== END 2019-07-14 21:15 | disposition home or self-care (01) ==
LOC: ED 16:19
DX: K21.9 Gastro-esophageal reflux disease without esophagitis (principal); R07.89 Other chest pain; I11.0 Hypertensive heart disease with heart failure; I50.9 Heart failure, unspecified; G43.909 Migraine, unspecified, not intractable, without status migrainosus; J44.9 Chronic obstructive pulmonary disease, unspecified; Z98.890 Other specified postprocedural states; Z79.899 Other long term (current) drug therapy; Z88.5 Allergy status to narcotic agent; Z91.041 Radiographic dye allergy status; Z88.8 Allergy status to other drugs, medicaments and biological substances
CPT/HCPCS: 36415; 71045; 80048; 83880; 84484; 85025; 85610; 85730; 93005; 93010; 96374; 96375; 99284; J2405

== ENCOUNTER 2019-10-18 11:10 | Inpatient (IN) | payer MEDICAID ==
--- NOTE | 2019-10-18 12:19 | Emergency Department Report ---
HPI - General Chief Complaint: Chest Pain Time Seen by Provider: 10/18/19 12:04 - HPI HPI: Room 9 The patient is a 49-year-old female presenting with a chief complaint of chest pain. Patient states her symptoms began 3 days ago with intermittent pain in the left substernal chest and left upper quadrant of the abdomen. Patient describes the pain as sharp and burning at times. Patient admits to shortness of breath and diaphoresis with her pain. Patient admits to nausea vomiting with her chest pain. Patient states she is used Zantac and Pepto-Bismol but has not helped. Patient currently gives her pain score of 8/10. Patient states her last stress test occurred approximately 6 months ago but her last cardiac catheterization occurred approximately 20 years ago. ED Past Medical Hx - Past Medical History Hx Hypertension: Yes Hx Congestive Heart Failure: Yes Hx GERD: Yes Hx Headaches / Migraines: Yes Hx Seizures: Yes Hx Asthma: Yes Hx COPD: Yes - Surgical History Hx Breast Surgery: Yes (Breast reduction) Additional Surgical History: hyst - Family History Family history: no significant - Social History Smoking Status: Never Smoker Substance Use Type: None - Medications Home Medications: Home Medications Medication Instructions Recorded Confirmed Last Taken Type Divalproex Sodium [Depakote] 1,000 mg PO TID 09/19/17 11/28/18 Unknown History FLUoxetine HCL [FLUoxetine] 20 mg PO DAILY 04/19/18 11/28/18 Unknown History cloNIDine [Catapres] 0.2 mg PO BID #60 tablet 04/20/18 11/28/18 Unknown Rx Albuterol INH(or & Nicu Only) 2 puff IH Q4HR PRN #1 inhalation 07/31/18 11/28/18 Unknown Rx [ProAir HFA Inhaler] Furosemide [Lasix] 20 mg PO DAILY 07/31/18 11/28/18 Unknown History Potassium Chloride [K-Dur] 20 meq PO QDAY 07/31/18 11/28/18 Unknown History Spironolactone [Aldactone] 50 mg PO QDAY 07/31/18 11/28/18 Unknown History Doxazosin Mesylate [Cardura] 2 mg PO DAILY 11/28/18 11/28/18 Unknown History Ferrous Sulfate [Feosol 325 MG tab] 325 mg PO QDAY 11/28/18 11/28/18 Unknown History Losartan/Hydrochlorothiazide 1 each PO DAILY 11/28/18 11/28/18 Unknown History [Losartan-Hctz 100-25 mg Tab] Famotidine [Pepcid] 20 mg PO BID #60 tablet 11/30/18 Unknown Rx Aspirin [Adult Aspirin] 81 mg PO QDAY #30 tablet. 12/06/18 Unknown Rx Divalproex [Chad Haynes] 1,000 mg PO TID #90 tablet 12/06/18 Unknown Rx Lacosamide [Vimpat] 200 mg PO Q12HR #60 tablet 12/06/18 Unknown Rx Losartan [Cozaar] 100 mg PO QDAY #30 tablet 12/06/18 Unknown Rx Montelukast [Singulair] 10 mg PO QPM #30 tablet 12/06/18 Unknown Rx NIFEdipine [Nifedipine ER] 90 mg PO DAILY #30 tablet.er 12/06/18 Unknown Rx carvediloL [Coreg] 6.25 mg PO BID #60 tablet 12/06/18 Unknown Rx clonazePAM [Clonazepam] 0.5 mg PO BID #20 tablet 12/06/18 Unknown Rx hydrALAZINE [Apresoline TAB] 25 mg PO TID #90 tablet 12/06/18 Unknown Rx levETIRAcetam [Keppra TAB] 1,000 mg PO BID #60 tab 12/06/18 Unknown Rx Nitroglycerin (Nf) [Nitrostat] 0.3 mg SL PRN #20 tablet 07/14/19 Unknown Rx Ondansetron [Zofran Odt] 4 mg PO Q8HR #10 tab.rapdis 07/14/19 Unknown Rx Pantoprazole [Protonix] 40 mg PO QDAY #30 tablet 07/14/19 Unknown Rx ED Review of Systems ROS: Stated complaint: CHEST PAIN/N/V/ABD PAIN Other details as noted in HPI Constitutional: diaphoresis Eyes: denies: eye pain ENT: denies: throat pain Respiratory: shortness of breath Cardiovascular: chest pain Endocrine: no symptoms reported Gastrointestinal: abdominal pain, nausea, vomiting Genitourinary: denies: dysuria Musculoskeletal: denies: back pain Neurological: denies: headache Physical Exam - Physical Exam Vital Signs: Vital Signs 10/18/19 10/18/19 11:25 12:00 Temperature 98.0 F Pulse Rate 66 62 Respiratory 20 17 Rate Blood Pressure 119/86 Blood Pressure 123/81 [Left] O2 Sat by Pulse 98 98 Oximetry Physical Exam: GEN: WD WN female lying on stretcher not appear to be in acute distress lying on stretcher in NAD HEENT: NCAT, EOMI NECK: trachea midline PULM: CTA bilat. No resp distress noted CV: rrr no m/r/g ABD: Soft. Tenderness to palpation in the left upper quadrant and left lower quadrant. SKIN: no diaphoresis NEURO: GCS 15 MUSCULOSKELETAL: No evidence of acute injury ED Course Vital Signs 10/18/19 10/18/19 11:25 12:00 Temperature 98.0 F Pulse Rate 66 62 Respiratory 20 17 Rate Blood Pressure 119/86 Blood Pressure 123/81 [Left] O2 Sat by Pulse 98 98 Oximetry ED Medical Decision Making - Lab Data Result diagrams: 10/18/19 12:28 10/18/19 12:28 Laboratory Tests 10/18/19 10/18/19 10/18/19 12:28 12:28 12:28 WBC 5.3 RBC 4.30 Hgb 12.8 Hct 38.2 MCV 89 MCH 30 MCHC 33 RDW 13.2 Plt Count 152 Lymph % (Auto) 39.6 H [place] % (Auto) 7.8 H Eos % (Auto) 2.6 Baso % (Auto) 0.9 Lymph # 2.1 [place] # 0.4 Eos # 0.1 Baso # 0.0 Seg Neutrophils % 49.1 Seg Neutrophils # 2.6 PT 13.4 INR 1.01 APTT 25.3 D-Dimer 230.08 Sodium Potassium Chloride Carbon Dioxide Anion Gap BUN Creatinine Estimated GFR BUN/Creatinine Ratio Glucose Calcium Total Bilirubin AST ALT Alkaline Phosphatase Troponin T < 0.010 Total Protein Albumin Albumin/Globulin Ratio Lipase Valproic Acid 10/18/19 10/18/19 12:28 12:28 WBC RBC Hgb Hct MCV MCH MCHC RDW Plt Count Lymph % (Auto) [place] % (Auto) Eos % (Auto) Baso % (Auto) Lymph # [place] # Eos # Baso # Seg Neutrophils % Seg Neutrophils # PT INR APTT D-Dimer Sodium 139 Potassium 4.1 Chloride 97.8 L Carbon Dioxide 25 Anion Gap 20 BUN 10 Creatinine 1.1 Estimated GFR > 60 BUN/Creatinine Ratio 9 Glucose 122 H Calcium 8.6 Total Bilirubin 0.40 AST 22 ALT 21 Alkaline Phosphatase 65 Troponin T Total Protein 7.0 Albumin 4.1 Albumin/Globulin Ratio 1.4 Lipase 14 Valproic Acid 85.9 - EKG Data -: EKG Interpreted by Me EKG shows normal: sinus rhythm Rate: normal - EKG Data When compared to previous EKG there are: no significant change Interpretation: unchanged when compared t (07/14/2019) - Radiology Data Radiology results: pending (CT abdomen pelvis), image reviewed (Chest x-ray) interpreted by me: Chest x-ray-no focal infiltrates, no pneumothorax - Differential Diagnosis ACS, PE, pericarditis, GERD, gastritis Critical care attestation.: If time is entered above; I have spent that time in minutes in the direct care o f this critically ill patient, excluding procedure time. ED Disposition Clinical Impression: Chest pain, Abdominal pain Disposition: 09 OP ADMIT IP TO THIS HOSP Is pt being admited?: Yes Does the pt Need Aspirin: Yes Condition: Stable Instructions: Chest Pain (ED) Time of Disposition: 14:49 (Hospitalist notified (Dr Barrow))
[2019-10-18] MEDS ORDERED: fentaNYL 100 MCG/2 ML INJ IV ONE (12:26)
[2019-10-18] MEDS ORDERED: NITROGLYCERIN 2% OINT 1 GM TP ONE (12:26)
[2019-10-18] MEDS ORDERED: ASPIRIN 325 MG TAB PO ONE (12:26)
[2019-10-18] MEDS ORDERED: ONDANSETRON 4 MG/2 ML INJ IV ONE (12:26)
[2019-10-18 12:38] LABS: Basophils % (Auto) 0.9 % (0.0-1.8); Eosinophils # (Auto) 0.1 K/mm3 (0.0-0.4); Eosinophils % (Auto) 2.6 % (0.0-4.3); Hematocrit 38.2 % (30.3-42.9); Hemoglobin 12.8 gm/dl (10.1-14.3); Lymphocytes # (Auto) 2.1 K/mm3 (1.2-5.4); Lymphocytes % (Auto) 39.6 % (13.4-35.0); Mean Corpuscular HGB Conc 33 % (30-34); Mean Corpuscular Volume 89 fl (79-97); Monocytes # (Auto) 0.4 K/mm3 (0.0-0.8); Monocytes % (Auto) 7.8 % (0.0-7.3); Platelet Count 152 K/mm3 (140-440); Red Cell Distribution Width 13.2 % (13.2-15.2)
[2019-10-18 12:49] LABS: INR 1.01 (0.87-1.13)
[2019-10-18 12:50] LABS: Partial Thromboplastin Time 25.3 Sec. (24.2-36.6)
[2019-10-18 12:59] LABS: Alanine Aminotransferase 21 units/L (7-56); Albumin 4.1 g/dL (3.9-5); BUN/Creatinine Ratio 9; Blood Urea Nitrogen 10 mg/dL (7-17); Calcium 8.6 mg/dL (8.4-10.2); Hemolysis Index 11
--- NOTE | 2019-10-18 14:46 | Cat Scan Report ---
CT ABDOMEN AND PELVIS WITHOUT CONTRAST HISTORY: Left-sided abdominal pain. COMPARISON: No relevant comparative imaging. TECHNIQUE: Routine abdominal and pelvic CT exam performed without contrast. Lack of intravenous cont rast limits evaluation of the vascular and solid organs.. All CT scans at this location are performed using CT dose reduction for ALARA by means of automated exposure control. FINDINGS: CT ABDOMEN: Lung Bases: No significant abnormality. Liver: Enlarged and diffusely hypodense. The right lobe measures 18 cm in length. No liver mass. Biliary: Normal gallbladder and bile ducts. Spleen: No significant abnormality. Unenlarged. Pancreas: No significant abnormality. Adrenals: An oval smooth mixed density mass of the lateral limb of the left adrenal gland measures 2. 6 x 2.0 cm and -106 Hounsfield units in density. Normal right adrenal gland. Kidneys: The renal collecting systems and ureters are nondilated. No urinary calculus. The right kidn ey is smaller than the left with cortical irregularity. Lymphatics: No lymphadenopathy. Vasculature: No significant abnormality. Bowel/Peritoneum: No significant abnormality. No free air. No free fluid. Normal appendix. CT PELVIC: : No significant abnormality. Suspicious hysterectomy and left salpingo-oophorectomy. Normal right ovary. Lymphatics: No lymphadenopathy. Osseous Structures: No aggressive appearing osseous lesions. Additional Findings: None IMPRESSION: 1. Hepatic steatosis and hepatomegaly. 2. A benign 2.6 cm left adrenal myelolipoma. 3. Normal pelvis status post hysterectomy and left salpingo-oophorectomy. Signer Name: Homero Martinez MD Signed: 10/18/2019 2:41 PM Workstation Name: [id number]
--- NOTE | 2019-10-18 14:51 | History and Physical Report ---
History of Present Illness Chief complaint: I am hurting all up in my chest History of present illness: 49 YO Female with Obesity, HTN, COPD, seizure disorder, GERD, Obesity Hypoventilation, Asthma, Migraine Headache, Systolic CHF (EF 35%) presents to ED for evaluation. Patient states that she has experienced pain in her abdomen and chest over the past 3 days with persistent symptoms over the same timeframe. Patient states that pain is 8/10, and are intermittent, not worsened with exertion, not relieved with rest, and is associated with shortness of breath and diaphoresis. Patient transported to [facility] via private vehicle. Patient seen and evaluated in the emergency department. Lab and imaging studies reviewed. Patient found to have chest pain as well as concomitant abdominal pain. Patient placed in observation status and admitted to telemetry. Cardiology team consulted. Patient denies fever, chills, palpitations, productive cough, prolonged travel/immobility, unilateral leg swelling, bright red blood per rectum, skin rash, or recent ill contacts. Prior admission on 11/28/2018 reviewed. All medication listed at time of admission has been reconciled. Past History Past Medical History: COPD, GERD, heart failure, hypertension, migraines, seizures, other (See HPI) Past Surgical History: hysterectomy, Other (Breast reduction surgery) Social history: single. denies: smoking, alcohol abuse, prescription drug abuse Family history: diabetes, hypertension Medications and Allergies Allergies Allergy/AdvReac Type Severity Reaction Status Date / Time Iodinated Contrast Media Allergy Rash Verified 11/14/15 22:10 [Iodinated Contrast Media - IV Dye] lisinopril Allergy Swelling Verified 11/14/15 22:10 morphine Allergy Rash Verified 11/14/15 22:10 Home Medications Medication Instructions Recorded Confirmed Last Taken Type Divalproex Sodium [Depakote] 1,000 mg PO TID 09/19/17 11/28/18 Unknown History FLUoxetine HCL [FLUoxetine] 20 mg PO DAILY 04/19/18 11/28/18 Unknown History cloNIDine [Catapres] 0.2 mg PO BID #60 tablet 04/20/18 11/28/18 Unknown Rx Albuterol INH(or & Nicu Only) 2 puff IH Q4HR PRN #1 inhalation 07/31/18 11/28/18 Unknown Rx [ProAir HFA Inhaler] Furosemide [Lasix] 20 mg PO DAILY 07/31/18 11/28/18 Unknown History Potassium Chloride [K-Dur] 20 meq PO QDAY 07/31/18 11/28/18 Unknown History Spironolactone [Aldactone] 50 mg PO QDAY 07/31/18 11/28/18 Unknown History Doxazosin Mesylate [Cardura] 2 mg PO DAILY 11/28/18 11/28/18 Unknown History Ferrous Sulfate [Feosol 325 MG tab] 325 mg PO QDAY 11/28/18 11/28/18 Unknown History Losartan/Hydrochlorothiazide 1 each PO DAILY 11/28/18 11/28/18 Unknown History [Losartan-Hctz 100-25 mg Tab] Famotidine [Pepcid] 20 mg PO BID #60 tablet 11/30/18 Unknown Rx Aspirin [Adult Aspirin] 81 mg PO QDAY #30 tablet. 12/06/18 Unknown Rx Divalproex [Chad Haynes] 1,000 mg PO TID #90 tablet 12/06/18 Unknown Rx Lacosamide [Vimpat] 200 mg PO Q12HR #60 tablet 12/06/18 Unknown Rx Losartan [Cozaar] 100 mg PO QDAY #30 tablet 12/06/18 Unknown Rx Montelukast [Singulair] 10 mg PO QPM #30 tablet 12/06/18 Unknown Rx NIFEdipine [Nifedipine ER] 90 mg PO DAILY #30 tablet.er 12/06/18 Unknown Rx carvediloL [Coreg] 6.25 mg PO BID #60 tablet 12/06/18 Unknown Rx clonazePAM [Clonazepam] 0.5 mg PO BID #20 tablet 12/06/18 Unknown Rx hydrALAZINE [Apresoline TAB] 25 mg PO TID #90 tablet 12/06/18 Unknown Rx levETIRAcetam [Keppra TAB] 1,000 mg PO BID #60 tab 12/06/18 Unknown Rx Nitroglycerin (Nf) [Nitrostat] 0.3 mg SL PRN #20 tablet 07/14/19 Unknown Rx Ondansetron [Zofran Odt] 4 mg PO Q8HR #10 tab.rapdis 07/14/19 Unknown Rx Pantoprazole [Protonix] 40 mg PO QDAY #30 tablet 07/14/19 Unknown Rx Review of Systems Constitutional: no weight loss, no weight gain, no fever, no chills Ears, nose, mouth and throat: no ear pain, no ear discharge, no tinnitis Breasts: no change in shape, no swelling, no mass Cardiovascular: chest pain, no orthopnea, no palpitations, no rapid/irregular heart beat, no lightheadedness Respiratory: no cough with sputum, no excessive sputum, no shortness of breath Gastrointestinal: abdominal pain, no vomiting, no diarrhea, no coffee ground emesis Genitourinary Female: no pelvic pain, no flank pain, no menorrhagia, no dysuria, no urinary frequency, no urgency Rectal: no pain, no incontinence, no bleeding Musculoskeletal: no neck stiffness, no neck pain, no shooting leg pain, no leg n umbness/tingling Integumentary: no rash, no pruritis, no boils, no blisters Neurological: no transient paralysis, no paralysis, no weakness, no parathesias, no numbness, no tingling, no syncope Psychiatric: no anxiety, no change in sleep habits, no insomnia, no hypersomnia, no change in appetite, no change in libido, no disorientation Endocrine: no cold intolerance, no heat intolerance, no polyphagia, no excessive thirst, no polyuria, no weight change Hematologic/Lymphatic: no easy bruising, no easy bleeding, no lymphadenopathy, no lymphedema Allergic/Immunologic: no urticaria, no wheezing, no persistent infections, no anaphylaxis Exam - Constitutional Vitals: Temp Pulse Resp BP Pulse Ox 98.0 F 57 L 18 138/81 99 10/18/19 11:25 10/18/19 13:30 10/18/19 13:30 10/18/19 13:30 10/18/19 13:16 General appearance: Present: mild distress, obese - EENT Eyes: Present: PERRL ENT: hearing intact, clear oral mucosa - Neck Neck: Present: supple, normal ROM - Respiratory Respiratory effort: normal Respiratory: bilateral: CTA - Cardiovascular Heart Sounds: Present: S1 & S2. Absent: rub, click - Extremities Extremities: pulses symmetrical, No edema Peripheral Pulses: within normal limits - Abdominal General gastrointestinal: Present: soft, non-tender, non-distended, normal bowel sounds Female genitourinary: Present: normal - Integumentary Integumentary: Present: clear, warm, dry - Musculoskeletal Musculoskeletal: gait normal, strength equal bilaterally - Psychiatric Psychiatric: appropriate mood/affect, intact judgment & insight - Neurologic Neurologic: CNII-XII intact, moves all extremities Results - Labs CBC & Chem 7: 10/18/19 12:28 10/18/19 12:28 Labs: Abnormal lab results 10/18/19 10/18/19 Range/Units 12:28 12:28 Lymph % (Auto) 39.6 H (13.4-35.0) % [place] % (Auto) 7.8 H (0.0-7.3) % Chloride 97.8 L (98-107) mmol/L Glucose 122 H (65-100) mg/dL Assessment and Plan - Patient Problems (1) Chest pain Current Visit: Yes Status: Acute Qualifiers: Plan to address problem: Cardiology consulted in ED, serial cardiac enzymes, EKG, stress test from previous admission reviewed, PPI therapy, supportive care. (2) Abdominal pain Current Visit: Yes Status: Acute Plan to address problem: CT scan abdomen and pelvis, serial abdominal exams, no acute findings on CT scan of abdomen and pelvis. (3) Hypertension Current Visit: Yes Status: Acute Qualifiers: Hypertension type: essential hypertension Qualified Code(s): I10 - Essential (primary) hypertension Plan to address problem: Monitor blood pressure every shift, continue medical management. (4) CHF (congestive heart failure) Current Visit: Yes Status: Acute Qualifiers: Heart failure type: systolic Heart failure chronicity: chronic Qualified Code(s): I50.22 - Chronic systolic (congestive) heart failure Plan to address problem: Strict I's/O, daily weight, BNP, submental oxygen, afterload reduction, cardiology consulted in ED (5) Seizure disorder Current Visit: No Status: Chronic Plan to address problem: Continue medical management, seizure precautions, supportive care. (6) DVT prophylaxis Current Visit: Yes Status: Acute Plan to address problem: SCD to bilateral lower extremities while in bed, Patient is ambulatory.
[2019-10-18] MEDS: ACETAMINOPHEN 325 MG TAB PO PRN ×2 (15:55→21:02)
[2019-10-18] MEDS ORDERED: ACETAMINOPHEN 325 MG TAB ONE (15:56)
[2019-10-18] MEDS: ONDANSETRON 4 MG/2 ML INJ IV PRN (21:03)
[2019-10-18] MEDS: SUCRALFATE 1 GM/10 ML ORAL LIQD PO SCH (21:54)
[2019-10-19] MEDS ORDERED: ALBUTEROL 2.5 MG/3 ML NEBU IH PRN (01:19)
[2019-10-19] MEDS ORDERED: LORazepam 2 MG/ML VIAL IV ONE (04:19)
[2019-10-19] MEDS: ACETAMINOPHEN 325 MG TAB PO PRN (04:33)
[2019-10-19] MEDS: ONDANSETRON 4 MG/2 ML INJ IV PRN ×2 (07:09→22:07)
[2019-10-19] MEDS: DIVALPROEX DR 500 MG TAB PO SCH ×3 (08:42→22:00)
[2019-10-19] MEDS: SUCRALFATE 1 GM/10 ML ORAL LIQD PO SCH ×5 (08:43→22:00)
[2019-10-19] MEDS ORDERED: clonazePAM 0.5 MG TAB PO SCH (10:00)
--- NOTE | 2019-10-19 10:04 | Consultation ---
History of Present Illness Consult date: 10/19/19 Consult reason: chest pain History of present illness: 49 year old female presenting with acute onset epigastric pain associated with nausea and radiating to her jaw area. Pain is worse lying down and improves with sitting up. Patient has significant epigastric tenderness on exam and pain seems to radiate to her mid back every time I put pressure on her epigastric area. Patient has a long standing history of reflux disease and GERD. Patient never had a formal GI work-up. A stress test performed 11/2018 showing no ischemia. ECG showing no ischemic changes and troponins are negative x 3. CT abdomen showing NAP but evidence of hepatic steatosis. Past History Past Medical History: COPD, GERD, heart failure, hypertension, migraines, seizures, other (See HPI) Past Surgical History: hysterectomy, Other (Breast reduction surgery) Social history: single. denies: smoking, alcohol abuse, prescription drug abuse Family history: diabetes, hypertension Medications and Allergies Allergies Allergy/AdvReac Type Severity Reaction Status Date / Time Iodinated Contrast Media Allergy Rash Verified 11/14/15 22:10 [Iodinated Contrast Media - IV Dye] lisinopril Allergy Swelling Verified 11/14/15 22:10 morphine Allergy Rash Verified 11/14/15 22:10 Home Medications Medication Instructions Recorded Confirmed Last Taken Type Divalproex Sodium [Depakote] 1,000 mg PO TID 09/19/17 10/19/19 1 Day Ago History ~10/18/19 FLUoxetine HCL [FLUoxetine] 20 mg PO DAILY 04/19/18 10/19/19 1 Day Ago History ~10/18/19 cloNIDine [Catapres] 0.2 mg PO BID #60 tablet 04/20/18 10/19/19 1 Day Ago Rx ~10/18/19 Albuterol INH(or & Nicu Only) 2 puff IH Q4HR PRN #1 inhalation 07/31/18 10/19/19 1 Day Ago Rx [ProAir HFA Inhaler] ~10/18/19 Potassium Chloride [K-Dur] 20 meq PO QDAY 07/31/18 10/19/19 1 Day Ago History ~10/18/19 Losartan/Hydrochlorothiazide 1 each PO DAILY 11/28/18 10/19/19 1 Day Ago History [Losartan-Hctz 100-25 mg Tab] ~10/18/19 Aspirin [Adult Aspirin] 81 mg PO QDAY #30 tablet. 12/06/18 10/19/19 1 Day Ago Rx ~10/18/19 Lacosamide [Vimpat] 200 mg PO Q12HR #60 tablet 12/06/18 10/19/19 1 Day Ago Rx ~10/18/19 Montelukast [Singulair] 10 mg PO QPM #30 tablet 12/06/18 10/19/19 1 Day Ago Rx ~10/18/19 carvediloL [Coreg] 6.25 mg PO BID #60 tablet 12/06/18 10/19/19 1 Day Ago Rx ~10/18/19 clonazePAM [Clonazepam] 0.5 mg PO BID #20 tablet 12/06/18 10/19/19 1 Day Ago Rx ~10/18/19 0.5mg hydrALAZINE [Apresoline TAB] 25 mg PO TID #90 tablet 12/06/18 10/19/19 10/18/19 Rx levETIRAcetam [Keppra TAB] 1,000 mg PO BID #60 tab 12/06/18 10/19/19 10/18/19 Rx Ondansetron [Zofran Odt] 4 mg PO Q8HR #10 tab.rapdis 07/14/19 10/19/19 1 Day Ago Rx ~10/18/19 Active Meds: Active Medications Acetaminophen (Tylenol) 650 mg PO Q4H PRN PRN Reason: Pain MILD(1-3)/Fever >100.5/MEZA Last Admin: 10/19/19 04:33 Dose: 650 mg Documented by: Albuterol (Proventil) 2.5 mg IH Q4HRT PRN PRN Reason: Shortness Of Breath Clonazepam (Klonopin) 0.5 mg PO BID MARYA Divalproex Sodium (Depakote Dr) 1,000 mg PO TID MARYA Last Admin: 10/19/19 08:42 Dose: 1,000 mg Documented by: Fluoxetine HCl (Prozac) 20 mg PO DAILY MARYA Lacosamide (Vimpat) 200 mg PO Q12HR MARYA Levetiracetam (Keppra) 1,000 mg PO BID MARYA Montelukast Sodium (Singulair) 10 mg PO QPM MARYA Ondansetron HCl (Zofran) 4 mg IV Q8H PRN PRN Reason: Nausea And Vomiting Last Admin: 10/19/19 07:09 Dose: 4 mg Documented by: Sodium Chloride (Sodium Chloride Flush Syringe 10 Ml) 10 ml IV BID [facility] Last Admin: 10/18/19 21:57 Dose: 10 ml Documented by: Sodium Chloride (Sodium Chloride Flush Syringe 10 Ml) 10 ml IV PRN PRN PRN Reason: LINE FLUSH Sucralfate (Carafate) 1 gm PO ACHS [facility] Last Admin: 10/19/19 08:43 Dose: 1 gm Documented by: Review of Systems All systems: negative Physical Examination Vital Signs Temp Pulse Resp BP Pulse Ox 98.0 F 66 20 119/86 98 10/18/19 11:25 10/18/19 11:25 10/18/19 11:25 10/18/19 11:25 10/18/19 11:25 General appearance: no acute distress HEENT: Positive: PERRL Neck: Positive: neck supple Cardiac: Positive: Reg Rate and Rhythm Lungs: Positive: Normal Exam Abdomen: Positive: Soft, Tender (epigastric tenderness) Extremities: Absent: edema Results 10/18/19 12:28 10/18/19 12:28 Cardiac Enzymes 10/18/19 Range/Units 12:28 AST 22 (5-40) units/L Coagulation 10/18/19 Range/Units 12:28 PT 13.4 (12.2-14.9) Sec. INR 1.01 (0.87-1.13) APTT 25.3 (24.2-36.6) Sec. CBC 10/18/19 Range/Units 12:28 WBC 5.3 (4.5-11.0) K/mm3 RBC 4.30 (3.65-5.03) M/mm3 Hgb 12.8 (10.1-14.3) gm/dl Hct 38.2 (30.3-42.9) % Plt Count 152 (140-440) K/mm3 Lymph # 2.1 (1.2-5.4) K/mm3 [place] # 0.4 (0.0-0.8) K/mm3 Eos # 0.1 (0.0-0.4) K/mm3 Baso # 0.0 (0.0-0.1) K/mm3 Comprehensive Metabolic Panel 10/18/19 Range/Units 12:28 Sodium 139 (137-145) mmol/L Potassium 4.1 (3.6-5.0) mmol/L Chloride 97.8 L (98-107) mmol/L Carbon Dioxide 25 (22-30) mmol/L BUN 10 (7-17) mg/dL Creatinine 1.1 (0.7-1.2) mg/dL Glucose 122 H (65-100) mg/dL Calcium 8.6 (8.4-10.2) mg/dL AST 22 (5-40) units/L ALT 21 (7-56) units/L Alkaline Phosphatase 65 (35-129) units/L Total Protein 7.0 (6.3-8.2) g/dL Albumin 4.1 (3.9-5) g/dL - EKG Interpretation EKG: sinus rhythm EKG interpretations - Telemetry EKG Rhythm: Sinus Rhythm Assessment and Plan Epigastric pain and tenderess Symptoms are atypical for angina No ischemic ECG changes Negative troponin x 3 CT A/P - hepatic steatosis, NAP Normal stress test 11/2018 Essential primary hypertension, resistant Seizure disorder Non-ischemic cardiomyopathy, LVEF 45% Recommendations: Recommend GI work-up with upper endoscopy to evaluate patient's symptoms and epigastric tenderness Will cotinue to follow. Further cardiac recommendations pending GI evaluation and findings
[2019-10-19] MEDS: LACOSAMIDE 100 MG TAB PO SCH ×2 (10:57→22:01)
[2019-10-19] MEDS: levETIRAcetam 500 MG TAB PO SCH ×2 (10:58→22:01)
[2019-10-19] MEDS: FLUoxetine 20 MG CAP PO SCH (10:58)
--- NOTE | 2019-10-19 11:33 | Progress Note ---
Assessment and Plan Assessment and plan: Chest pain Cardiology consulted in ED, serial cardiac enzymes, EKG, stress test from previous admission reviewed, PPI therapy, supportive care. Cardiology wants GI eval before poss cardiac cath I spoke to Dr. Tobar Abdominal pain CT scan abdomen and pelvis, serial abdominal exams, no acute findings on CT scan of abdomen and pelvis. GI eval Hypertension Monitor blood pressure every shift, continue medical management. CHF (congestive heart failure) Strict I's/O, daily weight, BNP, submental oxygen, afterload reduction, cardiology consulted in ED Seizure disorder Continue medical management, seizure precautions, supportive care. DVT prophylaxis: SCD to bilateral lower extremities while in bed, Patient is ambulatory. History Interval history: Chest pain Hospitalist Physical - Physical exam Narrative exam: General appearance: Present: mild distress, obese - EENT Eyes: Present: PERRL ENT: hearing intact, clear oral mucosa - Neck Neck: Present: supple, normal ROM - Respiratory Respiratory effort: normal Respiratory: bilateral: CTA - Cardiovascular Heart Sounds: Present: S1 & S2. Absent: rub, click - Extremities Extremities: pulses symmetrical, No edema Peripheral Pulses: within normal limits - Abdominal General gastrointestinal: Present: soft, non-tender, non-distended, normal bowel sounds Female genitourinary: Present: normal - Integumentary Integumentary: Present: clear, warm, dry - Musculoskeletal Musculoskeletal: gait normal, strength equal bilaterally - Psychiatric Psychiatric: appropriate mood/affect, intact judgment & insight - Neurologic Neurologic: CNII-XII intact, moves all extremities - Constitutional Vitals: Temp Pulse Resp BP Pulse Ox 97.6 F 75 20 146/86 95 10/19/19 05:44 10/19/19 05:44 10/19/19 05:44 10/19/19 05:44 10/19/19 05:44 General appearance: Present: no acute distress, obese DAVE score - Dave Score Age > 65: (0) No Aspirin use within the Past 7 Days: (1) Yes 3 or more CAD Risk Factors: (0) No 2 or more Angina events in past 24 hrs: (1) Yes Known CAD with more than 50% Stenosis: (0) No Elevated Cardiac Markers: (0) No ST Deviation Greater than 0.5mm: (0) No DAVE Score: 2 Results - Labs CBC & Chem 7: 10/20/19 13:10/20/19 13:12 Labs: Laboratory Last Values WBC 5.3 K/mm3 (4.5-11.0) 10/18/19 12: RBC 4.30 M/mm3 (3.65-5.03) 10/18/19 12: Hgb 12.8 gm/dl (10.1-14.3) 10/18/19 12: Hct 38.2 % (30.3-42.9) 10/18/19 12: MCV 89 fl (79-97) 10/18/19 12: MCH 30 pg (28-32) 10/18/19: MCHC 33 % (30-34) 10/18/19: RDW 13.2 % (13.2-15.2) 10/18/19: Plt Count 152 K/mm3 (140-440) 10/18/19 12: Lymph % (Auto) 39.6 % (13.4-35.0) H 10/18/19: [place] % (Auto) 7.8 % (0.0-7.3) H 10/18/19 12: Eos % (Auto) 2.6 % (0.0-4.3) 10/18/19: Baso % (Auto) 0.9 % (0.0-1.8) 10/18/19: Lymph # 2.1 K/mm3 (1.2-5.4) 10/18/19: [place] # 0.4 K/mm3 (0.0-0.8) 10/18/19 12: Eos # 0.1 K/mm3 (0.0-0.4) 10/18/19 12: Baso # 0.0 K/mm3 (0.0-0.1) 10/18/19: Seg Neutrophils % 49.1 % (40.0-70.0) 10/18/19: Seg Neutrophils # 2.6 K/mm3 (1.8-7.7) 10/18/19 12: PT 13.4 Sec. (12.2-14.9) 10/18/19 12: INR 1.01 (0.87-1.13) 10/18/19 12:28 APTT 25.3 Sec. (24.2-36.6) 10/18/19 12:28 D-Dimer 230.08 ng/mlDDU (0-234) 10/18/19 12:28 Sodium 139 mmol/L (137-145) 10/18/19 12:28 Potassium 4.1 mmol/L (3.6-5.0) 10/18/19 12:28 Chloride 97.8 mmol/L (98-107) L 10/18/19 12:28 Carbon Dioxide 25 mmol/L (22-30) 10/18/19 12:28 Anion Gap 20 mmol/L 10/18/19 12:28 BUN 10 mg/dL (7-17) 10/18/19 12:28 Creatinine 1.1 mg/dL (0.7-1.2) 10/18/19 12:28 Estimated GFR > 60 ml/min 10/18/19 12:28 BUN/Creatinine Ratio 9 % 10/18/19 12:28 Glucose 122 mg/dL (65-100) H 10/18/19 12:28 Calcium 8.6 mg/dL (8.4-10.2) 10/18/19 12:28 Total Bilirubin 0.40 mg/dL (0.1-1.2) 10/18/19 12:28 AST 22 units/L (5-40) 10/18/19 12:28 ALT 21 units/L (7-56) 10/18/19 12:28 Alkaline Phosphatase 65 units/L (35-129) 10/18/19 12:28 Troponin T < 0.010 ng/mL (0.00-0.029) 10/18/19 18:41 NT-Pro-B Natriuret Pep 214.2 pg/mL (0-450) 10/18/19 15:02 Total Protein 7.0 g/dL (6.3-8.2) 10/18/19 12:28 Albumin 4.1 g/dL (3.9-5) 10/18/19 12:28 Albumin/Globulin Ratio 1.4 % 10/18/19 12:28 Lipase 14 units/L (13-60) 10/18/19 12:28 Valproic Acid 85.9 ug/mL (50-100) 10/18/19 12:28 Active Medications - Current Medications Current Medications: Generic Name Dose Route Start Last Admin Trade Name Freq PRN Reason Stop Dose Admin Acetaminophen 650 mg 10/18/19 14:55 10/19/19 04:33 Tylenol PO 650 mg Q4H PRN Administration Pain MILD(1-3)/Fever >100.5/MEZA Albuterol 2.5 mg 10/19/19 01:19 Proventil IH Q4HRT PRN Shortness Of Breath Clonazepam 0.5 mg 10/19/19 22:00 Klonopin PO BID MARYA Divalproex Sodium 1,000 mg 10/19/19 08:00 10/19/19 08:[address] PO 1,000 mg TID MARYA Administration Fluoxetine HCl 20 mg 10/19/19 10:00 10/19/19 10:58 Prozac PO 20 mg DAILY MARYA Administration Lacosamide 200 mg 10/19/19 10:00 10/19/19 10:57 Vimpat PO 200 mg Q12HR MARYA Administration Levetiracetam 1,000 mg 10/19/19 10:00 10/19/19 10:58 Keppra PO 1,000 mg BID MARYA Administration Montelukast Sodium 10 mg 10/19/19 18:00 Singulair PO QPM MARYA Ondansetron HCl 4 mg 10/18/19 14:55 10/19/19 07:09 Zofran IV 4 mg Q8H PRN Administration Nausea And Vomiting Sodium Chloride 10 ml 10/18/19 22:00 10/19/19 10:58 Sodium Chloride Flush Syringe 10 Ml IV 10 ml BID MARYA Administration Sodium Chloride 10 ml 10/18/19 14:55 Sodium Chloride Flush Syringe 10 Ml IV PRN PRN LINE FLUSH Sucralfate 1 gm 10/18/19 16:30 10/19/19 08:43 Carafate PO 1 gm ACHS MARYA Administration
--- NOTE | 2019-10-19 11:55 | Gastroenterology Consultation ---
<BRIAN LOPEZ - Last Filed: 10/19/19 12:07> History of Present Illness - Reason for Consult Consult date: 10/19/19 atypical CP/epigastric pain Requesting physician: TONI ZAMORA - History of Present Illness Patient is a 49 y/o female with PMH of COPD/asthma, HTN, GERD, seizure disorder, obesity, migraine headache, and systolic CHF who presented to ED with c/o CP and upper abdominal pain. She has been evaluated by cardiology with ACS ruled out. This morning patient was sitting up in bed w/o acute distress. Reports symptoms are chronic (according to chart review since ~2012). Abd pain is located in epigastric and LUQ. Pain radiates to her back and is exacerbated with lying down. Improves with sitting up. Not correlated with PO intake. Admits to occasional regurgitation but denies SOB, wt loss, N/V, odynophagia, dysphagia, signs of bleeding, or diarrhea. Has recent episode of constipation which is now resolved after taking laxative/stool softener at home. She has previously tried to treat symptoms with H2 blockers (zantac/pepcid) with no improvement. No ETOH abuse. Takes daily ASA but no hx of PUD or previous EGD. Abd CT upon admission showed hepatic steatosis but no acute process. Tolerated diet this am w/o difficulty. Past History Past Medical History: other (See HPI) Past Surgical History: hysterectomy, Other (Breast reduction surgery) Social history: single. denies: smoking, alcohol abuse, prescription drug abuse Family history: diabetes, hypertension Medications and Allergies Allergies Allergy/AdvReac Type Severity Reaction Status Date / Time Iodinated Contrast Media Allergy Rash Verified 11/14/15 22:10 [Iodinated Contrast Media - IV Dye] lisinopril Allergy Swelling Verified 11/14/15 22:10 morphine Allergy Rash Verified 11/14/15 22:10 Home Medications Medication Instructions Recorded Confirmed Last Taken Type Divalproex Sodium [Depakote] 1,000 mg PO TID 09/19/17 10/19/19 1 Day Ago History ~10/18/19 FLUoxetine HCL [FLUoxetine] 20 mg PO DAILY 04/19/18 10/19/19 1 Day Ago History ~10/18/19 cloNIDine [Catapres] 0.2 mg PO BID #60 tablet 04/20/18 10/19/19 1 Day Ago Rx ~10/18/19 Albuterol INH(or & Nicu Only) 2 puff IH Q4HR PRN #1 inhalation 07/31/18 10/19/19 1 Day Ago Rx [ProAir HFA Inhaler] ~10/18/19 Potassium Chloride [K-Dur] 20 meq PO QDAY 07/31/18 10/19/19 1 Day Ago History ~10/18/19 Losartan/Hydrochlorothiazide 1 each PO DAILY 11/28/18 10/19/19 1 Day Ago History [Losartan-Hctz 100-25 mg Tab] ~10/18/19 Aspirin [Adult Aspirin] 81 mg PO QDAY #30 tablet. 12/06/18 10/19/19 1 Day Ago Rx ~10/18/19 Lacosamide [Vimpat] 200 mg PO Q12HR #60 tablet 12/06/18 10/19/19 1 Day Ago Rx ~10/18/19 Montelukast [Singulair] 10 mg PO QPM #30 tablet 12/06/18 10/19/19 1 Day Ago Rx ~10/18/19 carvediloL [Coreg] 6.25 mg PO BID #60 tablet 12/06/18 10/19/19 1 Day Ago Rx ~10/18/19 clonazePAM [Clonazepam] 0.5 mg PO BID #20 tablet 12/06/18 10/19/19 1 Day Ago Rx ~10/18/19 0.5mg hydrALAZINE [Apresoline TAB] 25 mg PO TID #90 tablet 12/06/18 10/19/19 10/18/19 Rx levETIRAcetam [Keppra TAB] 1,000 mg PO BID #60 tab 12/06/18 10/19/19 10/18/19 Rx Ondansetron [Zofran Odt] 4 mg PO Q8HR #10 tab.rapdis 07/14/19 10/19/19 1 Day Ago Rx ~10/18/19 Active Meds: Active Medications Acetaminophen (Tylenol) 650 mg PO Q4H PRN PRN Reason: Pain MILD(1-3)/Fever >100.5/MEZA Last Admin: 10/19/19 04:33 Dose: 650 mg Documented by: Albuterol (Proventil) 2.5 mg IH Q4HRT PRN PRN Reason: Shortness Of Breath Clonazepam (Klonopin) 0.5 mg PO BID [facility] Divalproex Sodium (Depakote Dr) 1,000 mg PO TID [facility] [place] Last Admin: 10/19/19 08:42 Dose: 1,000 mg Documented by: Fluoxetine HCl (Prozac) 20 mg PO DAILY [facility] [place] Last Admin: 10/19/19 10:58 Dose: 20 mg Documented by: Lacosamide (Vimpat) 200 mg PO Q12HR [facility] [place] Last Admin: 10/19/19 10:57 Dose: 200 mg Documented by: Levetiracetam (Keppra) 1,000 mg PO BID [facility] [place] Last Admin: 10/19/19 10:58 Dose: 1,000 mg Documented by: Montelukast Sodium (Singulair) 10 mg PO QPM [facility] [place] Ondansetron HCl (Zofran) 4 mg IV Q8H PRN PRN Reason: Nausea And Vomiting Last Admin: 10/19/19 07:09 Dose: 4 mg Documented by: Pantoprazole Sodium (Protonix) 40 mg IV BID [facility] [place] Sodium Chloride (Sodium Chloride Flush Syringe 10 Ml) 10 ml IV BID [facility] [place] Last Admin: 10/19/19 10:58 Dose: 10 ml Documented by: Sodium Chloride (Sodium Chloride Flush Syringe 10 Ml) 10 ml IV PRN PRN PRN Reason: LINE FLUSH Sucralfate (Carafate) 1 gm PO ACHS [facility] [place] Last Admin: 10/19/19 08:43 Dose: 1 gm Documented by: medications reviewed/updated as required Review of Systems - Review of Systems All systems: negative Cardiovascular: chest pain Gastrointestinal: abdominal pain Exam - Constitutional Vital Signs: Temp Pulse Resp BP Pulse Ox 97.6 F 75 20 146/86 95 10/19/19 05:44 10/19/19 05:44 10/19/19 05:44 10/19/19 05:44 10/19/19 05:44 General appearance: no acute distress, obese - EENT Eyes: PERRL, EOM intact ENT: hearing intact - Respiratory Respiratory effort: normal Respiratory: bilateral: diminished - Cardiovascular Rhythm: regular - Gastrointestinal General gastrointestinal: Present: soft, tender (slight TTP in epigastric/LUQ), normal bowel sounds, other (obese) - Integumentary Integumentary: Present: warm, dry - Neurologic Neurological: alert and oriented x3 - Labs CBC & Chem 7: 10/18/19 12:28 10/18/19 12:28 Lab Results: Laboratory Results - last 24 hr 10/18/19 10/18/19 10/18/19 12:28 12:28 12:28 WBC 5.3 RBC 4.30 Hgb 12.8 Hct 38.2 MCV 89 MCH 30 MCHC 33 RDW 13.2 Plt Count 152 Lymph % (Auto) 39.6 H [place] % (Auto) 7.8 H Eos % (Auto) 2.6 Baso % (Auto) 0.9 Lymph # 2.1 [place] # 0.4 Eos # 0.1 Baso # 0.0 Seg Neutrophils % 49.1 Seg Neutrophils # 2.6 PT 13.4 INR 1.01 APTT 25.3 D-Dimer 230.08 Sodium Potassium Chloride Carbon Dioxide Anion Gap BUN Creatinine Estimated GFR BUN/Creatinine Ratio Glucose Calcium Total Bilirubin AST ALT Alkaline Phosphatase Troponin T < 0.010 NT-Pro-B Natriuret Pep Total Protein Albumin Albumin/Globulin Ratio Lipase Valproic Acid 10/18/19 10/18/19 10/18/19 12:28 12:28 15:02 WBC RBC Hgb Hct MCV MCH MCHC RDW Plt Count Lymph % (Auto) [place] % (Auto) Eos % (Auto) Baso % (Auto) Lymph # [place] # Eos # Baso # Seg Neutrophils % Seg Neutrophils # PT INR APTT D-Dimer Sodium 139 Potassium 4.1 Chloride 97.8 L Carbon Dioxide 25 Anion Gap 20 BUN 10 Creatinine 1.1 Estimated GFR > 60 BUN/Creatinine Ratio 9 Glucose 122 H Calcium 8.6 Total Bilirubin 0.40 AST 22 ALT 21 Alkaline Phosphatase 65 Troponin T < 0.010 NT-Pro-B Natriuret Pep Total Protein 7.0 Albumin 4.1 Albumin/Globulin Ratio 1.4 Lipase 14 Valproic Acid 85.9 10/18/19 10/18/19 15:02 18:41 WBC RBC Hgb Hct MCV MCH MCHC RDW Plt Count Lymph % (Auto) [place] % (Auto) Eos % (Auto) Baso % (Auto) Lymph # [place] # Eos # Baso # Seg Neutrophils % Seg Neutrophils # PT INR APTT D-Dimer Sodium Potassium Chloride Carbon Dioxide Anion Gap BUN Creatinine Estimated GFR BUN/Creatinine Ratio Glucose Calcium Total Bilirubin AST ALT Alkaline Phosphatase Troponin T < 0.010 NT-Pro-B Natriuret Pep 214.2 Total Protein Albumin Albumin/Globulin Ratio Lipase Valproic Acid Assessment and Plan 1.atypical CP-chronic 2.upper abdominal pain-chronic -afebrile -WBC, H/H, LFTs, and lipase WNL -abd CT showed hepatic steatosis but no acute process -patient reports abd pain in epigastric/LUQ, along with CP that has been present for several years with no change (not correlated with PO, exacerbated with lying down, improves with sitting up). + occasional regurgitation. Denies N/V, wt loss, odynophagia, dysphagia, or signs of bleeding -etiology- possibly 2/2 GERD vs ulcer vs other -clinically, patient is stable. Tolerating diet. -recommend starting on high dose PPI -anti-reflux diet, encouraged wt loss, and lifestyle modifications for GERD -EGD if symptoms persist (non-emergent; can be done as outpatient) -continue supportive care -patient okay to be d/c on trial of PPI BID with f/u in clinic in ~2-3 weeks for further workup/management <LORETTA SOLOMON - Last Filed: 10/19/19 14:39> Medications and Allergies Active Meds: Active Medications Acetaminophen (Tylenol) 650 mg PO Q4H PRN PRN Reason: Pain MILD(1-3)/Fever >100.5/MEZA Last Admin: 10/19/19 04:33 Dose: 650 mg Documented by: Albuterol (Proventil) 2.5 mg IH Q4HRT PRN PRN Reason: Shortness Of Breath Aspirin (Halfprin Ec) 81 mg PO QDAY [facility] Last Admin: 10/19/19 14:19 Dose: 81 mg Documented by: Carvedilol (Coreg) 6.25 mg PO BID [facility] [place] Last Admin: 10/19/19 14:20 Dose: 6.25 mg Documented by: Clonazepam (Klonopin) 0.5 mg PO BID [facility] [place] Clonidine HCl (Catapres) 0.2 mg PO BID [facility] [place] Last Admin: 10/19/19 14:21 Dose: 0.2 mg Documented by: Divalproex Sodium (Depakote Dr) 1,000 mg PO TID [facility] [place] Last Admin: 10/19/19 14:21 Dose: 1,000 mg Documented by: Fluoxetine HCl (Prozac) 20 mg PO DAILY [facility] [place] Last Admin: 10/19/19 10:58 Dose: 20 mg Documented by: Hydralazine HCl (Apresoline) 25 mg PO TID [facility] [place] Last Admin: 10/19/19 14:22 Dose: 25 mg Documented by: Lacosamide (Vimpat) 200 mg PO Q12HR [facility] [place] Last Admin: 10/19/19 10:57 Dose: 200 mg Documented by: Levetiracetam (Keppra) 1,000 mg PO BID [facility] [place] Last Admin: 10/19/19 10:58 Dose: 1,000 mg Documented by: Montelukast Sodium (Singulair) 10 mg PO QPM [facility] [place] Ondansetron HCl (Zofran) 4 mg IV Q8H PRN PRN Reason: Nausea And Vomiting Last Admin: 10/19/19 07:09 Dose: 4 mg Documented by: Pantoprazole Sodium (Protonix) 40 mg IV BID [facility] [place] Last Admin: 10/19/19 12:17 Dose: 40 mg Documented by: Potassium Chloride (K-Dur) 20 meq PO QDAY [facility] [place] Sodium Chloride (Sodium Chloride Flush Syringe 10 Ml) 10 ml IV BID [facility] [place] Last Admin: 10/19/19 10:58 Dose: 10 ml Documented by: Sodium Chloride (Sodium Chloride Flush Syringe 10 Ml) 10 ml IV PRN PRN PRN Reason: LINE FLUSH Sucralfate (Carafate) 1 gm PO ACHS [facility] [place] Last Admin: 10/19/19 12:17 Dose: 1 gm Documented by: Exam - Constitutional Vital Signs: Temp Pulse Resp BP Pulse Ox 98.4 F 74 18 169/104 97 10/19/19 12:49 10/19/19 14:22 10/19/19 12:49 10/19/19 14:22 10/19/19 12:49 - Labs CBC & Chem 7: 10/18/19 12:28 10/18/19 12:28 Lab Results: Laboratory Results - last 24 hr 10/18/19 10/18/19 10/18/19 15:02 15:02 18:41 Troponin T < 0.010 < 0.010 NT-Pro-B Natriuret Pep 214.2 Assessment and Plan Patient seen and examined; agree with note above. chronic, recurrent substernal cp with neg cardiac work-up. treat for possible GERD with high dose ppi as above as atypical gerd is common etiology for non-cardiac cp. f/u in GI clinic in 2 weeks and consider endoscopy if symptoms persists despite PPI.
[2019-10-19] MEDS: PANTOPRAZOLE 40 MG INJ IV SCH ×2 (12:17→23:04)
[2019-10-19] MEDS ORDERED: ALBUTEROL 8.5 GM INHALATION IH PRN (13:55)
[2019-10-19] MEDS: ASPIRIN EC 81 MG TAB PO SCH (14:19)
[2019-10-19] MEDS: carvediloL 6.25 MG TAB PO SCH ×2 (14:20→22:58)
[2019-10-19] MEDS: cloNIDine 0.2 MG TAB PO SCH ×2 (14:21→22:58)
[2019-10-19] MEDS: hydrALAZINE 25 MG TAB PO SCH ×2 (14:22→22:57)
[2019-10-19] MEDS: MONTELUKAST 10 MG TAB PO SCH (19:13)
[2019-10-19] MEDS: clonazePAM 0.5 MG TAB PO SCH (22:02)
[2019-10-19] MEDS ORDERED: oxyCODONE /ACETAMINOPHEN 5-325MG TAB PO PRN (23:51)
[2019-10-20] MEDS ORDERED: LORazepam 2 MG/ML VIAL ONE ×2 (07:58→08:11)
--- NOTE | 2019-10-20 08:16 | Event Note ---
Date: 10/20/19 Code met called for seizures. patient had seizures for about 25 mins. Given Ativan iv, seizures stopped.
--- NOTE | 2019-10-20 08:52 | XRay Report ---
CHEST 1 VIEW 10/20/2019 8:27 AM INDICATION / CLINICAL INFORMATION: seizures, possible aspiration. COMPARISON: 07/14/19 FINDINGS: SUPPORT DEVICES: None. HEART / MEDIASTINUM: Heart is upper normal size for AP portable technique. LUNGS / PLEURA: No significant pulmonary or pleural abnormality. No pneumothorax. ADDITIONAL FINDINGS: No significant additional findings. IMPRESSION: 1. Borderline cardiomegaly but no acute pulmonary or pleural findings. Signer Name: Clementine Dimas MD Signed: 10/20/2019 8:48 AM Workstation Name: [id number]
[2019-10-20] MEDS: levETIRAcetam 1,000 MG in DEXTROSE 5% IN WATER 100 ML IV SCH ×4 (09:34→23:32)
[2019-10-20] MEDS: PANTOPRAZOLE 40 MG INJ IV SCH ×2 (09:46→23:22)
[2019-10-20] MEDS: LACOSAMIDE 200 MG in SODIUM CHLORIDE 0.9% 100 ML IV SCH ×2 (11:02→19:00)
[2019-10-20] MEDS: VALPROATE SODIUM 1,000 MG in SODIUM CHLORIDE 0.9% 100 ML IV SCH ×2 (11:10→22:56)
[2019-10-20] MEDS: LORazepam 2 MG/ML VIAL IV PRN ×5 (11:17→20:45)
[2019-10-20] MEDS: hydrALAZINE 25 MG TAB PO SCH ×3 (11:49→20:00)
[2019-10-20] MEDS: ASPIRIN EC 81 MG TAB PO SCH (11:50)
[2019-10-20] MEDS: cloNIDine 0.2 MG TAB PO SCH ×2 (11:50→23:26)
[2019-10-20] MEDS: carvediloL 6.25 MG TAB PO SCH ×2 (11:50→23:26)
[2019-10-20] MEDS: POTASSIUM CHLORIDE ER 20 MEQ TAB PO SCH (11:51)
[2019-10-20] MEDS: FLUoxetine 20 MG CAP PO SCH (11:52)
[2019-10-20] MEDS: clonazePAM 0.5 MG TAB PO SCH ×2 (11:52→23:31)
--- NOTE | 2019-10-20 12:33 | Event Note ---
Date: 10/20/19 Patient presented to the hospital with epigastric pain, as noted on the prior cardiac note, there are no active cardiac issues. This morning, she is being evaluated for possible seizures. No further cardiac workup is indicated, we will follow on a when necessary basis.
[2019-10-20] MEDS: DIVALPROEX DR 500 MG TAB PO SCH (12:42)
[2019-10-20] MEDS: SUCRALFATE 1 GM/10 ML ORAL LIQD PO SCH (12:42)
[2019-10-20 13:39] LABS: Hematocrit 39.4 % (30.3-42.9); Hemoglobin 13.2 gm/dl (10.1-14.3); Mean Corpuscular HGB Conc 33 % (30-34); Mean Corpuscular Volume 89 fl (79-97); Platelet Count 146 K/mm3 (140-440); Red Blood Count 4.43 M/mm3 (3.65-5.03); Red Cell Distribution Width 13.1 % (13.2-15.2)
[2019-10-20 14:00] LABS: BUN/Creatinine Ratio 8; Blood Urea Nitrogen 9 mg/dL (7-17); Calcium 8.3 mg/dL (8.4-10.2); Hemolysis Index 4
--- NOTE | 2019-10-20 14:54 | Event Note ---
Date: 10/20/19 Called by [facility] for seizures requesting ICU bed. patient not in status and has known seizure disorder. Not appropriate at this time for ICU. IMS will transfer to step down. Asked me to see patient any way. Spoke with a daughter at bedside. While I was in the room patient was having another what appears to be generalized tonic-clonic seizure. IMS has changed all epileptic drugs to IV. Chart reviewed and patient also takes clonopin 0.5 BID. This does not appear to have been given. Not sure for how long. Suggest either placing a dobb-chandrika tube and restarting this medicine. Also need to consider increasing current medications but await neurology input.
--- NOTE | 2019-10-20 16:15 | Progress Note ---
Subjective Date of service: 10/20/19 Interval history: the patient's notes were checked and she was on vimpat and VPA at time of admission this should certainly effecttively Tx seizureres wonder if this could be Klonopin with drawal etc will look into this VPA levels is normal Objective - Vital Sign Vital Signs - 12hr 10/20/19 10/20/19 10/20/19 04:22 04:49 08:16 Temperature 97.8 F Pulse Rate 63 98 H Respiratory 18 18 20 Rate Blood Pressure 140/78 136/91 O2 Sat by Pulse 96 100 Oximetry 10/20/19 11:15 Temperature Pulse Rate 80 Respiratory 20 Rate Blood Pressure 145/98 O2 Sat by Pulse 100 Oximetry - Laboratory Findings CBC and BMP: 10/20/19 13:12 10/20/19 13:12 Abnormal Lab Findings: Abnormal Labs 10/18/19 10/18/19 10/20/19 12:28 12:28 08:14 RDW Lymph % (Auto) 39.6 H [place] % (Auto) 7.8 H Chloride 97.8 L Glucose 122 H POC Glucose 127 H Calcium 10/20/19 10/20/19 13:12 13:12 RDW 13.1 L Lymph % (Auto) [place] % (Auto) Chloride Glucose POC Glucose Calcium 8.3 L
[2019-10-20] MEDS: MONTELUKAST 10 MG TAB PO SCH (18:00)
--- NOTE | 2019-10-20 18:26 | Progress Note ---
Assessment and Plan Assessment and plan: Chest pain Cardiology consulted in ED, serial cardiac enzymes, EKG, stress test from previous admission reviewed, PPI therapy, supportive care. Cardiology wants GI eval before possible cardiac cath I spoke to Dr. Ekaterina Murphy on hold because of seizures Breakthrough seizures. Patient had seizures for about 25 mins as per Nurse, resolved after 4 doses of Ativan. Keppra,Locasamide,Depakote now given iv Consult ID Change to inpatient Abdominal pain,upper CT scan abdomen and pelvis, serial abdominal exams, no acute findings on CT scan of abdomen and pelvis. GI eval Hypertension Monitor blood pressure every shift, continue medical management. Chronic systolic congestive heart failure Strict I's/O, daily weight, BNP, submental oxygen, afterload reduction, Seizure disorder Continue medical management, seizure precautions, supportive care. DVT prophylaxis: SCD to bilateral lower extremities while in bed, Patient is ambulatory. Addendum: Patient had more seizures in afternoon. Transfer to [facility] History Interval history: Code MET called this morning for seives Seizures for about 25 mins, stopped after 4 doses of Ativan Hospitalist Physical - Physical exam Narrative exam: General appearance: Present: obese - EENT Eyes: Present: PERRL ENT: hearing intact, clear oral mucosa - Neck Neck: Present: supple, normal ROM - Respiratory Respiratory effort: normal Respiratory: bilateral: CTA - Cardiovascular Heart Sounds: Present: S1 & S2. Absent: rub, click - Extremities Extremities: pulses symmetrical, No edema Peripheral Pulses: within normal limits - Abdominal General gastrointestinal: Present: soft, non-tender, non-distended, normal bowel sounds Female genitourinary: Present: normal - Integumentary Integumentary: Present: clear, warm, dry - Musculoskeletal Musculoskeletal: gait normal, strength equal bilaterally - Psychiatric Psychiatric: appropriate mood/affect, intact judgment & insight - Neurologic Neurologic: Sedated after seizures - Constitutional Vitals: Temp Pulse Resp BP Pulse Ox 97.8 F 80 20 145/98 100 10/20/19 04:49 10/20/19 11:15 10/20/19 11:15 10/20/19 11:15 10/20/19 11:15 General appearance: Present: no acute distress DAVE score - Dave Score Age > 65: (0) No Aspirin use within the Past 7 Days: (1) Yes 3 or more CAD Risk Factors: (0) No 2 or more Angina events in past 24 hrs: (1) Yes Known CAD with more than 50% Stenosis: (0) No Elevated Cardiac Markers: (0) No ST Deviation Greater than 0.5mm: (0) No DAVE Score: 2 Results - Labs CBC & Chem 7: 10/20/19 13:12 10/20/19 13:12 Labs: Laboratory Last Values WBC 4.9 K/mm3 (4.5-11.0) 10/20/19 13:12 RBC 4.43 M/mm3 (3.65-5.03) 10/20/19 13:12 Hgb 13.2 gm/dl (10.1-14.3) 10/20/19 13:12 Hct 39.4 % (30.3-42.9) 10/20/19 13:12 MCV 89 fl (79-97) 10/20/19 13:12 MCH 30 pg (28-32) 10/20/19 13:12 MCHC 33 % (30-34) 10/20/19 13:12 RDW 13.1 % (13.2-15.2) L 10/20/19 13:12 Plt Count 146 K/mm3 (140-440) 10/20/19 13:12 Lymph % (Auto) 39.6 % (13.4-35.0) H 10/18/19 12:28 [place] % (Auto) 7.8 % (0.0-7.3) H 10/18/19 12:28 Eos % (Auto) 2.6 % (0.0-4.3) 10/18/19 12:28 Baso % (Auto) 0.9 % (0.0-1.8) 10/18/19 12:28 Lymph # 2.1 K/mm3 (1.2-5.4) 10/18/19 12:28 Charles # 0.4 K/mm3 (0.0-0.8) 10/18/19 12:28 Eos # 0.1 K/mm3 (0.0-0.4) 10/18/19 12:28 Baso # 0.0 K/mm3 (0.0-0.1) 10/18/19 12:28 Seg Neutrophils % 49.1 % (40.0-70.0) 10/18/19 12:28 Seg Neutrophils # 2.6 K/mm3 (1.8-7.7) 10/18/19 12:28 PT 13.4 Sec. (12.2-14.9) 10/18/19 12:28 INR 1.01 (0.87-1.13) 10/18/19 12:28 APTT 25.3 Sec. (24.2-36.6) 10/18/19 12:28 D-Dimer 230.08 ng/mlDDU (0-234) 10/18/19 12:28 Sodium 143 mmol/L (137-145) 10/20/19 13:12 Potassium 4.0 mmol/L (3.6-5.0) 10/20/19 13:12 Chloride 101.7 mmol/L (98-107) 10/20/19 13:12 Carbon Dioxide 28 mmol/L (22-30) 10/20/19 13:12 Anion Gap 17 mmol/L 10/20/19 13:12 BUN 9 mg/dL (7-17) 10/20/19 13:12 Creatinine 1.1 mg/dL (0.7-1.2) 10/20/19 13:12 Estimated GFR > 60 ml/min 10/20/19 13:12 BUN/Creatinine Ratio 8 % 10/20/19 13:12 Glucose 98 mg/dL (65-100) 10/20/19 13:12 POC Glucose 91 (70-105) 10/20/19 12:12 Calcium 8.3 mg/dL (8.4-10.2) L 10/20/19 13:12 Phosphorus 2.70 mg/dL (2.5-4.5) 10/20/19 13:12 Magnesium 2.00 mg/dL (1.7-2.3) 10/20/19 13:12 Total Bilirubin 0.40 mg/dL (0.1-1.2) 10/18/19 12:28 AST 22 units/L (5-40) 10/18/19 12:28 ALT 21 units/L (7-56) 10/18/19 12:28 Alkaline Phosphatase 65 units/L (35-129) 10/18/19 12:28 Troponin T < 0.010 ng/mL (0.00-0.029) 10/18/19 18:41 NT-Pro-B Natriuret Pep 214.2 pg/mL (0-450) 10/18/19 15:02 Total Protein 7.0 g/dL (6.3-8.2) 10/18/19 12:28 Albumin 4.1 g/dL (3.9-5) 10/18/19 12:28 Albumin/Globulin Ratio 1.4 % 10/18/19 12:28 Lipase 14 units/L (13-60) 10/18/19 12:28 Valproic Acid 85.9 ug/mL (50-100) 10/18/19 12:28 Active Medications - Current Medications Current Medications: Generic Name Dose Route Start Last Admin Trade Name Freq PRN Reason Stop Dose Admin Acetaminophen 650 mg 10/18/19 14:55 10/19/19 04:33 Tylenol PO 650 mg Q4H PRN Administration Pain MILD(1-3)/Fever >100.5/MEZA Albuterol 2.5 mg 10/19/19 01:19 Proventil IH Q4HRT PRN Shortness Of Breath Aspirin 81 mg 10/19/19 15:00 10/20/19 11:50 Halfprin Ec PO Not Given QDAY MARYA Carvedilol 6.25 mg 10/19/19 14:00 10/20/19 11:50 Coreg PO Not Given BID MARYA Clonazepam 0.5 mg 10/19/19 22:00 10/20/19 11:52 Klonopin PO Not Given BID MARYA Clonidine HCl 0.2 mg 10/19/19 14:00 10/20/19 11:50 Catapres PO Not Given BID MARYA Fluoxetine HCl 20 mg 10/19/19 10:00 10/20/19 11:52 Prozac PO Not Given DAILY MARYA Hydralazine HCl 25 mg 10/19/19 14:00 10/20/19 15:16 Apresoline PO Not Given TID MARYA Levetiracetam 1,000 mg/ 110 mls @ 400 mls/hr 10/20/19 08:17 10/20/19 11:51 Dextrose IV Not Given Q12HR MARYA Lacosamide 200 mg/ Sodium 120 mls @ 100 mls/hr 10/20/19 10:00 10/20/19 11:02 Chloride IV 100 mls/hr Q12H MARYA Administration Valproate Sodium 1,000 mg/ 110 mls @ 100 mls/hr 10/20/19 11:00 10/20/19 11:10 Sodium Chloride IV 100 mls/hr Q8H MARYA Administration Dextrose/Sodium Chloride 1,000 mls @ 75 mls/hr 10/20/19 19:00 D5/0.45ns IV DIRECT MARYA Lorazepam 2 mg 10/20/19 08:17 10/20/19 15:00 Ativan IV 2 mg Q1H PRN Administration Seizures Lorazepam 2 mg 10/20/19 08:30 Ativan IV 10/21/19 08:31 ONCE MARYA Montelukast Sodium 10 mg 10/19/19 18:00 10/20/19 18:00 Singulair PO Not Given QPM MARYA Ondansetron HCl 4 mg 10/18/19 14:55 10/19/19 22:07 Zofran IV 4 mg Q8H PRN Administration Nausea And Vomiting Oxycodone/Acetaminophen 1 tab 10/19/19 23:51 10/20/19 04:22 Percocet 5/325 PO 10/20/19 23:59 1 tab Q4H PRN Administration Pain, Moderate (4-6) Pantoprazole Sodium 40 mg 10/19/19 12:00 10/20/19 09:46 Protonix IV 40 mg BID MARYA Administration Potassium Chloride 20 meq 10/20/19 10:00 10/20/19 11:51 K-Dur PO Not Given QDAY MARYA Sodium Chloride 10 ml 10/18/19 22:00 10/20/19 09:32 Sodium Chloride Flush Syringe 10 Ml IV 10 ml BID MARYA Administration Sodium Chloride 10 ml 10/18/19 14:55 Sodium Chloride Flush Syringe 10 Ml IV PRN PRN LINE FLUSH
--- NOTE | 2019-10-20 18:31 | Gastroenterology Progress Note ---
Assessment and Plan GI: epigastric/chest pain - consider EGD based on progress - continue PPI qd - seizures per primary team - will follow Subjective Date of service: 10/20/19 Interval history: pt w/ seizures today, no GI issues Objective - Constitutional Vitals: Temp Pulse Resp BP Pulse Ox 97.8 F 80 20 145/98 100 10/20/19 04:49 10/20/19 11:15 10/20/19 11:15 10/20/19 11:15 10/20/19 11:15 General appearance: no acute distress - EENT Eyes: PERRL - Respiratory Respiratory: bilateral: CTA - Cardiovascular Rhythm: regular Heart Sounds: Present: S1 & S2 - Gastrointestinal General gastrointestinal: Present: soft, non-tender, non-distended - Labs CBC & Chem 7: 10/20/19 13:12 10/20/19 13:12 Labs: Laboratory Results - last 24 hr 10/20/19 10/20/19 10/20/19 08:14 12:12 13:12 WBC 4.9 RBC 4.43 Hgb 13.2 Hct 39.4 MCV 89 MCH 30 MCHC 33 RDW 13.1 L Plt Count 146 Sodium Potassium Chloride Carbon Dioxide Anion Gap BUN Creatinine Estimated GFR BUN/Creatinine Ratio Glucose POC Glucose 127 H 91 Calcium Phosphorus Magnesium 10/20/19 13:12 WBC RBC Hgb Hct MCV MCH MCHC RDW Plt Count Sodium 143 Potassium 4.0 Chloride 101.7 Carbon Dioxide 28 Anion Gap 17 BUN 9 Creatinine 1.1 Estimated GFR > 60 BUN/Creatinine Ratio 8 Glucose 98 POC Glucose Calcium 8.3 L Phosphorus 2.70 Magnesium 2.00
[2019-10-20] MEDS ORDERED: LACOSAMIDE 200 MG in SODIUM CHLORIDE 0.9% 100 ML IV SCH (21:00)
[2019-10-21] MEDS: LORazepam 2 MG/ML VIAL IV SCH ×2 (03:50→04:55)
[2019-10-21] MEDS: VALPROATE SODIUM 1,000 MG in SODIUM CHLORIDE 0.9% 100 ML IV SCH ×3 (03:56→21:02)
[2019-10-21] MEDS: D5W/0.45% NACL 1,000 ML IV SCH ×2 (05:29→21:16)
[2019-10-21] MEDS: LORazepam 2 MG/ML VIAL IV PRN ×5 (08:41→17:32)
--- NOTE | 2019-10-21 08:51 | Progress Note ---
Assessment and Plan Assessment and plan: Chest pain Cardiology consulted in ED, serial cardiac enzymes, EKG, stress test from previous admission reviewed, PPI therapy, supportive care. Cardiology wants GI eval before possible cardiac cath I spoke to Dr. Ekaterina Murphy on hold because of seizures Breakthrough seizures. Code MET called morning of 10/20 for seizures Seizures for about 25 mins, stopped after 4 doses of Ativan. She had more seizu res in afternoon therefore transferred to ICU More seizures overnight and today Keppra, Locasamide, Depakote now given iv Will obtain CT head Neurology following Abdominal pain,upper CT scan abdomen and pelvis, serial abdominal exams, no acute findings on CT scan of abdomen and pelvis. GI eval Hypertension Monitor blood pressure every shift, continue medical management. Chronic systolic congestive heart failure Strict I's/O, daily weight, BNP, submental oxygen, afterload reduction, Seizure disorder Continue medical management, seizure precautions, supportive care. DVT prophylaxis: SCD to bilateral lower extremities while in bed, Patient is ambulatory. History Interval history: Code MET called morning of 10/20 for seizures Seizures for about 25 mins, stopped after 4 doses of Ativan. She had more seizures in afternoon therefore transferred to ICU More seizures overnight and today Hospitalist Physical - Physical exam Narrative exam: General appearance: Present: obese - EENT Eyes: Present: PERRL ENT: hearing intact, clear oral mucosa - Neck Neck: Present: supple, normal ROM - Respiratory Respiratory effort: normal Respiratory: bilateral: CTA - Cardiovascular Heart Sounds: Present: S1 & S2. Absent: rub, click - Extremities Extremities: pulses symmetrical, No edema Peripheral Pulses: within normal limits - Abdominal General gastrointestinal: Present: soft, non-tender, non-distended, normal bowel sounds Female genitourinary: Present: normal - Integumentary Integumentary: Present: clear, warm, dry - Musculoskeletal Musculoskeletal: gait normal, strength equal bilaterally - Psychiatric Psychiatric: appropriate mood/affect, intact judgment & insight - Neurologic Neurologic: Sedated after seizures - Constitutional Vitals: Temp Pulse Resp BP Pulse Ox 97.2 F L 86 15 138/101 96 10/21/19 03:29 10/21/19 06:40 10/21/19 06:40 10/21/19 06:40 10/21/19 08:35 General appearance: Present: no acute distress DAVE score - Dave Score Age > 65: (0) No Aspirin use within the Past 7 Days: (1) Yes 3 or more CAD Risk Factors: (0) No 2 or more Angina events in past 24 hrs: (1) Yes Known CAD with more than 50% Stenosis: (0) No Elevated Cardiac Markers: (0) No ST Deviation Greater than 0.5mm: (0) No DAVE Score: 2 Results - Labs CBC & Chem 7: 10/20/19 13:12 10/20/19 13:12 Labs: Laboratory Last Values WBC 4.9 K/mm3 (4.5-11.0) 10/20/19 13:12 RBC 4.43 M/mm3 (3.65-5.03) 10/20/19 13:12 Hgb 13.2 gm/dl (10.1-14.3) 10/20/19 13:12 Hct 39.4 % (30.3-42.9) 10/20/19 13:12 MCV 89 fl (79-97) 10/20/19 13:12 MCH 30 pg (28-32) 10/20/19 13:12 MCHC 33 % (30-34) 10/20/19 13:12 RDW 13.1 % (13.2-15.2) L 10/20/19 13:12 Plt Count 146 K/mm3 (140-440) 10/20/19 13:12 Lymph % (Auto) 39.6 % (13.4-35.0) H 10/18/19 12:28 Cottle % (Auto) 7.8 % (0.0-7.3) H 10/18/19 12:28 Eos % (Auto) 2.6 % (0.0-4.3) 10/18/19 12:28 Baso % (Auto) 0.9 % (0.0-1.8) 10/18/19 12:28 Lymph # 2.1 K/mm3 (1.2-5.4) 10/18/19 12:28 Cottle # 0.4 K/mm3 (0.0-0.8) 10/18/19 12:28 Eos # 0.1 K/mm3 (0.0-0.4) 10/18/19 12:28 Baso # 0.0 K/mm3 (0.0-0.1) 10/18/19 12:28 Seg Neutrophils % 49.1 % (40.0-70.0) 10/18/19 12:28 Seg Neutrophils # 2.6 K/mm3 (1.8-7.7) 10/18/19 12:28 PT 13.4 Sec. (12.2-14.9) 10/18/19 12:28 INR 1.01 (0.87-1.13) 10/18/19 12:28 APTT 25.3 Sec. (24.2-36.6) 10/18/19 12:28 D-Dimer 230.08 ng/mlDDU (0-234) 10/18/19 12:28 Sodium 143 mmol/L (137-145) 10/20/19 13:12 Potassium 4.0 mmol/L (3.6-5.0) 10/20/19 13:12 Chloride 101.7 mmol/L (98-107) 10/20/19 13:12 Carbon Dioxide 28 mmol/L (22-30) 10/20/19 13:12 Anion Gap 17 mmol/L 10/20/19 13:12 BUN 9 mg/dL (7-17) 10/20/19 13:12 Creatinine 1.1 mg/dL (0.7-1.2) 10/20/19 13:12 Estimated GFR > 60 ml/min 10/20/19 13:12 BUN/Creatinine Ratio 8 % 10/20/19 13:12 Glucose 98 mg/dL (65-100) 10/20/19 13:12 POC Glucose 93 (70-105) 10/20/19 21:07 Calcium 8.3 mg/dL (8.4-10.2) L 10/20/19 13:12 Phosphorus 2.70 mg/dL (2.5-4.5) 10/20/19 13:12 Magnesium 2.00 mg/dL (1.7-2.3) 10/20/19 13:12 Total Bilirubin 0.40 mg/dL (0.1-1.2) 10/18/19 12:28 AST 22 units/L (5-40) 10/18/19 12:28 ALT 21 units/L (7-56) 10/18/19 12:28 Alkaline Phosphatase 65 units/L (35-129) 10/18/19 12:28 Troponin T < 0.010 ng/mL (0.00-0.029) 10/18/19 18:41 NT-Pro-B Natriuret Pep 214.2 pg/mL (0-450) 10/18/19 15:02 Total Protein 7.0 g/dL (6.3-8.2) 10/18/19 12:28 Albumin 4.1 g/dL (3.9-5) 10/18/19 12:28 Albumin/Globulin Ratio 1.4 % 10/18/19 12:28 Lipase 14 units/L (13-60) 10/18/19 12:28 Valproic Acid 85.9 ug/mL (50-100) 10/18/19 12:28 Active Medications - Current Medications Current Medications: Generic Name Dose Route Start Last Admin Trade Name Freq PRN Reason Stop Dose Admin Acetaminophen 650 mg 10/18/19 14:55 10/19/19 04:33 Tylenol PO 650 mg Q4H PRN Administration Pain MILD(1-3)/Fever >100.5/MEZA Albuterol 2.5 mg 10/19/19 01:19 Proventil IH Q4HRT PRN Shortness Of Breath Aspirin 81 mg 10/19/19 15:00 10/20/19 11:50 Halfprin Ec PO Not Given QDAY MARYA Carvedilol 6.25 mg 10/19/19 14:00 10/20/19 23:26 Coreg PO Not Given BID MARYA Clonazepam 0.5 mg 10/19/19 22:00 10/20/19 23:31 Klonopin PO Not Given BID MARYA Clonidine HCl 0.2 mg 10/19/19 14:00 10/20/19 23:26 Catapres PO Not Given BID MARYA Fluoxetine HCl 20 mg 10/19/19 10:00 10/20/19 11:52 Prozac PO Not Given DAILY MARYA Hydralazine HCl 25 mg 10/19/19 14:00 10/20/19 20:00 Apresoline PO Not Given TID MARYA Levetiracetam 1,000 mg/ 110 mls @ 400 mls/hr 10/20/19 08:17 10/20/19 23:00 Dextrose IV 400 mls/hr Q12HR MARYA Administration Lacosamide 200 mg/ Sodium 120 mls @ 100 mls/hr 10/20/19 10:00 10/20/19 19:00 Chloride IV 100 mls/hr Q12H MARYA Administration Valproate Sodium 1,000 mg/ 110 mls @ 100 mls/hr 10/20/19 11:00 10/21/19 03:56 Sodium Chloride IV 100 mls/hr Q8H MARYA Administration Dextrose/Sodium Chloride 1,000 mls @ 75 mls/hr 10/20/19 19:00 10/21/19 05:29 D5/0.45ns IV 75 mls/hr DIRECT MARYA Administration Lorazepam 2 mg 10/20/19 08:17 10/21/19 08:41 Ativan IV 2 mg Q1H PRN Administration Seizures Montelukast Sodium 10 mg 10/19/19 18:00 10/20/19 18:00 Singulair PO Not Given QPM MARYA Ondansetron HCl 4 mg 10/18/19 14:55 10/19/19 22:07 Zofran IV 4 mg Q8H PRN Administration Nausea And Vomiting Pantoprazole Sodium 40 mg 10/19/19 12:00 10/20/19 23:22 Protonix IV 40 mg BID MARYA Administration Potassium Chloride 20 meq 10/20/19 10:00 10/20/19 11:51 K-Dur PO Not Given QDAY MARYA Sodium Chloride 10 ml 10/18/19 22:00 10/20/19 23:27 Sodium Chloride Flush Syringe 10 Ml IV 10 ml BID MARYA Administration Sodium Chloride 10 ml 10/18/19 14:55 Sodium Chloride Flush Syringe 10 Ml IV PRN PRN LINE FLUSH
[2019-10-21] MEDS: LACOSAMIDE 200 MG in SODIUM CHLORIDE 0.9% 100 ML IV SCH ×2 (10:00→23:06)
[2019-10-21] MEDS: hydrALAZINE 25 MG TAB PO SCH ×3 (11:19→21:03)
[2019-10-21] MEDS: cloNIDine 0.2 MG TAB PO SCH ×2 (11:20→23:27)
[2019-10-21] MEDS: POTASSIUM CHLORIDE ER 20 MEQ TAB PO SCH (11:21)
[2019-10-21] MEDS: clonazePAM 0.5 MG TAB PO SCH ×2 (11:21→23:22)
[2019-10-21] MEDS: carvediloL 6.25 MG TAB PO SCH ×2 (11:21→23:21)
[2019-10-21] MEDS: ASPIRIN EC 81 MG TAB PO SCH (11:21)
[2019-10-21] MEDS: FLUoxetine 20 MG CAP PO SCH (11:22)
[2019-10-21] MEDS: levETIRAcetam 1,000 MG in DEXTROSE 5% IN WATER 100 ML IV SCH (11:31)
[2019-10-21] MEDS: PANTOPRAZOLE 40 MG INJ IV SCH ×2 (11:32→23:07)
[2019-10-21] MEDS ORDERED: hydrALAZINE 20 MG/1 ML INJ IV PRN (15:14)
--- NOTE | 2019-10-21 15:55 | Gastroenterology Progress Note ---
Assessment and Plan GI: pt seen for epigastric pain with consideration for egd prior to seizures - PPI qd - will consider EGD inpt vs outpt based on progress w/ no plans at this time - will sign off for now, call when stable and if still wants GI to consider EGD as inpt Subjective Date of service: 10/21/19 Interval history: - pt still w/ seizures, no specific GI complaints Objective - Constitutional Vitals: Temp Pulse Resp BP Pulse Ox 97.2 F L 86 15 187/121 96 10/21/19 03:29 10/21/19 06:40 10/21/19 06:40 10/21/19 08:00 10/21/19 08:35 General appearance: no acute distress - EENT Eyes: PERRL - Respiratory Respiratory: bilateral: CTA - Cardiovascular Rhythm: regular Heart Sounds: Present: S1 & S2 - Gastrointestinal General gastrointestinal: Present: soft, non-tender, non-distended - Labs CBC & Chem 7: 10/20/19 13:12 10/20/19 13:12 Labs: Laboratory Results - last 24 hr 10/20/19 10/20/19 10/21/19 19:28 21:07 08:46 POC Glucose 78 93 118 H 10/21/19 12:49 POC Glucose 103
--- NOTE | 2019-10-21 16:18 | Progress Note ---
Subjective Date of service: 10/21/19 Interval history: see my dsictated mnote on this patient I do noT see activce epiuleptic seizures at this point this is post a third dose of sativan it could be trhese are non epileptic seizures and some form of " seizure like state " aggfravated by ativcan will get CT of head I SPOKE TO THE FAMILY A LONG TIME ANS ASESSED PATIENTAS SHE IS BJORN HEAVILY SDATED FROM [address] DOSEATIVAN. ONE CURIOUS ISSSUE IS THAT DEPAKOTE VEEVEL IS TOTALLY THERAPEUTIC ON VERY RELIABLE SIGN IS MAREK BREATHING IS ENTIRELY STABLE THAT SUGGESTS THEY ARE NO EPILEPTIC BUT THIS BEARS FURTHER OBSERVATION WE SHALL SEE Objective - Vital Sign Vital Signs - 12hr 10/21/19 10/21/19 10/21/19 04:20 04:30 04:40 Pulse Rate 85 79 79 Respiratory 18 18 19 Rate Blood Pressure 138/101 138/101 138/101 O2 Sat by Pulse 100 100 100 Oximetry 10/21/19 10/21/19 10/21/19 04:50 05:00 05:10 Pulse Rate 75 96 H 73 Respiratory 16 17 16 Rate Blood Pressure 138/101 138/101 138/101 O2 Sat by Pulse 100 99 96 Oximetry 10/21/19 10/21/19 10/21/19 05:20 05:30 05:40 Pulse Rate 84 77 74 Respiratory 19 16 16 Rate Blood Pressure 138/101 138/101 138/101 O2 Sat by Pulse 99 100 97 Oximetry 10/21/19 10/21/19 10/21/19 05:50 06:00 06:10 Pulse Rate 80 78 76 Respiratory 14 18 19 Rate Blood Pressure 138/101 138/101 138/101 O2 Sat by Pulse 99 98 96 Oximetry 10/21/19 10/21/19 10/21/19 06:20 06:30 06:40 Pulse Rate 83 85 86 Respiratory 17 15 15 Rate Blood Pressure 138/101 138/101 138/101 O2 Sat by Pulse 92 95 96 Oximetry 10/21/19 10/21/19 08:00 08:35 Pulse Rate Respiratory Rate Blood Pressure 187/121 O2 Sat by Pulse 96 Oximetry - Laboratory Findings CBC and BMP: 10/20/19 13:12 10/20/19 13:12 Abnormal Lab Findings: Abnormal Labs 10/18/19 10/18/19 10/20/19 12:28 12:28 08:14 RDW Lymph % (Auto) 39.6 H [place] % (Auto) 7.8 H Chloride 97.8 L Glucose 122 H POC Glucose 127 H Calcium 10/20/19 10/20/19 10/21/19 13:12 13:12 08:46 RDW 13.1 L Lymph % (Auto) [place] % (Auto) Chloride Glucose POC Glucose 118 H Calcium 8.3 L
--- NOTE | 2019-10-21 17:07 | Cat Scan Report ---
CT head/brain wo con INDICATION: seizures. TECHNIQUE: Routine CT head without contrast. All CT scans at this location are performed using CT dos e reduction for ALARA by means of automated exposure control. COMPARISON: Brain MRI on 12-05-18. FINDINGS: BRAIN / INTRACRANIAL CONTENTS: No acute hemorrhage, mass effect, midline shift, or hydrocephalus. No appreciable acute large territorial or lacunar infarct. No chronic infarct or focal atrophy. Normal b rain volume and ventricular/sulcal size for age. ORBITS: No significant abnormality of visualized orbits. SINUSES / MASTOIDS: No significant abnormality of visualized sinuses and mastoid air cells. ADDITIONAL FINDINGS: None. IMPRESSION: 1. No acute intracranial abnormality. Signer Name: Johann Figueredo MD Signed: 10/21/2019 5:02 PM Workstation Name: [id number]
[2019-10-21] MEDS: LOSARTAN 50 MG TAB PO SCH (21:14)
[2019-10-21] MEDS: MONTELUKAST 10 MG TAB PO SCH (21:15)
--- NOTE | 2019-10-21 23:01 | Consultation ---
HISTORY OF PRESENT ILLNESS: This is a 49-year-old black female that was initially admitted to [facility] for chest pain. Subsequent to admission, she began to have episodes that were characterized with a seizure-like activity, received doses of Ativan and then had repeat problems with seizures. She was eventually transferred to the ICU in room #266. I came to see the patient shortly after that, observed that the patient was postictal, not very arousable, seizures had stopped and the patient's condition was otherwise stable. At that point, I monitored her blood level of valproic acid, which was therapeutic and noted that she was continuing on the Depakote and Vimpat. In the interval, the patient's condition stabilized; then again this afternoon, she began to have further seizures. She was then given a total of 3 doses of Ativan by the nurses who noticed her to have jerking like movements that characterize the seizures. During that period Dr. Chiang was around and may have seen the patient. I do not see him here in the ICU at present time to get more of a distinct history from him. I came and saw the patient after being called by the nurses at the bedside. The patient was noted to be breathing well, stable vital signs, but quite sleepy at this point and not very arousable. Her 2 brothers were at the bedside and I obtained further history from them. What is interesting about this lady is that she has had episodes like this before in [facility] [place] and she was on a video monitor probably to neurology. I was told then that the tele neurologist felt in the past she was not having true epileptic seizures, but it was unclear as to exactly what was going on. She apparently has been hospitalized here at [facility] at least 3 or 4 times and from what I was told, each time her medicines were changed. I do not know that she sees a neurologist, but she had been taking, on admission, Depakote and Vimpat, although history indicates that she may have taken Keppra in the past as well. At this point, I recommend the patient get a CT of the head be done as soon as possible. I will assess that. Clearly, the patient is post receiving a third dose of Ativan. She is quite sedated at this point. I do not see her having any further jerking like movements or seizure activity. It is altogether unclear that she may be having some form of treatment resistant epilepsy because her valproic acid level is therapeutic and she was taking Vimpat, but I did also not get a very clear history as to whether she has skipped any of her doses of Klonopin. I had made a note about this issue yesterday thinking perhaps she had stopped taking Klonopin, it was in some form of drug withdrawal. I cannot be sure of that as accurate history is not obtainable at this point. My recommendation is to get a CT scan. Getting an EEG will be highly useful to differentiate pseudoepilepsy from epileptic seizures versus nonepileptic seizures and the whole issue as to whether Ativan can trigger nonepileptic seizures is entirely unclear in my mind. I cannot discount that entirely as a part of the differential diagnosis, but obviously it is highly unusual for an epileptic drug like Ativan to trigger a nonepileptic seizure, but I cannot see that that could be ruled out without getting an EEG. PLAN: To further assess the patient. JOB# [id number] POLLY/INDIO
[2019-10-21] MEDS: HEPARIN 5,000 UNIT/1 ML VIAL SUB-Q SCH (23:07)
[2019-10-22] MEDS: VALPROATE SODIUM 1,000 MG in SODIUM CHLORIDE 0.9% 100 ML IV SCH ×3 (04:11→19:49)
[2019-10-22] MEDS: levETIRAcetam 1,500 MG in DEXTROSE 5% IN WATER 100 ML IV SCH ×2 (04:20→09:22)
[2019-10-22] MEDS: HEPARIN 5,000 UNIT/1 ML VIAL SUB-Q SCH ×3 (06:00→23:45)
[2019-10-22 07:28] LABS: Hematocrit 39.7 % (30.3-42.9); Hemoglobin 13.3 gm/dl (10.1-14.3); Mean Corpuscular HGB Conc 33 % (30-34); Mean Corpuscular Volume 89 fl (79-97); Red Blood Count 4.46 M/mm3 (3.65-5.03); Red Cell Distribution Width 13.2 % (13.2-15.2)
[2019-10-22 07:52] LABS: Platelet Count 107 K/mm3 (140-440)
[2019-10-22 07:55] LABS: Hemolysis Index 181
[2019-10-22 08:07] LABS: BUN/Creatinine Ratio TNR; Blood Urea Nitrogen TNR mg/dL (7-17); Calcium TNR mg/dL (8.4-10.2)
[2019-10-22] MEDS: clonazePAM 0.5 MG TAB PO SCH ×2 (09:24→23:46)
[2019-10-22] MEDS: hydrALAZINE 25 MG TAB PO SCH ×3 (09:24→19:52)
--- NOTE | 2019-10-22 09:27 | Progress Note ---
Assessment and Plan Assessment and plan: Chest pain Cardiology consulted in ED, serial cardiac enzymes, EKG, stress test from previous admission reviewed, PPI therapy, supportive care. Cardiology wants GI eval before possible cardiac cath I spoke to Dr. Ekaterina Murphy on hold because of seizures Breakthrough seizures. Code MET called morning of 10/20 for seizures. Seizures for about 25 mins, stopped after 4 doses of Ativan. She had more seizures in afternoon therefore transferred to [facility]. No more seizures since yesterday Keppra, Locasamide, Depakote now given iv CT head unremarkable Neurology following Abdominal pain,upper CT scan abdomen and pelvis, serial abdominal exams, no acute findings on CT scan of abdomen and pelvis. GI evaluated Hypertension Monitor blood pressure every shift, continue medical management. Chronic systolic congestive heart failure Strict I's/O, daily weight, BNP, submental oxygen, afterload reduction, DVT prophylaxis: SCD to bilateral lower extremities while in bed, Patient is ambulatory. Heparin subcut 10/22: No more seizures since yesterday. For EEG today. Poss transfer back to 3rd floor this afternoon. GI and Cardiology to follow. Spoke to brother at bedside. Brother says she only get seizures when in hospital and believes this may be due to medications in hospital. I discussed this with Pharmacy and they say there is a possibility Sucralfate can decrease absorption of antiseizure meds, therefore discontinued on sat 10/21/19 after initial seizures. History Interval history: Code MET called morning of 10/20 for seizures Seizures for about 25 mins, stopped after 4 doses of Ativan. She had more seizures in afternoon therefore transferred to [facility] Last seizures was yesterday afternoon Hospitalist Physical - Physical exam Narrative exam: General appearance: Present: obese - EENT Eyes: Present: PERRL ENT: hearing intact, clear oral mucosa - Neck Neck: Present: supple, normal ROM - Respiratory Respiratory effort: normal Respiratory: bilateral: CTA - Cardiovascular Heart Sounds: Present: S1 & S2. Absent: rub, click - Extremities Extremities: pulses symmetrical, No edema Peripheral Pulses: within normal limits - Abdominal General gastrointestinal: Present: soft, non-tender, non-distended, normal bowel sounds Female genitourinary: Present: normal - Integumentary Integumentary: Present: clear, warm, dry - Musculoskeletal Musculoskeletal: gait normal, strength equal bilaterally - Psychiatric Psychiatric: appropriate mood/affect, intact judgment & insight - Neurologic Neurologic: Sedated after seizures - Constitutional Vitals: Temp Pulse Resp BP Pulse Ox 98.4 F 79 14 124/86 100 10/22/19 04:00 10/22/19 05:10 10/22/19 05:10 10/22/19 05:10 10/22/19 08:27 General appearance: Present: no acute distress DAVE score - Dave Score Age > 65: (0) No Aspirin use within the Past 7 Days: (1) Yes 3 or more CAD Risk Factors: (0) No 2 or more Angina events in past 24 hrs: (1) Yes Known CAD with more than 50% Stenosis: (0) No Elevated Cardiac Markers: (0) No ST Deviation Greater than 0.5mm: (0) No DAVE Score: 2 Results - Labs CBC & Chem 7: 10/22/19 06:28 10/22/19 09:23 Labs: Laboratory Last Values WBC 6.3 K/mm3 (4.5-11.0) 10/22/19 06:28 RBC 4.46 M/mm3 (3.65-5.03) 10/22/19 06:28 Hgb 13.3 gm/dl (10.1-14.3) 10/22/19 06:28 Hct 39.7 % (30.3-42.9) 10/22/19 06:28 MCV 89 fl (79-97) 10/22/19 06:28 MCH 30 pg (28-32) 10/22/19 06:28 MCHC 33 % (30-34) 10/22/19 06:28 RDW 13.2 % (13.2-15.2) 10/22/19 06:28 Plt Count 107 K/mm3 (140-440) L 10/22/19 06:28 Lymph % (Auto) 39.6 % (13.4-35.0) H 10/18/19 12:28 [place] % (Auto) 7.8 % (0.0-7.3) H 10/18/19 12:28 Eos % (Auto) 2.6 % (0.0-4.3) 10/18/19 12:28 Baso % (Auto) 0.9 % (0.0-1.8) 10/18/19 12:28 Lymph # 2.1 K/mm3 (1.2-5.4) 10/18/19 12:28 Logan # 0.4 K/mm3 (0.0-0.8) 10/18/19 12:28 Eos # 0.1 K/mm3 (0.0-0.4) 10/18/19 12:28 Baso # 0.0 K/mm3 (0.0-0.1) 10/18/19 12:28 Seg Neutrophils % 49.1 % (40.0-70.0) 10/18/19 12:28 Seg Neutrophils # 2.6 K/mm3 (1.8-7.7) 10/18/19 12:28 PT 13.4 Sec. (12.2-14.9) 10/18/19 12:28 INR 1.01 (0.87-1.13) 10/18/19 12:28 APTT 25.3 Sec. (24.2-36.6) 10/18/19 12:28 D-Dimer 230.08 ng/mlDDU (0-234) 10/18/19 12:28 Sodium TNR 10/22/19 06:28 Potassium TNR 10/22/19 06:28 Chloride TNR 10/22/19 06:28 Carbon Dioxide TNR 10/22/19 06:28 Anion Gap TNR 10/22/19 06:28 BUN TNR 10/22/19 06:28 Creatinine TNR 10/22/19 06:28 Estimated GFR TNR 10/22/19 06:28 BUN/Creatinine Ratio TNR 10/22/19 06:28 Glucose TNR 10/22/19 06:28 POC Glucose 131 (70-105) H 10/22/19 05:12 Calcium TNR 10/22/19 06:28 Phosphorus 2.70 mg/dL (2.5-4.5) 10/20/19 13:12 Magnesium 2.00 mg/dL (1.7-2.3) 10/20/19 13:12 Total Bilirubin 0.40 mg/dL (0.1-1.2) 10/18/19 12:28 AST 22 units/L (5-40) 10/18/19 12:28 ALT 21 units/L (7-56) 10/18/19 12:28 Alkaline Phosphatase 65 units/L (35-129) 10/18/19 12:28 Troponin T < 0.010 ng/mL (0.00-0.029) 10/18/19 18:41 NT-Pro-B Natriuret Pep 214.2 pg/mL (0-450) 10/18/19 15:02 Total Protein 7.0 g/dL (6.3-8.2) 10/18/19 12:28 Albumin 4.1 g/dL (3.9-5) 10/18/19 12:28 Albumin/Globulin Ratio 1.4 % 10/18/19 12:28 Lipase 14 units/L (13-60) 10/18/19 12:28 Valproic Acid 85.9 ug/mL (50-100) 10/18/19 12:28 Active Medications - Current Medications Current Medications: Generic Name Dose Route Start Last Admin Trade Name Freq PRN Reason Stop Dose Admin Acetaminophen 650 mg 10/18/19 14:55 10/19/19 04:33 Tylenol PO 650 mg Q4H PRN Administration Pain MILD(1-3)/Fever >100.5/MEZA Albuterol 2.5 mg 10/19/19 01:19 Proventil IH Q4HRT PRN Shortness Of Breath Aspirin 81 mg 10/19/19 15:00 10/21/19 11:21 Halfprin Ec PO Not Given QDAY MARYA Carvedilol 6.25 mg 10/19/19 14:00 10/21/19 23:21 Coreg PO 6.25 mg BID MARYA Administration Clonazepam 0.5 mg 10/19/19 22:00 10/21/19 23:22 Klonopin PO 0.5 mg BID MARYA Administration Clonidine HCl 0.2 mg 10/19/19 14:00 10/21/19 23:27 Catapres PO 0.2 mg BID MARYA Administration Fluoxetine HCl 20 mg 10/19/19 10:00 10/21/19 11:22 Prozac PO Not Given DAILY MARYA Heparin Sodium (Porcine) 5,000 unit 10/21/19 22:00 10/22/19 06:00 Heparin SUB-Q 5,000 unit Q8HR MARYA Administration Hydralazine HCl 25 mg 10/19/19 14:00 10/21/19 21:03 Apresoline PO 25 mg TID MARYA Administration Hydralazine HCl 10 mg 10/21/19 15:14 Apresoline IV Q4HR PRN SBP>160 or DBP>110 Lacosamide 200 mg/ Sodium 120 mls @ 100 mls/hr 10/20/19 10:00 10/21/19 23:06 Chloride IV 100 mls/hr Q12H MARYA Administration Valproate Sodium 1,000 mg/ 110 mls @ 100 mls/hr 10/20/19 11:00 10/22/19 04:11 Sodium Chloride IV 100 mls/hr Q8H MARYA Administration Dextrose/Sodium Chloride 1,000 mls @ 75 mls/hr 10/20/19 19:00 10/21/19 21:16 D5/0.45ns IV 75 mls/hr DIRECT MARYA Administration Levetiracetam 1,500 mg/ 115 mls @ 400 mls/hr 10/21/19 23:00 10/22/19 04:20 Dextrose IV 400 mls/hr Q12HR MARYA Administration Lorazepam 2 mg 10/20/19 08:17 10/21/19 17:32 Ativan IV 2 mg Q1H PRN Administration Seizures Losartan Potassium 100 mg 10/21/19 16:00 10/21/19 21:14 Cozaar PO 100 mg QDAY MARYA Administration Montelukast Sodium 10 mg 10/19/19 18:00 10/21/19 21:15 Singulair PO 10 mg QPM MARYA Administration Ondansetron HCl 4 mg 10/18/19 14:55 10/19/19 22:07 Zofran IV 4 mg Q8H PRN Administration Nausea And Vomiting Pantoprazole Sodium 40 mg 10/19/19 12:00 10/21/19 23:07 Protonix IV 40 mg BID MARYA Administration Potassium Chloride 20 meq 10/20/19 10:00 10/21/19 11:21 K-Dur PO Not Given QDAY MARYA Sodium Chloride 10 ml 10/18/19 22:00 10/21/19 23:23 Sodium Chloride Flush Syringe 10 Ml IV 10 ml BID MARYA Administration Sodium Chloride 10 ml 10/18/19 14:55 Sodium Chloride Flush Syringe 10 Ml IV PRN PRN LINE FLUSH
[2019-10-22] MEDS: LORazepam 2 MG/ML VIAL IV PRN (09:38)
[2019-10-22] MEDS: ASPIRIN EC 81 MG TAB PO SCH (09:39)
[2019-10-22] MEDS: FLUoxetine 20 MG CAP PO SCH (09:40)
[2019-10-22] MEDS: carvediloL 6.25 MG TAB PO SCH ×2 (09:40→23:44)
[2019-10-22] MEDS: POTASSIUM CHLORIDE ER 20 MEQ TAB PO SCH (09:40)
[2019-10-22] MEDS: PANTOPRAZOLE 40 MG INJ IV SCH ×2 (09:40→23:46)
[2019-10-22] MEDS: cloNIDine 0.2 MG TAB PO SCH ×2 (09:41→23:29)
[2019-10-22] MEDS: LACOSAMIDE 200 MG in SODIUM CHLORIDE 0.9% 100 ML IV SCH ×2 (10:07→23:14)
[2019-10-22] MEDS: LOSARTAN 50 MG TAB PO SCH (10:20)
--- NOTE | 2019-10-22 10:28 | Progress Note ---
Subjective Date of service: 10/22/19 Interval history: THE ct OF THE HEAD WAS NBORMAL AND i EXPLAINED TO FAMILT PATIENT WOKE UP TOTALLY POST PROCEDURE THIS DOES BRENDA APPEAR TO BE EPILEPSY BUT WILL GET THE EEG Objective - Vital Sign Vital Signs - 12hr 10/21/19 10/21/19 10/21/19 22:30 22:40 22:50 Temperature Pulse Rate 104 H 103 H 98 H Pulse Rate [ From Monitor] Respiratory 20 21 19 Rate Blood Pressure 198/106 198/106 198/106 O2 Sat by Pulse 100 98 97 Oximetry 10/21/19 10/21/19 10/21/19 23:00 23:10 23:20 Temperature Pulse Rate 103 H 99 H 98 H Pulse Rate [ From Monitor] Respiratory 19 21 19 Rate Blood Pressure 198/106 198/106 149/107 O2 Sat by Pulse 100 100 99 Oximetry 10/21/19 10/21/19 10/21/19 23:21 23:27 23:30 Temperature Pulse Rate 99 H 99 H 96 H Pulse Rate [ From Monitor] Respiratory 21 Rate Blood Pressure 149/107 149/107 149/107 O2 Sat by Pulse 100 Oximetry 10/21/19 10/21/19 10/22/19 23:40 23:50 00:00 Temperature 97.6 F Pulse Rate Pulse Rate [ 93 H From Monitor] Respiratory 17 Rate Blood Pressure 149/107 149/107 166/104 O2 Sat by Pulse 100 100 99 Oximetry 10/22/19 10/22/19 10/22/19 00:10 00:20 00:30 Temperature Pulse Rate Pulse Rate [ From Monitor] Respiratory Rate Blood Pressure 166/104 166/104 166/104 O2 Sat by Pulse 99 99 99 Oximetry 10/22/19 10/22/19 10/22/19 00:40 00:50 01:00 Temperature Pulse Rate 95 H 93 H Pulse Rate [ From Monitor] Respiratory 17 17 Rate Blood Pressure 166/104 151/103 134/94 O2 Sat by Pulse 99 99 99 Oximetry 10/22/19 10/22/19 10/22/19 01:10 01:20 01:30 Temperature Pulse Rate 93 H 92 H 92 H Pulse Rate [ From Monitor] Respiratory 18 18 17 Rate Blood Pressure 134/94 134/94 134/94 O2 Sat by Pulse 100 100 100 Oximetry 02/17/20 02/17/20 02/17/20 01:40 01:50 02:00 Temperature Pulse Rate 91 H 91 H 90 Pulse Rate [ From Monitor] Respiratory 17 16 17 Rate Blood Pressure 134/94 134/94 154/85 O2 Sat by Pulse 100 100 100 Oximetry 10/22/19 10/22/19 10/22/19 02:10 02:20 02:30 Temperature Pulse Rate 89 89 87 Pulse Rate [ From Monitor] Respiratory 16 18 17 Rate Blood Pressure 154/85 154/85 154/85 O2 Sat by Pulse 100 100 100 Oximetry 10/22/19 10/22/19 10/22/19 02:40 02:50 03:00 Temperature Pulse Rate 87 86 85 Pulse Rate [ From Monitor] Respiratory 16 11 L 20 Rate Blood Pressure 154/85 154/85 132/89 O2 Sat by Pulse 100 98 100 Oximetry 10/22/19 10/22/19 10/22/19 03:10 03:20 03:30 Temperature Pulse Rate 83 82 82 Pulse Rate [ From Monitor] Respiratory 33 H 32 H 31 H Rate Blood Pressure 132/89 132/89 132/89 O2 Sat by Pulse 99 100 100 Oximetry 10/22/19 10/22/19 10/22/19 03:40 03:50 04:00 Temperature 98.4 F Pulse Rate 82 84 83 Pulse Rate [ 83 From Monitor] Respiratory 31 H 34 H 33 H Rate Blood Pressure 132/89 132/89 122/80 O2 Sat by Pulse 100 100 100 Oximetry 10/22/19 10/22/19 10/22/19 04:10 04:20 04:30 Temperature Pulse Rate 83 89 84 Pulse Rate [ From Monitor] Respiratory 18 17 19 Rate Blood Pressure 122/80 122/80 122/80 O2 Sat by Pulse 100 100 100 Oximetry 10/22/19 10/22/19 10/22/19 04:40 04:50 05:00 Temperature Pulse Rate 78 75 79 Pulse Rate [ From Monitor] Respiratory 17 20 Rate Blood Pressure 122/80 122/80 124/86 O2 Sat by Pulse 100 100 100 Oximetry 10/22/19 10/22/19 10/22/19 05:10 08:27 09:24 Temperature Pulse Rate 79 85 Pulse Rate [ From Monitor] Respiratory 14 Rate Blood Pressure 124/86 116/62 O2 Sat by Pulse 100 100 Oximetry 10/22/19 10/22/19 09:40 09:41 Temperature Pulse Rate 83 83 Pulse Rate [ From Monitor] Respiratory Rate Blood Pressure 116/62 116/62 O2 Sat by Pulse Oximetry - Laboratory Findings CBC and BMP: 10/22/19 06:28 10/22/19 06:28 Abnormal Lab Findings: Abnormal Labs 10/18/19 10/18/19 10/20/19 12:28 12:28 08:14 RDW Plt Count Lymph % (Auto) 39.6 H [place] % (Auto) 7.8 H Chloride 97.8 L Glucose 122 H POC Glucose 127 H Calcium 10/20/19 10/20/19 10/21/19 13:12 13:12 08:46 RDW 13.1 L Plt Count Lymph % (Auto) [place] % (Auto) Chloride Glucose POC Glucose 118 H Calcium 8.3 L 10/21/19 10/22/19 10/22/19 22:53 02:16 05:12 RDW Plt Count Lymph % (Auto) [place] % (Auto) Chloride Glucose POC Glucose 114 H 131 H 131 H Calcium 10/22/19 06:28 RDW Plt Count 107 L Lymph % (Auto) [place] % (Auto) Chloride Glucose POC Glucose Calcium
[2019-10-22 10:50] LABS: BUN/Creatinine Ratio 7; Blood Urea Nitrogen 6 mg/dL (7-17); Hemolysis Index 12
[2019-10-22] MEDS: levETIRAcetam 1,000 MG in DEXTROSE 5% IN WATER 100 ML IV SCH ×2 (11:40→23:28)
--- NOTE | 2019-10-22 16:44 | XRay Report ---
CHEST 1 VIEW 10/18/2019 11:52 AM INDICATION / CLINICAL INFORMATION: Chest Pain. COMPARISON: 07/14/19 FINDINGS: SUPPORT DEVICES: None. HEART / MEDIASTINUM: Heart is borderline enlarged. LUNGS / PLEURA: No significant pulmonary or pleural abnormality. No pneumothorax. ADDITIONAL FINDINGS: No significant additional findings. IMPRESSION: 1. Borderline cardiomegaly but no acute findings. Signer Name: Clementine Dimas MD Signed: 10/22/2019 4:39 PM Workstation Name: [id number]
[2019-10-22] MEDS: MONTELUKAST 10 MG TAB PO SCH (19:52)
[2019-10-23] MEDS: VALPROATE SODIUM 1,000 MG in SODIUM CHLORIDE 0.9% 100 ML IV SCH ×2 (03:01→11:44)
[2019-10-23] MEDS: D5W/0.45% NACL 1,000 ML IV SCH (05:22)
[2019-10-23] MEDS: hydrALAZINE 25 MG TAB PO SCH ×2 (09:20→22:39)
[2019-10-23] MEDS: LOSARTAN 50 MG TAB PO SCH (09:46)
[2019-10-23] MEDS: clonazePAM 0.5 MG TAB PO SCH ×2 (09:46→22:37)
[2019-10-23] MEDS: carvediloL 6.25 MG TAB PO SCH ×2 (09:47→22:40)
[2019-10-23] MEDS: POTASSIUM CHLORIDE ER 20 MEQ TAB PO SCH (09:47)
[2019-10-23] MEDS: FLUoxetine 20 MG CAP PO SCH (09:47)
[2019-10-23] MEDS: ASPIRIN EC 81 MG TAB PO SCH (09:47)
[2019-10-23] MEDS: cloNIDine 0.2 MG TAB PO SCH ×2 (09:47→22:37)
[2019-10-23] MEDS: PANTOPRAZOLE 40 MG TAB PO SCH ×2 (09:48→22:39)
[2019-10-23] MEDS: levETIRAcetam 1,000 MG in DEXTROSE 5% IN WATER 100 ML IV SCH ×2 (10:00→22:31)
[2019-10-23] MEDS: LACOSAMIDE 200 MG in SODIUM CHLORIDE 0.9% 100 ML IV SCH ×2 (10:36→23:36)
--- NOTE | 2019-10-23 13:06 | Progress Note ---
Assessment and Plan - Patient Problems (1) Generalized anxiety disorder Current Visit: No Status: Chronic Plan to address problem: It is possible that anxiety will be playing some role in patient's seizure. 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 Will treat anxiety. Anticipate discharge home to lessen anxiety when possible. Stable for transfer to floor today. (2) HTN (hypertension) Current Visit: No Status: Chronic Qualifiers: Hypertension type: essential hypertension Qualified Code(s): I10 - Essential (primary) hypertension Plan to address problem: Optimal control blood pressure continue present medical management. (3) Seizure Current Visit: No Status: Chronic Qualifiers: Convulsion type: unspecified Qualified Code(s): R56.9 - Unspecified convuls ions Plan to address problem: Patient with possible seizure this a.m. at 7. Will change Depakote to p.o. Possible pseudoseizure. Continue present management of seizure with p.o. medication in anticipation to discharge patient home. Can treat with Ativan as needed. When stable will discharge home to follow with primary neurologist. Brother wishes are to downgrade care for possible transfer to follow-up outpatient. (4) Abdominal pain Current Visit: Yes Status: Acute Plan to address problem: Abdominal pain has since resolved. Appears musculoskeletal left rib area. CT scan unremarkable. (5) DVT prophylaxis Current Visit: Yes Status: Acute (6) Acute chest pain Current Visit: No Status: Acute Plan to address problem: Patient chest pain unlike cardiac in origin. EKG negative serial isoenzymes negative. Will wait on cardiac catheterization until seizure work-up finished. This can also be done on outpatient basis. History Interval history: Patient at present appears to be much more alert. Patient did have another seizure around 7 AM this morning. Spoke to brother at length he is also of the understanding that patient's anxiety and nerves being in the hospital may be the cause of her seizure. Did review neurology evaluation and no clear evidence of active seizure at this time. Spoke with nurse they seem to feel that this was definitely identifiable seizure. Tolerated p.o. today very well. Hospitalist Physical - Constitutional Vitals: Temp Pulse Resp BP Pulse Ox 98.4 F 72 16 149/96 100 10/23/19 12:00 10/23/19 08:50 10/23/19 08:50 10/23/19 08:50 10/23/19 08:50 General appearance: Present: no acute distress, other (Patient is alert) - EENT Eyes: Present: PERRL ENT: hearing intact, clear oral mucosa, dentition normal - Neck Neck: Present: supple, normal ROM - Respiratory Respiratory: bilateral: CTA - Cardiovascular Rhythm: irregularly irregular - Extremities Extremities: no ischemia, pulses intact, pulses symmetrical, normal temperature, normal color Extremity abnormal: edema Peripheral Pulses: within normal limits - Abdominal General gastrointestinal: soft, non-tender, tender, normal bowel sounds, other (Obese), no hepatomegaly, no splenomegaly - Integumentary Integumentary: Present: clear, warm, dry - Psychiatric Psychiatric: appropriate mood/affect, intact judgment & insight - Neurologic Neurologic: CNII-XII intact, moves all extremities, other (Patient is alert no evidence of being postictal.) DAVE score - Dave Score Age > 65: (0) No Aspirin use within the Past 7 Days: (1) Yes 3 or more CAD Risk Factors: (0) No 2 or more Angina events in past 24 hrs: (1) Yes Known CAD with more than 50% Stenosis: (0) No Elevated Cardiac Markers: (0) No ST Deviation Greater than 0.5mm: (0) No DAVE Score: 2 Results - Labs CBC & Chem 7: 10/22/19 06:28 10/22/19 09:23 Labs: Laboratory Last Values WBC 6.3 K/mm3 (4.5-11.0) 10/22/19 06:28 RBC 4.46 M/mm3 (3.65-5.03) 10/22/19 06:28 Hgb 13.3 gm/dl (10.1-14.3) 10/22/19 06:28 Hct 39.7 % (30.3-42.9) 10/22/19 06:28 MCV 89 fl (79-97) 10/22/19 06:28 MCH 30 pg (28-32) 10/22/19 06:28 MCHC 33 % (30-34) 10/22/19 06:28 RDW 13.2 % (13.2-15.2) 10/22/19 06:28 Plt Count 107 K/mm3 (140-440) L 10/22/19 06:28 Lymph % (Auto) 39.6 % (13.4-35.0) H 10/18/19 12:28 [place] % (Auto) 7.8 % (0.0-7.3) H 10/18/19 12:28 Eos % (Auto) 2.6 % (0.0-4.3) 10/18/19 12: Baso % (Auto) 0.9 % (0.0-1.8) 10/18/19 12: Lymph # 2.1 K/mm3 (1.2-5.4) 10/18/19 12: [place] # 0.4 K/mm3 (0.0-0.8) 10/18/19 12: Eos # 0.1 K/mm3 (0.0-0.4) 10/18/19 12: Baso # 0.0 K/mm3 (0.0-0.1) 10/18/19 12: Seg Neutrophils % 49.1 % (40.0-70.0) 10/18/19 12: Seg Neutrophils # 2.6 K/mm3 (1.8-7.7) 10/18/19 12:28 PT 13.4 Sec. (12.2-14.9) 10/18/19 12: INR 1.01 (0.87-1.13) 10/18/19 12:28 APTT 25.3 Sec. (24.2-36.6) 10/18/19 12:28 D-Dimer 230.08 ng/mlDDU (0-234) 10/18/19 12:28 Sodium 141 mmol/L (137-145) 10/22/19 09:23 Potassium 3.5 mmol/L (3.6-5.0) L 10/22/19 09:23 Chloride 100.7 mmol/L (98-107) 10/22/19 09:23 Carbon Dioxide 24 mmol/L (22-30) 10/22/19 09:23 Anion Gap 20 mmol/L 10/22/19 09:23 BUN 6 mg/dL (7-17) L 10/22/19 09:23 Creatinine 0.9 mg/dL (0.7-1.2) 10/22/19 09:23 Estimated GFR > 60 ml/min 10/22/19 09:23 BUN/Creatinine Ratio 7 % 10/22/19 09:23 Glucose 101 mg/dL (65-100) H 10/22/19 09:23 POC Glucose 144 (70-105) H 10/23/19 10:19 Calcium 8.0 mg/dL (8.4-10.2) L 10/22/19 09:23 Phosphorus 2.70 mg/dL (2.5-4.5) 10/20/19 13:12 Magnesium 2.00 mg/dL (1.7-2.3) 10/20/19 13:12 Total Bilirubin 0.40 mg/dL (0.1-1.2) 10/18/19 12:28 AST 22 units/L (5-40) 10/18/19 12:28 ALT 21 units/L (7-56) 10/18/19 12:28 Alkaline Phosphatase 65 units/L (35-129) 10/18/19 12:28 Troponin T < 0.010 ng/mL (0.00-0.029) 10/18/19 18:41 NT-Pro-B Natriuret Pep 214.2 pg/mL (0-450) 10/18/19 15:02 Total Protein 7.0 g/dL (6.3-8.2) 10/18/19 12:28 Albumin 4.1 g/dL (3.9-5) 10/18/19 12:28 Albumin/Globulin Ratio 1.4 % 10/18/19 12:28 Lipase 14 units/L (13-60) 10/18/19 12:28 Valproic Acid 85.9 ug/mL (50-100) 10/18/19 12:28 Active Medications - Current Medications Current Medications: Generic Name Dose Route Start Last Admin Trade Name Freq PRN Reason Stop Dose Admin Acetaminophen 650 mg 10/18/19 14:55 10/19/19 04:33 Tylenol PO 650 mg Q4H PRN Administration Pain MILD(1-3)/Fever >100.5/MEZA Albuterol 2.5 mg 10/19/19 01:19 Proventil IH Q4HRT PRN Shortness Of Breath Aspirin 81 mg 10/19/19 15:00 10/23/19 09:47 Halfprin Ec PO 81 mg QDAY MARYA Administration Carvedilol 6.25 mg 10/19/19 14:00 10/23/19 09:47 Coreg PO 6.25 mg BID MARYA Administration Clonazepam 0.5 mg 10/19/19 22:00 10/23/19 09:46 Klonopin PO 0.5 mg BID MARYA Administration Clonidine HCl 0.2 mg 10/19/19 14:00 10/23/19 09:47 Catapres PO 0.2 mg BID MARYA Administration Fluoxetine HCl 20 mg 10/19/19 10:00 10/23/19 09:47 Prozac PO 20 mg DAILY MARYA Administration Hydralazine HCl 25 mg 10/19/19 14:00 10/23/19 09:20 Apresoline PO 25 mg TID MARYA Administration Hydralazine HCl 10 mg 10/21/19 15:14 Apresoline IV Q4HR PRN SBP>160 or DBP>110 Lacosamide 200 mg/ Sodium 120 mls @ 100 mls/hr 10/20/19 10:00 10/23/19 10:36 Chloride IV 100 mls/hr Q12H MARYA Administration Valproate Sodium 1,000 mg/ 110 mls @ 100 mls/hr 10/20/19 11:00 10/23/19 11:44 Sodium Chloride IV 100 mls/hr Q8H MARYA Administration Dextrose/Sodium Chloride 1,000 mls @ 75 mls/hr 10/20/19 19:00 10/23/19 05:22 D5/0.45ns IV 75 mls/hr DIRECT MARYA Administration Levetiracetam 1,000 mg/ 110 mls @ 400 mls/hr 10/22/19 09:27 10/23/19 10:00 Dextrose IV 400 mls/hr Q12HR MARYA Administration Lorazepam 2 mg 10/20/19 08:17 10/22/19 09:38 Ativan IV 2 mg Q1H PRN Administration Seizures Losartan Potassium 100 mg 10/21/19 16:00 10/23/19 09:46 Cozaar PO 100 mg QDAY MARYA Administration Montelukast Sodium 10 mg 10/19/19 18:00 10/22/19 19:52 Singulair PO 10 mg QPM MARYA Administration Ondansetron HCl 4 mg 10/18/19 14:55 10/19/19 22:07 Zofran IV 4 mg Q8H PRN Administration Nausea And Vomiting Pantoprazole Sodium 40 mg 10/23/19 10:00 10/23/19 09:48 Protonix PO 40 mg BID MARYA Administration Potassium Chloride 20 meq 10/20/19 10:00 10/23/19 09:47 K-Dur PO 20 meq QDAY MARYA Administration Sodium Chloride 10 ml 10/18/19 22:00 10/23/19 09:49 Sodium Chloride Flush Syringe 10 Ml IV 10 ml BID MARYA Administration Sodium Chloride 10 ml 10/18/19 14:55 Sodium Chloride Flush Syringe 10 Ml IV PRN PRN LINE FLUSH
[2019-10-23] MEDS: ONDANSETRON 4 MG/2 ML INJ IV PRN (15:59)
[2019-10-23] MEDS ORDERED: HYDROcodone/ACETAMINOPHEN 7.5-325MG TAB PO PRN (17:16)
[2019-10-23] MEDS: LORazepam 2 MG/ML VIAL IV PRN (20:24)
--- NOTE | 2019-10-23 20:39 | Event Note ---
Date: 10/23/19 Call to code mets, per RN patient had active seizure-like activity for 5 minutes. No acute issues noted, orders given Ativan 2 mg, continue seizure precautions and supportive care.
[2019-10-23] MEDS: SIMETHICONE 80 MG CHEW TAB PO SCH (22:37)
[2019-10-24] MEDS ORDERED: LACTULOSE 20 GM/30 ML ORAL LIQD PO PRN (09:52)
--- NOTE | 2019-10-24 09:54 | Progress Note ---
Assessment and Plan - Patient Problems (1) Generalized anxiety disorder Current Visit: No Status: Chronic Plan to address problem: It is possible that anxiety will be playing some role in patient's seizure. 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 Will treat anxiety. Anticipate discharge home to lessen anxiety when possible. Stable for transfer to floor today. (2) HTN (hypertension) Current Visit: No Status: Chronic Qualifiers: Hypertension type: essential hypertension Qualified Code(s): I10 - Essential (primary) hypertension Plan to address problem: Patient continues to have optimal control blood pressure no new changes in management. (3) Seizure Current Visit: No Status: Chronic Qualifiers: Convulsion type: unspecified Qualified Code(s): R56.9 - Unspecified convulsions Plan to address problem: Patient with uncontrolled seizure. Will increase Keppra at this time. Follow any other neurologic recommendations. (4) Abdominal pain Current Visit: Yes Status: Acute Plan to address problem: Patient left lower upper quadrant pain seems to be most likely secondary to gas. Patient is doing a lot of burping has not used the BM for several days. Will treat with lactulose and see if this will help alleviate gas patient doing a lot of burping. No chest pain. (5) DVT prophylaxis Current Visit: Yes Status: Acute (6) Acute chest pain Current Visit: No Status: Acute Plan to address problem: Patient chest pain unlike cardiac in origin. EKG negative serial isoenzymes negative. Will wait on cardiac catheterization until seizure work-up finished. This can also be done on outpatient basis. History Interval history: Patient status post cold met over the night for uncontrolled seizures. Lasting for approximately 5 minutes. Patient alert today spoke with brother about current management. Patient also had episode of epigastric pain associated with burping. Appears to be gas related. No bowel movement for several days. Hospitalist Physical - Constitutional Vitals: Temp Pulse Resp BP Pulse Ox 97.9 F 69 20 123/69 100 10/24/19 03:58 10/24/19 03:58 10/24/19 03:58 10/24/19 03:58 10/24/19 03:58 General appearance: Present: no acute distress, other (Patient is alert) - EENT Eyes: Present: PERRL, EOM intact ENT: hearing intact, clear oral mucosa, dentition normal - Neck Neck: Present: supple, normal ROM - Respiratory Respiratory: bilateral: CTA - Cardiovascular Rhythm: regular - Extremities Extremities: no ischemia, pulses intact, pulses symmetrical, No edema, normal temperature, normal color Peripheral Pulses: within normal limits - Abdominal General gastrointestinal: soft, non-tender, non-distended, hypoactive bowel sounds, no hepatomegaly, no splenomegaly, no mass, no hernia - Integumentary Integumentary: Present: clear, warm, dry - Psychiatric Psychiatric: appropriate mood/affect, intact judgment & insight, memory intact - Neurologic Neurologic: CNII-XII intact, focal deficits, moves all extremities DAVE score - Dave Score Age > 65: (0) No Aspirin use within the Past 7 Days: (1) Yes 3 or more CAD Risk Factors: (0) No 2 or more Angina events in past 24 hrs: (1) Yes Known CAD with more than 50% Stenosis: (0) No Elevated Cardiac Markers: (0) No ST Deviation Greater than 0.5mm: (0) No DAVE Score: 2 Results - Labs CBC & Chem 7: 10/22/19 06:28 10/22/19 09:23 Labs: Laboratory Last Values WBC 6.3 K/mm3 (4.5-11.0) 10/22/19 06:28 RBC 4.46 M/mm3 (3.65-5.03) 10/22/19 06:28 Hgb 13.3 gm/dl (10.1-14.3) 10/22/19 06:28 Hct 39.7 % (30.3-42.9) 10/22/19 06:28 MCV 89 fl (79-97) 10/22/19 06:28 MCH 30 pg (28-32) 10/22/19 06:28 MCHC 33 % (30-34) 10/22/19 06:28 RDW 13.2 % (13.2-15.2) 10/22/19 06:28 Plt Count 107 K/mm3 (140-440) L 10/22/19 06:28 Lymph % (Auto) 39.6 % (13.4-35.0) H 10/18/19 12:28 [place] % (Auto) 7.8 % (0.0-7.3) H 10/18/19 12:28 Eos % (Auto) 2.6 % (0.0-4.3) 10/18/19 12:28 Baso % (Auto) 0.9 % (0.0-1.8) 10/18/19 12:28 Lymph # 2.1 K/mm3 (1.2-5.4) 10/18/19 12:28 [place] # 0.4 K/mm3 (0.0-0.8) 10/18/19 12:28 Eos # 0.1 K/mm3 (0.0-0.4) 10/18/19 12:28 Baso # 0.0 K/mm3 (0.0-0.1) 10/18/19 12:28 Seg Neutrophils % 49.1 % (40.0-70.0) 10/18/19 12: Seg Neutrophils # 2.6 K/mm3 (1.8-7.7) 10/18/19 12:28 PT 13.4 Sec. (12.2-14.9) 10/18/19 12: INR 1.01 (0.87-1.13) 10/18/19 12:28 APTT 25.3 Sec. (24.2-36.6) 10/18/19 12:28 D-Dimer 230.08 ng/mlDDU (0-234) 10/18/19 12:28 Sodium 141 mmol/L (137-145) 10/22/19 09:23 Potassium 3.5 mmol/L (3.6-5.0) L 10/22/19 09:23 Chloride 100.7 mmol/L (98-107) 10/22/19 09:23 Carbon Dioxide 24 mmol/L (22-30) 10/22/19 09:23 Anion Gap 20 mmol/L 10/22/19 09:23 BUN 6 mg/dL (7-17) L 10/22/19 09:23 Creatinine 0.9 mg/dL (0.7-1.2) 10/22/19 09:23 Estimated GFR > 60 ml/min 10/22/19 09:23 BUN/Creatinine Ratio 7 % 10/22/19 09:23 Glucose 101 mg/dL (65-100) H 10/22/19 09:23 POC Glucose 82 (70-105) 10/24/19 06:20 Calcium 8.0 mg/dL (8.4-10.2) L 10/22/19 09:23 Phosphorus 2.70 mg/dL (2.5-4.5) 10/20/19 13:12 Magnesium 2.00 mg/dL (1.7-2.3) 10/20/19 13:12 Total Bilirubin 0.40 mg/dL (0.1-1.2) 10/18/19 12:28 AST 22 units/L (5-40) 10/18/19 12:28 ALT 21 units/L (7-56) 10/18/19 12:28 Alkaline Phosphatase 65 units/L (35-129) 10/18/19 12:28 Troponin T < 0.010 ng/mL (0.00-0.029) 10/18/19 18:41 NT-Pro-B Natriuret Pep 214.2 pg/mL (0-450) 10/18/19 15:02 Total Protein 7.0 g/dL (6.3-8.2) 10/18/19 12:28 Albumin 4.1 g/dL (3.9-5) 10/18/19 12:28 Albumin/Globulin Ratio 1.4 % 10/18/19 12:28 Lipase 14 units/L (13-60) 10/18/19 12:28 Valproic Acid 85.9 ug/mL (50-100) 10/18/19 12:28 Active Medications - Current Medications Current Medications: Generic Name Dose Route Start Last Admin Trade Name Freq PRN Reason Stop Dose Admin Acetaminophen 650 mg 10/18/19 14:55 10/19/19 04:33 Tylenol PO 650 mg Q4H PRN Administration Pain MILD(1-3)/Fever >100.5/MEZA Acetaminophen/Hydrocodone Bitart 1 each 10/23/19 17:16 [place] 7.5/325 PO Q6H PRN Pain, Moderate (4-6) Albuterol 2.5 mg 10/19/19 01:19 Proventil IH Q4HRT PRN Shortness Of Breath Aspirin 81 mg 10/19/19 15:00 10/23/19 09:47 Halfprin Ec PO 81 mg QDAY MARYA Administration Carvedilol 6.25 mg 10/19/19 14:00 10/23/19 22:40 Coreg PO 6.25 mg BID MARYA Administration Clonazepam 0.5 mg 10/19/19 22:00 10/23/19 22:37 Klonopin PO 0.5 mg BID MARYA Administration Clonidine HCl 0.2 mg 10/19/19 14:00 10/23/19 22:37 Catapres PO 0.2 mg BID MARYA Administration Hydralazine HCl 25 mg 10/19/19 14:00 10/23/19 22:39 Apresoline PO 25 mg TID MARYA Administration Hydralazine HCl 10 mg 10/21/19 15:14 Apresoline IV Q4HR PRN SBP>160 or DBP>110 Lacosamide 200 mg/ Sodium 120 mls @ 100 mls/hr 10/20/19 10:00 10/23/19 23:36 Chloride IV 100 mls/hr Q12H MARYA Administration Levetiracetam 1,000 mg/ 110 mls @ 400 mls/hr 10/22/19 09:27 10/23/19 22:31 Dextrose IV 400 mls/hr Q12HR MARYA Administration Lorazepam 2 mg 10/20/19 08:17 10/23/19 20:24 Ativan IV 2 mg Q1H PRN Administration Seizures Losartan Potassium 100 mg 10/21/19 16:00 10/23/19 09:46 Cozaar PO 100 mg QDAY MARYA Administration Ondansetron HCl 4 mg 10/18/19 14:55 10/23/19 15:59 Zofran IV 4 mg Q8H PRN Administration Nausea And Vomiting Pantoprazole Sodium 40 mg 10/23/19 10:00 10/23/19 22:39 Protonix PO 40 mg BID MARYA Administration Potassium Chloride 20 meq 10/20/19 10:00 10/23/19 09:47 K-Dur PO 20 meq QDAY MARYA Administration Simethicone 160 mg 10/23/19 20:00 10/23/19 22:37 Mylicon PO 160 mg TID MARYA Administration Sodium Chloride 10 ml 10/18/19 22:00 10/23/19 22:40 Sodium Chloride Flush Syringe 10 Ml IV 10 ml BID MARYA Administration Sodium Chloride 10 ml 10/18/19 14:55 Sodium Chloride Flush Syringe 10 Ml IV PRN PRN LINE FLUSH
[2019-10-24] MEDS: levETIRAcetam 500 MG/5 ML ORAL LIQD PO SCH ×2 (12:20→23:30)
[2019-10-24] MEDS: LACOSAMIDE 200 MG in SODIUM CHLORIDE 0.9% 100 ML IV SCH (12:20)
[2019-10-24] MEDS: PANTOPRAZOLE 40 MG TAB PO SCH ×2 (12:21→23:30)
[2019-10-24] MEDS: cloNIDine 0.2 MG TAB PO SCH ×2 (12:21→23:29)
[2019-10-24] MEDS: SIMETHICONE 80 MG CHEW TAB PO SCH ×3 (12:21→21:17)
[2019-10-24] MEDS: carvediloL 6.25 MG TAB PO SCH ×2 (12:21→23:29)
[2019-10-24] MEDS: ASPIRIN EC 81 MG TAB PO SCH (12:21)
[2019-10-24] MEDS: POTASSIUM CHLORIDE ER 20 MEQ TAB PO SCH (12:21)
[2019-10-24] MEDS: clonazePAM 0.5 MG TAB PO SCH (12:21)
[2019-10-24] MEDS: LOSARTAN 50 MG TAB PO SCH (12:21)
[2019-10-24] MEDS: hydrALAZINE 25 MG TAB PO SCH ×4 (12:25→21:18)
[2019-10-24] MEDS: LORazepam 2 MG/ML VIAL IV PRN ×2 (13:51→15:31)
--- NOTE | 2019-10-24 17:14 | Progress Note ---
Subjective Date of service: 10/24/19 Interval history: I spoke to out windows deployment technician this morning and she agreed with me the EEG normal also from prior admissions her te EEG was normal per tchnician exam at present on stat page to see patient she is awake and very stavle do not believe she needs to tarnsfer to ICU as the ativan was effective in ceasing seizures. Objective - Vital Sign Vital Signs - 12hr 10/24/19 10:00 O2 Sat by Pulse 99 Oximetry - Laboratory Findings CBC and BMP: 10/22/19 06:28 10/22/19 09:23 Abnormal Lab Findings: Abnormal Labs 10/18/19 10/18/19 10/20/19 12:28 12:28 08:14 RDW Plt Count Lymph % (Auto) 39.6 H [place] % (Auto) 7.8 H Potassium Chloride 97.8 L BUN Glucose 122 H POC Glucose 127 H Calcium 10/20/19 10/20/19 10/21/19 13:12 13:12 08:46 RDW 13.1 L Plt Count Lymph % (Auto) [place] % (Auto) Potassium Chloride BUN Glucose POC Glucose 118 H Calcium 8.3 L 10/21/19 10/22/19 10/22/19 22:53 02:16 05:12 RDW Plt Count Lymph % (Auto) [place] % (Auto) Potassium Chloride BUN Glucose POC Glucose 114 H 131 H 131 H Calcium 10/22/19 10/22/19 10/23/19 06:28 09:23 02:44 RDW Plt Count 107 L Lymph % (Auto) [place] % (Auto) Potassium 3.5 L Chloride BUN 6 L Glucose 101 H POC Glucose 130 H Calcium 8.0 L 10/23/19 10:19 RDW Plt Count Lymph % (Auto) [place] % (Auto) Potassium Chloride BUN Glucose POC Glucose 144 H Calcium
[2019-10-24] MEDS: ACETAMINOPHEN 325 MG TAB PO PRN (23:36)
[2019-10-25] MEDS: LACOSAMIDE 200 MG in SODIUM CHLORIDE 0.9% 100 ML IV SCH ×2 (00:03→10:39)
[2019-10-25] MEDS: clonazePAM 0.5 MG TAB PO SCH ×3 (00:21→22:10)
--- NOTE | 2019-10-25 00:40 | Cat Scan Report ---
CT HEAD WITHOUT CONTRAST INDICATION: s/p fall TECHNIQUE: Axial slices were obtained through the head. Coronal and sagittal reformatted images were obtained. COMPARISON: CT scan dated 10/21/2019 FINDINGS: There is no intracranial hemorrhage or extra-axial fluid collection. Ventricles, basilar cisterns, an d sulci appear within normal limits for age. There is no mass lesion or midline shift. No acute jack torial infarct is identified. Bone windows demonstrate no acute osseous abnormality. Paranasal sinuses and mastoid air cells appear clear. TECHNIQUE: All CT scans at this facility use dose modulation, iterative reconstruction, automated ex posure control, weight based dosing, when appropriate, to reduce radiation dose to as low as reasonab ly achievable. IMPRESSION: 1. No acute intracranial abnormality. Signer Name: Ranyd Francisco MD Signed: 10/25/2019 12:36 AM Workstation Name: [id number]
[2019-10-25] MEDS: ACETAMINOPHEN 325 MG TAB PO PRN (05:56)
[2019-10-25] MEDS: LORazepam 2 MG/ML VIAL IV PRN ×2 (07:15→20:17)
[2019-10-25] MEDS: hydrALAZINE 25 MG TAB PO SCH ×3 (10:16→22:12)
[2019-10-25] MEDS: cloNIDine 0.2 MG TAB PO SCH ×2 (10:17→22:11)
[2019-10-25] MEDS: SIMETHICONE 80 MG CHEW TAB PO SCH ×3 (10:17→22:11)
[2019-10-25] MEDS: carvediloL 6.25 MG TAB PO SCH ×2 (10:19→22:13)
[2019-10-25] MEDS: ASPIRIN EC 81 MG TAB PO SCH (10:21)
[2019-10-25] MEDS: LOSARTAN 50 MG TAB PO SCH (10:21)
[2019-10-25] MEDS: levETIRAcetam 500 MG/5 ML ORAL LIQD PO SCH ×2 (10:22→22:09)
[2019-10-25] MEDS: POTASSIUM CHLORIDE ER 20 MEQ TAB PO SCH (10:22)
[2019-10-25] MEDS: PANTOPRAZOLE 40 MG TAB PO SCH ×2 (10:23→22:13)
[2019-10-25] MEDS: ONDANSETRON 4 MG/2 ML INJ IV PRN (10:35)
--- NOTE | 2019-10-25 13:37 | Progress Note ---
Assessment and Plan Assessment and plan: Seizure disorder. Patient with another seizure this morning. Patient currently on Keppra 1500 mg twice daily. Await neurology recommendations General anxiety disorder. Continue medications. Hypertension. Continue antihypertensive medications. Abdominal pain. Resolved. GI to consider EGD as outpatient. Continue PPI History Interval history: Patient reportedly had a seizure this morning approximately 7 AM. Hospitalist Physical - Constitutional Vitals: Temp Pulse Resp BP Pulse Ox 97.9 F 77 20 128/93 98 10/25/19 12:07 10/25/19 12:07 10/25/19 12:07 10/25/19 12:07 10/25/19 12:07 General appearance: Present: no acute distress, other (Patient is alert) - EENT Eyes: Present: PERRL, EOM intact ENT: hearing intact, clear oral mucosa, dentition normal - Neck Neck: Present: supple, normal ROM - Respiratory Respiratory effort: normal Respiratory: bilateral: CTA - Cardiovascular Rhythm: regular Heart Sounds: Present: S1 & S2. Absent: gallop, rub - Extremities Extremities: no ischemia, No edema, Full ROM - Abdominal General gastrointestinal: soft, non-tender, non-distended, normal bowel sounds - Integumentary Integumentary: Present: clear, warm, dry - Neurologic Neurologic: CNII-XII intact, moves all extremities DAVE score - Dave Score Age > 65: (0) No Aspirin use within the Past 7 Days: (1) Yes 3 or more CAD Risk Factors: (0) No 2 or more Angina events in past 24 hrs: (1) Yes Known CAD with more than 50% Stenosis: (0) No Elevated Cardiac Markers: (0) No ST Deviation Greater than 0.5mm: (0) No DAVE Score: 2 Results - Labs CBC & Chem 7: 10/22/19 06:28 10/22/19 09:23 Labs: Laboratory Last Values WBC 6.3 K/mm3 (4.5-11.0) 10/22/19 06:28 RBC 4.46 M/mm3 (3.65-5.03) 10/22/19 06:28 Hgb 13.3 gm/dl (10.1-14.3) 10/22/19 06:28 Hct 39.7 % (30.3-42.9) 10/22/19 06:28 MCV 89 fl (79-97) 10/22/19 06:28 MCH 30 pg (28-32) 10/22/19 06:28 MCHC 33 % (30-34) 10/22/19 06:28 RDW 13.2 % (13.2-15.2) 10/22/19 06:28 Plt Count 107 K/mm3 (140-440) L 10/22/19 06:28 Lymph % (Auto) 39.6 % (13.4-35.0) H 10/18/19 12:28 [place] % (Auto) 7.8 % (0.0-7.3) H 10/18/19 12: Eos % (Auto) 2.6 % (0.0-4.3) 10/18/19 12: Baso % (Auto) 0.9 % (0.0-1.8) 10/18/19 12: Lymph # 2.1 K/mm3 (1.2-5.4) 10/18/19: [place] # 0.4 K/mm3 (0.0-0.8) 10/18/19 12: Eos # 0.1 K/mm3 (0.0-0.4) 10/18/19 12: Baso # 0.0 K/mm3 (0.0-0.1) 10/18/19 12: Seg Neutrophils % 49.1 % (40.0-70.0) 10/18/19 12: Seg Neutrophils # 2.6 K/mm3 (1.8-7.7) 10/18/19 12: PT 13.4 Sec. (12.2-14.9) 10/18/19 12:28 INR 1.01 (0.87-1.13) 10/18/19 12:28 APTT 25.3 Sec. (24.2-36.6) 10/18/19 12: D-Dimer 230.08 ng/mlDDU (0-234) 10/18/19 12:28 Sodium 141 mmol/L (137-145) 10/22/19 09:23 Potassium 3.5 mmol/L (3.6-5.0) L 10/22/19 09:23 Chloride 100.7 mmol/L (98-107) 10/22/19 09:23 Carbon Dioxide 24 mmol/L (22-30) 10/22/19 09:23 Anion Gap 20 mmol/L 10/22/19 09:23 BUN 6 mg/dL (7-17) L 10/22/19 09:23 Creatinine 0.9 mg/dL (0.7-1.2) 10/22/19 09:23 Estimated GFR > 60 ml/min 10/22/19 09:23 BUN/Creatinine Ratio 7 % 10/22/19 09:23 Glucose 101 mg/dL (65-100) H 10/22/19 09:23 POC Glucose 87 (70-105) 10/25/19 06:30 Calcium 8.0 mg/dL (8.4-10.2) L 10/22/19 09:23 Phosphorus 2.70 mg/dL (2.5-4.5) 10/20/19 13:12 Magnesium 2.00 mg/dL (1.7-2.3) 10/20/19 13:12 Total Bilirubin 0.40 mg/dL (0.1-1.2) 10/18/19 12:28 AST 22 units/L (5-40) 10/18/19 12:28 ALT 21 units/L (7-56) 10/18/19 12:28 Alkaline Phosphatase 65 units/L (35-129) 10/18/19 12:28 Troponin T < 0.010 ng/mL (0.00-0.029) 10/18/19 18:41 NT-Pro-B Natriuret Pep 214.2 pg/mL (0-450) 10/18/19 15:02 Total Protein 7.0 g/dL (6.3-8.2) 10/18/19 12:28 Albumin 4.1 g/dL (3.9-5) 10/18/19 12:28 Albumin/Globulin Ratio 1.4 % 10/18/19 12:28 Lipase 14 units/L (13-60) 10/18/19 12:28 Valproic Acid 85.9 ug/mL (50-100) 10/18/19 12:28 Active Medications - Current Medications Current Medications: Generic Name Dose Route Start Last Admin Trade Name Freq PRN Reason Stop Dose Admin Acetaminophen 650 mg 10/18/19 14:55 10/25/19 05:56 Tylenol PO 650 mg Q4H PRN Administration Pain MILD(1-3)/Fever >100.5/MEZA Acetaminophen/Hydrocodone Bitart 1 each 10/23/19 17:16 [place] 7.5/325 PO Q6H PRN Pain, Moderate (4-6) Albuterol 2.5 mg 10/19/19 01:19 Proventil IH Q4HRT PRN Shortness Of Breath Aspirin 81 mg 10/19/19 15:00 10/25/19 10:21 Halfprin Ec PO 81 mg QDAY MARYA Administration Carvedilol 6.25 mg 10/19/19 14:00 10/25/19 10:19 Coreg PO 6.25 mg BID MARYA Administration Clonazepam 0.5 mg 10/19/19 22:00 10/25/19 10:23 Klonopin PO 0.5 mg BID MARYA Administration Clonidine HCl 0.2 mg 10/19/19 14:00 10/25/19 10:17 Catapres PO 0.2 mg BID MARYA Administration Hydralazine HCl 25 mg 10/19/19 14:00 10/25/19 10:16 Apresoline PO 25 mg TID MARYA Administration Hydralazine HCl 10 mg 10/21/19 15:14 10/25/19 00:45 Apresoline IV 10 mg Q4HR PRN Administration SBP>160 or DBP>110 Lacosamide 200 mg 10/25/19 22:00 Vimpat PO Q12HR MARYA Lactulose 20 gm 10/24/19 09:52 Cephulac PO QDAY PRN Constipation Levetiracetam 1,500 mg 10/24/19 10:00 10/25/19 10:22 Keppra PO 1,500 mg BID MARYA Administration Lorazepam 2 mg 10/20/19 08:17 10/25/19 07:15 Ativan IV 2 mg Q1H PRN Administration Seizures Losartan Potassium 100 mg 10/21/19 16:00 10/25/19 10:21 Cozaar PO 100 mg QDAY MARYA Administration Ondansetron HCl 4 mg 10/18/19 14:55 10/25/19 10:35 Zofran IV 4 mg Q8H PRN Administration Nausea And Vomiting Pantoprazole Sodium 40 mg 10/23/19 10:00 10/25/19 10:23 Protonix PO 40 mg BID MARYA Administration Potassium Chloride 20 meq 10/20/19 10:00 10/25/19 10:22 K-Dur PO 20 meq QDAY MARYA Administration Simethicone 160 mg 10/23/19 20:00 10/25/19 10:17 Mylicon PO 160 mg TID MARYA Administration Sodium Chloride 10 ml 10/18/19 22:00 10/25/19 10:23 Sodium Chloride Flush Syringe 10 Ml IV 10 ml BID MARYA Administration Sodium Chloride 10 ml 10/18/19 14:55 Sodium Chloride Flush Syringe 10 Ml IV PRN PRN LINE FLUSH
--- NOTE | 2019-10-25 17:01 | Gastroenterology Progress Note ---
Assessment and Plan GI: previous seen for epigastric pain with consideration of egd inpt vs outpt before seizures - pt w/o GI complaints - would prefer egd as outpt - if feels inpt further management please recall - will sign off Subjective Date of service: 10/25/19 Interval history: - denies GI complaints Objective - Constitutional Vitals: Temp Pulse Resp BP Pulse Ox 97.9 F 70 20 129/91 98 10/25/19 12:07 10/25/19 15:08 10/25/19 12:07 10/25/19 15:08 10/25/19 12:07 General appearance: no acute distress - Neck Neck: supple - Respiratory Respiratory: bilateral: CTA - Cardiovascular Rhythm: regular Heart Sounds: Present: S1 & S2 - Gastrointestinal General gastrointestinal: Present: soft, non-tender - Labs CBC & Chem 7: 10/22/19 06:28 10/22/19 09:23 Labs: Laboratory Results - last 24 hr 10/25/19 06:30 POC Glucose 87
[2019-10-25] MEDS: LACOSAMIDE 100 MG TAB PO SCH (22:13)
[2019-10-26] MEDS: LORazepam 2 MG/ML VIAL IV PRN (03:26)
--- NOTE | 2019-10-26 08:55 | Discharge Summary ---
Providers - Providers Date of Admission: 10/20/19 11:46 Date of discharge: 10/26/19 Attending physician: ЕЛЕНА CARD 10/19/19 10:41 Consult to Physician [CONS] Routine Comment: Consulting Provider: YULIANA MYERS Physician Instructions: Reason For Exam: Epigastric pain, may need EGD 10/20/19 11:16 Consult to Physician [CONS] Routine Comment: Consulting Provider: GABI KIM Physician Instructions: Reason For Exam: Breakthrough seizures Primary care physician: TREAD BUILDER Hospitalization Reason for admission: Cp and upper abd pain Condition: Stable Hospital course: Patient is a 49 y/o female with PMH of COPD/asthma, HTN, GERD, seizure disorder, obesity, migraine headache, and systolic CHF who presented to ED with c/o CP and upper abdominal pain. She was evaluated by cardiology and ACS was ruled out. Patient was noted to have no ischemic ECG changes and negative troponin x3. Patient reportedly had a normal stress test November 2018. Cardiology felt that symptoms were most likely GI related. Etiology of chest pain likely secondary to GERD therefore, GI consultation was obtained and CT of the abdomen pelvis revealed hepatic steatosis. GI has some considerations for EGD with for the epigastric pain. However, GI opted to do outpatient EGD because patient had seizures during hospitalization. Chest pain and abdominal pain completely resolved. Patient did have hospital complication with seizures that was evaluated by neurology. CT scan of the head was obtained which was found to be normal. Patient reportedly was alert immediately following seizure activities that were witnessed in the hospital. Therefore, neurology felt that this was not epileptiform and potentially pseudoseizures. EEG was obtained for further work-up which was found to be normal. Patient had no further seizure activity or other complaints of pain. Therefore, patient is felt to have received maximal hospital benefit for discharge. Dedicated discharge time 32 minutes. Disposition: [id number] TO HOME OR SELFCARE Time spent for discharge: 32 - Discharge Diagnoses (1) Abdominal pain Status: Acute (2) Chest pain Status: Acute Qualifiers: (3) Hypertension Status: Acute Qualifiers: Hypertension type: essential hypertension Qualified Code(s): I10 - Essential (primary) hypertension (4) Seizure disorder Status: Chronic Core Measure Documentation - Palliative Care Palliative Care/ Comfort Measures: Not Applicable - Core Measures Any of the following diagnoses?: none Exam - Constitutional Vitals: Temp Pulse Resp BP Pulse Ox 98.7 F 76 16 163/87 97 10/26/19 04:20 10/26/19 04:20 10/26/19 04:20 10/26/19 04:20 10/26/19 04:20 General appearance: Present: no acute distress, well-nourished - EENT Eyes: Present: PERRL ENT: hearing intact, clear oral mucosa - Neck Neck: Present: supple, normal ROM - Respiratory Respiratory effort: normal Respiratory: bilateral: CTA - Cardiovascular Heart Sounds: Present: S1 & S2. Absent: rub, click - Extremities Extremities: pulses symmetrical, No edema Peripheral Pulses: within normal limits - Abdominal General gastrointestinal: Present: soft, non-tender, non-distended, normal bowel sounds Female genitourinary: Present: normal - Integumentary Integumentary: Present: clear, warm, dry - Musculoskeletal Musculoskeletal: gait normal, strength equal bilaterally - Psychiatric Psychiatric: appropriate mood/affect, intact judgment & insight - Neurologic Neurologic: CNII-XII intact, moves all extremities Plan Activity: advance as tolerated, no driving until cleared by PCP Weight Bearing Status: Weight Bear as Tolerated Follow up with: PRIMARY CARE, [Primary Care Provider] - 7 Days GABI KIM MD [Staff Physician] - 7 Days LINDSEY GALLO MD [Staff Physician] - 7 Days JELENA DUAVLL MD [Staff Physician] - 7 Days Prescriptions: Aspirin [Adult Aspirin] 81 mg PO QDAY #30 tablet. hydrALAZINE [Apresoline TAB] 25 mg PO TID #90 tablet cloNIDine [Catapres] 0.2 mg PO BID #60 tablet carvediloL [Coreg] 6.25 mg PO BID #60 tablet FLUoxetine HCL [FLUoxetine] 20 mg PO DAILY #30 levETIRAcetam [Keppra TAB] 1,500 mg PO BID #60 tab Losartan/Hydrochlorothiazide [Losartan-Hctz 100-25 mg Tab] 1 each PO DAILY #30 HYDROcodone/APAP 7.5-325 [[place] 7.5-325 mg TAB] 1 each PO Q6H PRN #12 tablet PRN Reason: Pain, Moderate (4-6) Montelukast [Singulair] 10 mg PO QPM #30 tablet Lacosamide [Vimpat] 200 mg PO Q12HR #60 tablet Ondansetron [Zofran ODT TAB] 4 mg PO Q8HR #10 tab.pietro
[2019-10-26] MEDS: levETIRAcetam 500 MG/5 ML ORAL LIQD PO SCH (09:31)
[2019-10-26] MEDS: LACOSAMIDE 100 MG TAB PO SCH (09:32)
[2019-10-26] MEDS: LOSARTAN 50 MG TAB PO SCH (09:32)
[2019-10-26] MEDS: ASPIRIN EC 81 MG TAB PO SCH (09:33)
[2019-10-26] MEDS: carvediloL 6.25 MG TAB PO SCH (09:33)
[2019-10-26] MEDS: clonazePAM 0.5 MG TAB PO SCH (09:33)
[2019-10-26] MEDS: PANTOPRAZOLE 40 MG TAB PO SCH (09:33)
[2019-10-26] MEDS: hydrALAZINE 25 MG TAB PO SCH (09:33)
[2019-10-26] MEDS: POTASSIUM CHLORIDE ER 20 MEQ TAB PO SCH (09:33)
[2019-10-26] MEDS: SIMETHICONE 80 MG CHEW TAB PO SCH (09:33)
[2019-10-26 12:19] VITALS: BP 133/84
== END 2019-10-26 13:05 | disposition home or self-care (01) | DRG 392 ==
LOC: ED 11:10 → 3A 14:55 → INTOOBSV 14:55 → 3A 16:27 → OBSVTOIN 10-20 11:46 → IMCU 10-20 14:57 → 3A 10-23 17:27
PROVIDERS: ADMIT Internal Medicine; ATTEND Hospitalist
DX: K21.9 Gastro-esophageal reflux disease without esophagitis (principal); G40.909 Epilepsy, unspecified, not intractable, without status epilepticus; I50.22 Chronic systolic (congestive) heart failure; J44.9 Chronic obstructive pulmonary disease, unspecified; I11.0 Hypertensive heart disease with heart failure; E66.9 Obesity, unspecified; I42.8 Other cardiomyopathies; K76.0 Fatty (change of) liver, not elsewhere classified; F41.1 Generalized anxiety disorder; G43.909 Migraine, unspecified, not intractable, without status migrainosus; Z90.710 Acquired absence of both cervix and uterus; Z82.49 Family history of ischemic heart disease and other diseases of the circulatory system; Z83.3 Family history of diabetes mellitus; Z88.5 Allergy status to narcotic agent; Z91.041 Radiographic dye allergy status; Z79.82 Long term (current) use of aspirin; Z79.899 Other long term (current) drug therapy; Z68.41 Body mass index [BMI] 40.0-44.9, adult
CPT/HCPCS: 36415; 70450; 71045; 74176; 80048; 80053; 80164; 82962; 83690; 83735; 83880; 84100; 84484; 85025; 85027; 85379; 85610; 85730; 87116; 93005; 93010; 94640; 94760; 95819; 96374; 96375; G0378; C9113; C9254; J0360; J1644; J1953; J2060; J2405; J3010

== ENCOUNTER 2020-12-25 14:35 | Emergency (ER) | payer MEDICAID ==
[2020-12-25 15:07] VITALS: BP 185/121
[2020-12-25 16:10] LABS: Bilirubin,Urine NEG (Negative); Blood,Urine NEG (Negative); Color,Urine Yellow (Yellow); Mucus,Urine FEW /HPF; Protein,Urine <15 mg/dL mg/dL (Negative); Urobilinogen,Urine < 2.0 mg/dL (<2.0)
== END 2020-12-25 16:48 | disposition left against medical advice (07) ==
LOC: ED 14:35
DX: R10.9 Unspecified abdominal pain (principal); R11.2 Nausea with vomiting, unspecified; Z53.21 Procedure and treatment not carried out due to patient leaving prior to being seen by health care provider
CPT/HCPCS: 81001

== ENCOUNTER 2022-03-22 13:16 | Outpatient (CLI) | payer MEDICAID ==
[2022-03-22 14:06] LABS: Hematocrit 38.8 % (30.3-42.9); Hemoglobin 12.4 gm/dl (10.1-14.3); Mean Corpuscular HGB Conc 32 % (30-34); Mean Corpuscular Volume 89 fl (79-97); Red Blood Count 4.35 M/mm3 (3.65-5.03); Red Cell Distribution Width 13.7 % (13.2-15.2)
[2022-03-22 14:08] LABS: Platelet Count 127 K/mm3 (140-440)
[2022-03-22 14:27] LABS: Albumin 4.1 g/dL (3.9-5)
[2022-03-23 15:28] LABS: Creatinine,Urine 307.1 mg/dL (0.1-20.0); Protein/Creatinine Ratio,Urine 0.08
== END 2022-03-22 13:17 | disposition home or self-care (01) ==
LOC: LAB 13:16
PROVIDERS: ATTEND Student in an Organized Health Care Education/Training Program
DX: R94.4 Abnormal results of kidney function studies (principal)
CPT/HCPCS: 36415; 80048; 82040; 82570; 84100; 84156; 85027